=== PATIENT | male | born 1955 | race Caucasian/White ===

== ENCOUNTER 2016-07-12 13:54 | Inpatient (IN) | payer MEDICARE, OTHER ==
[~2016-07-12] VITALS: Ht 177.8 cm; Wt 88.6 kg
[2016-07-12] VITALS (11 sets, daily range): BP systolic 133–169; BP diastolic 59–82; PULSE 77–106; RESP 18–24; TEMP 97.3; O2SAT 93–97
[~2016-07-12 13:54] MED LIST: EXTR500C PO; TAB-TAB PO; TEMA15CA PO; TESTOSTERONE GEL TOP; TRAM50TA PO; VITA400D PO
[2016-07-12] MEDS ORDERED: SODIUM CHLORIDE 0.9% FLUSH 10 ML FLUSH IVF PRN (15:30)
[2016-07-12] MEDS ORDERED: AMLO5TAB2 PO (15:39)
--- NOTE | 2016-07-12 16:00 | PD ---
HPI Chief Complaint: Respiratory Symptoms Time Seen by Provider: 16:00 Travel History International Travel<30 days: No Contact w/Intl Traveler<30days: No Traveled to known affect area: No History of Present Illness HPI 60-year-old male with a history of hypertension and hyperlipidemia presents to the emergency department for evaluation of shortness of breath and productive cough for 2 weeks. The patient states that he had a productive cough with yellow sputum for the last 2 weeks. States that he has not been able to cough over the last several days due to severe rib pain after coughing for so long. He states that he has had chills and night sweats over the past week as well. He states that he went to [facility] walk in clinic today and they did chest x-ray which showed he had "fluid" in his lungs. He denies fever , chest pain, lightheadedness, dizziness, vomiting, diarrhea, abdominal pain, swelling of the extremities. Denies any history of heart disease or [place]. Denies a history of blood clots. No recent travel or sick contacts. Denies any history of lung disease however admits to a 40 year smoking history, quit 5 years ago. No other complaints. PFSH Past Medical History Cancer: No Cardiovascular Problems: No Diabetes: No Endocrine: No Genitourinary: Yes (ELEVATED PSA) Hepatitis: Yes (HEP C) Hiatal Hernia: No Hypertension: Yes Immune Disorder: No Medical other: Yes (DELAYED PRESSURE URTICARIA) Musculoskeletal: No Neurologic: No Psychiatric: No Reproductive: No Respiratory: Yes (RECENT HX OF SEVERE BRONCHITIS) Thyroid Disease: No Past Surgical History AICD: No Joint Replacement: No Pacemaker: No Other Surgery: Yes Social History Alcohol Use: No Tobacco Use: No Substance Use: No Allergies-Medications (Allergen,Severity, Reaction): Coded Allergies: No Known Allergies (Unverified , 07/12/16) Reported Meds & Prescriptions Reported Meds & Active Scripts Active Reported Viagra (Sildenafil Citrate) 100 Mg Tab 100 Mg PO DAILY PRN Ventolin Hfa 18 GM Inh (Albuterol Sulfate) 90 Mcg/Act Aer 1 Puff INH Q4H PRN Rosuvastatin (Rosuvastatin Calcium) 5 Mg Tab 5 Mg PO DAILY Ranitidine (Ranitidine HCl) 150 Mg Tab 150 Mg PO BID Seroquel (Quetiapine Fumarate) 300 Mg Tab 300 Mg PO HS Ibuprofen 400 Mg Tab 400 Mg PO Q6H PRN Hydrocodone-Acetaminophen 10-325 mg Tab 1 Tab PO Q4H PRN Depakote DR (Divalproex Sodium) 500 Mg Tabdr 1,000 Mg PO DAILY Clobetasol Emulsion Topical 0.05% Foam 1 Applic TOPICAL BID Amlodipine (Amlodipine Besylate) 5 Mg Tab 5 Mg PO DAILY Review of Systems Except as stated in HPI: all other systems reviewed are Neg Physical Exam Narrative GENERAL: Well-nourished and well-developed pleasant male patient in no acute distress. SKIN: Warm and dry. HEAD: Normocephalic and atraumatic. EYES: No injection, drainage, or hyphema noted. PERRLA. EOMI. ENT: No nasal drainage noted. Oropharynx is clear. NECK: Supple and the trachea is midline. CARDIOVASCULAR: Regular rate and rhythm. RESPIRATORY: Decreased breath sounds at bases. No accessory muscle use, wheezing, rhonchi, or crackles. Tenderness to palpation of right ribs, no obvious deformities or step off noted. GASTROINTESTINAL: Abdomen is soft, non-tender, and nondistended. MUSCULOSKELETAL: No obvious deformities, swelling, cyanosis, or ecchymosis is present throughout the upper and lower extremities. Patient has full range of motion without any signs of neurovascular compromise. NEUROLOGICAL: Awake, alert, and oriented. Normal speech and gait. Cranial nerves are grossly intact. Data Data Last Documented VS Vital Signs Date Time Temp Pulse Resp B/P Pulse Ox O2 Delivery O2 Flow Rate FiO2 07/12/16 17:56 101 18 169/82 94 Nasal Cannula 2 07/12/16 13:55 97.3 Orders Complete Blood Count With Diff (07/12/16:) Comprehensive Metabolic Panel (07/12/16:) B-Type Natriuretic Peptide (07/12/16:) Act Partial Throm Time (Ptt) (07/12/16:) Prothrombin Time / Inr (Pt) (07/12/16:) Magnesium (Mg) (07/12/16 15:) Ckmb (Isoenzyme) Profile (07/12/16:) Troponin I (07/12/16 15:) Iv Access Insert/Monitor (07/12/16:) Electrocardiogram (07/12/16:) Ecg Monitoring (4/14/17 15:22) Oximetry (07/12/16 15:22) Oxygen Administration (07/12/16 15:22) Chest, Single Ap (07/12/16 15:22) Sodium Chloride 0.9% Flush (Ns Flush) (07/12/16 15:30) Sodium Chlor 0.9% 1000 Ml Inj (Ns 1000 M (07/12/16 16:01) Vascular Access Team Consult PRN (07/12/16 17:21) Ceftriaxone Inj (Rocephin Inj) (07/12/16 17:45) Azithromycin Inj (Zithromax Inj) (07/12/16 17:45) Potassium Chloride Eff (K-Lyte Cl Eff) (07/12/16 17:45) Ct Thorax/ Chest Wo Iv Contras (07/12/16 17:47) Sodium Chlor 0.9% 1000 Ml Inj (Ns 1000 M (07/12/16 18:47) Admit To Inpatient (07/12/16 ) Code Status (07/12/16 18:46) Vital Signs (Adult) Q4H (07/12/16 18:46) Activity Oob With Assistance (07/12/16 18:46) Diet Npo (07/12/16 Dinner) Sodium Chloride 0.9% Flush (Ns Flush) (07/12/16 19:00) Sodium Chloride 0.9% Flush (Ns Flush) (07/12/16 21:00) Acetaminophen (Tylenol) (07/12/16 19:00) Ondansetron Inj (Zofran Inj) (07/12/16 19:00) Bisacodyl Supp (Dulcolax Supp) (07/12/16 19:00) Temazepam (Restoril) (07/12/16 19:00) Basic Metabolic Panel (Bmp) (07/13/16 06:00) Complete Blood Count With Diff (07/13/16 06:00) Resp Oxygen Kermit C Titrat 1-4 L (07/12/16 ) Pt Request For Service (07/12/16 18:46) Scd Bilateral/Knee High PJ.BID (07/12/16 18:46) Naloxone Inj (Narcan Inj) (07/12/16 19:00) Inpatient Certification (07/12/16 ) Lactic Acid Sepsis Protocol (07/12/16 18:47) Influenzae A/B Antigen (07/12/16 18:47) Blood Culture (07/12/16 18:47) Total Protein (07/12/16 18:48) Ldh Serum (07/12/16 18:48) Us Guided Thoracentesis (07/12/16 ) Consent (07/12/16 18:48) Amylase, Pleural Fluid (07/12/16 18:48) Glucose, Pleural Fluid (07/12/16 18:48) Ldh, Pleural Fluid (07/12/16 18:48) Pleural Fluid Ph (07/12/16 18:48) Pleural Fl Cell Count + Diff (07/12/16 18:48) Fluid Culture And Gram Stain (07/12/16 18:48) Fluid Afb Culture And Stain (07/12/16 18:48) Fluid Fungus Culture And Stain (07/12/16 18:48) Cytology Request For Service (07/12/16 18:48) Total Protein, Pleural Fluid (07/12/16 18:48) Piperacil-Tazo 3.375 Gm Premix (Zosyn 3. (07/12/16 19:00) Labs Laboratory Tests Test 07/12/16 16:30 White Blood Count 30.2 TH/MM3 Red Blood Count 4.45 MIL/MM3 Hemoglobin 12.7 GM/DL Hematocrit 37.4 % Mean Corpuscular Volume 84.1 FL Mean Corpuscular Hemoglobin 28.6 PG Mean Corpuscular Hemoglobin 34.0 % Concent Red Cell Distribution Width 15.7 % Platelet Count 701 TH/MM3 Mean Platelet Volume 7.8 FL Neutrophils (%) (Auto) 84.0 % Lymphocytes (%) (Auto) 8.3 % Monocytes (%) (Auto) 7.1 % Eosinophils (%) (Auto) 0.1 % Basophils (%) (Auto) 0.5 % Neutrophils # (Auto) 25.4 TH/MM3 Lymphocytes # (Auto) 2.5 TH/MM3 Monocytes # (Auto) 2.1 TH/MM3 Eosinophils # (Auto) 0.0 TH/MM3 Basophils # (Auto) 0.1 TH/MM3 CBC Comment AUTO DIFF Differential Total Cells 100 Counted Neutrophils % (Manual) 81 % Band Neutrophils % 7 % Lymphocytes % 6 % Monocytes % 5 % Basophils % 1 % Neutrophils # (Manual) 26.6 TH/MM3 Differential Comment FINAL DIFF MANUAL Toxic Granulation 1+ Toxic Vacuolation PRESENT Platelet Estimate HIGH Platelet Morphology Comment NORMAL Red Cell Morphology Comment NORMAL Prothrombin Time 14.5 SEC Prothromb Time International 1.3 RATIO Ratio Activated Partial 28.0 SEC Thromboplast Time Sodium Level 132 MEQ/L Potassium Level 3.2 MEQ/L Chloride Level 94 MEQ/L Carbon Dioxide Level 27.1 MEQ/L Anion Gap 11 MEQ/L Blood Urea Nitrogen 10 MG/DL Creatinine 0.75 MG/DL Estimat Glomerular Filtration 106 ML/MIN Rate Random Glucose 112 MG/DL Calcium Level 8.6 MG/DL Magnesium Level 2.4 MG/DL Total Bilirubin 1.6 MG/DL Aspartate Amino Transf 41 U/L (AST/SGOT) Alanine Aminotransferase 103 U/L (ALT/SGPT) Alkaline Phosphatase 169 U/L Total Creatine Kinase 33 U/L Troponin I LESS THAN 0.02 NG/ML B-Type Natriuretic Peptide 52 PG/ML Total Protein 7.5 GM/DL Albumin 1.9 GM/DL [facility] Medical Decision Making Medical Screen Exam Complete: Yes Emergency Medical Condition: Yes Differential Diagnosis Pneumonia versus pleural effusion versus PE versus ACS versus heart failure Narrative Course 60-year-old male presents to the emergency department for evaluation of shortness of breath and cough for 2 weeks. Patient is afebrile. He is initially tachycardic with a heart rate of 106 bpm. Oxygen saturation is 93% on 2 L. Decreased breath sounds at the bases. Patient does have mild work of breathing. IV access is obtained, labs drawn and sent. Patient is placed on cardiac telemetry and pulse oximetry monitoring. Chest x-ray is been ordered and is pending. CBC shows an elevated white blood cell count of 30.2 with 7% band neutrophils. Mild anemia with a hemoglobin of 12.7, hematocrit 37.4. CMP shows mild hypokalemia with a potassium of 3.2 and slightly elevated LFTs. Troponin is less than 0.02 BNP is 52. Coags are unremarkable. Chest x-ray shows partial subtotal opacification of the right hemithorax characteristic of a large effusion with underlying lung consolidation or mass. Patient is administered IV Rocephin and Zithromax. He'll be [facility] to [facility]'s service and will get a thoracentesis by interventional radiology. I discussed the case with my attending physician Dr. Abreu who is aware of the patients history, physical examination findings, and treatment plan. Sepsis Criteria SIRS Criteria (2 or more): Heart rate over 90, WBC > 45625, < 4000 or > 10% bands Sepsis Criteria (SIRS+source): Infect source susp/known Physician Communication Physician Communication I spoke with Dr. Rdz [facility] who agrees to admit the patient to his service. Diagnosis Primary Impression: Sepsis Qualified Code: A41.9 - Sepsis, due to unspecified organism Additional Impressions: Pleural effusion on right Pneumonia Qualified Code: J18.9 - Pneumonia of right lung due to infectious organism, unspecified part of lung Admitting Information Admitting Physician Requests: Admit Charis Adam Jul 12, 2016 16:00
[2016-07-12] MEDS ORDERED: SODIUM CHLOR 0.9% 1000 ML INJ 1,000 ML IV SCH ×2 (16:01→18:47)
[2016-07-12 17:02] LABS: AUTOMATED NEUTROPHIL # 25.4 TH/MM3 (1.8-7.7); BASOPHIL # 0.1 TH/MM3 (0-0.2); BASOPHIL % 0.5 % (0.0-2.0); EOSINOPHIL % 0.1 % (0.0-4.0); HEMATOCRIT 37.4 % (39.0-51.0); LYMPH % 8.3 % (9.0-44.0); LYMPHOCYTE # 2.5 TH/MM3 (1.0-4.8); MEAN CELL VOLUME 84.1 FL (80.0-100.0); MEAN CORPUSCULAR HEMOGLOBIN 28.6 PG (27.0-34.0); MONO % 7.1 % (0.0-8.0); PLATELET COUNT 701 TH/MM3 (150-450); RED BLOOD COUNT 4.45 MIL/MM3 (4.50-5.90); RED CELL DISTRIBUTION WIDTH 15.7 % (11.6-17.2); WHITE BLOOD COUNT 30.2 TH/MM3 (4.0-11.0)
[2016-07-12 17:03] LABS: HEMO FLAGS AUTO DIFF
[2016-07-12 17:22] LABS: INTERNATIONAL NORMALIZED RATIO 1.3 RATIO; PROTHROMBIN TIME - PATIENT 14.5 SEC (9.8-11.6)
[2016-07-12 17:25] LABS: ANION GAP 11 MEQ/L (5-15); AST (GOT) 41 U/L (15-37); BICARBONATE 27.1 MEQ/L (21.0-32.0); BLOOD UREA NITROGEN 10 MG/DL (7-18); CHLORIDE 94 MEQ/L (98-107); GLOMERULAR FILTRATION RATE 106 ML/MIN (>89); MAGNESIUM 2.4 MG/DL (1.5-2.5); POTASSIUM 3.2 MEQ/L (3.5-5.1); SODIUM (NA) 132 MEQ/L (136-145)
[2016-07-12 17:29] LABS: ALKALINE PHOSPHATASE 169 U/L (45-117); ALT (GPT) 103 U/L (12-78); TOTAL BILIRUBIN ADULT 1.6 MG/DL (0.2-1.0)
[2016-07-12 17:33] LABS: CREATINE KINASE 33 U/L (39-308)
--- NOTE | 2016-07-12 17:33 | RADRPT ---
EXAM DATE/TIME: 07/12/2016 16:22 [facility] COMPARISON: No previous studies available for comparison. INDICATIONS : Shortness of breath, discomfort in right chest MEDICAL HISTORY : None. SURGICAL HISTORY : None. ENCOUNTER: Initial ACUITY: 1 day PAIN SCORE: 0/10 LOCATION: Right chest FINDINGS: A single view of the chest demonstrates partial subtotal opacification of the right hemithorax. Heart is normal in size. Left lung is clear. CONCLUSION: Partial subtotal opacification of the right hemithorax characteristic of a large effusion with underl sue lung consolidation or mass. Pillo Benitez MD on July 12, 2016 at 17:30 Board Certified Radiologist. This report was verified electronically.
[2016-07-12] MEDS ORDERED: POTASSIUM CHLORIDE 25 MEQ EFFERVESCENT TAB PO ONE (17:45)
[2016-07-12] MEDS ORDERED: cefTRIAXone INJ 1,000 MG in SODIUM CHLORIDE 0.9% INJ 100 ML IV ONE (17:45)
[2016-07-12] MEDS ORDERED: AZITHROMYCIN INJ 500 MG in SODIUM CHLOR 0.9% 250 ML INJ 250 ML IV ONE (17:45)
[2016-07-12] MEDS ORDERED: [UNRECOGNIZED DRUG - CODE] TOPICAL (17:46)
[2016-07-12] MEDS ORDERED: DEPA500T PO (17:46)
[2016-07-12 17:49] LABS: BANDS 7 % (0-6); BASOPHILS 1 % (0-2); NEUTROPHIL # MANUAL DIFF 26.6 TH/MM3 (1.8-7.7); POLYS (SEG NEUTROPHILS) 81 % (16-70); WBC DIFF SAMPLE 100
[2016-07-12 17:50] LABS: PLATELET ESTIMATE SMEAR HIGH (NORMAL); PLATELET MORPHOLOGY NORMAL (NORMAL); SCAN/DIFF FINAL DIFF MANUAL; TOXIC GRANULATION 1+ (NORMAL); TOXIC VACUOLATION PRESENT (NONE SEEN)
[2016-07-12] MEDS ORDERED: VENTAER INH (17:53)
[2016-07-12] MEDS ORDERED: VIAG100T PO (17:53)
[2016-07-12] MEDS ORDERED: HYDR-3583 PO (17:53)
[2016-07-12] MEDS ORDERED: IBUP400T20 PO (17:53)
[2016-07-12] MEDS ORDERED: ROSU1TAB4 PO (17:53)
[2016-07-12] MEDS ORDERED: RANI150T PO (17:53)
[2016-07-12] MEDS ORDERED: SERO300T PO (17:53)
[2016-07-12] MEDS ORDERED: NON-FORMULARY DRUG (Rosuvastatin 5 MG) PO SCH (19:00)
[2016-07-12] MEDS ORDERED: ONDANSETRON HCL 4 MG/2 ML VIAL IVP PRN (19:00)
[2016-07-12] MEDS ORDERED: RESP: ALBUTEROL 2.5 MG/IPRATROPIUM 0.5 MG NEB (PRN) NEB (19:00)
[2016-07-12] MEDS ORDERED: TEMAZEPAM 15 MG CAP PO PRN (19:00)
[2016-07-12] MEDS ORDERED: BISACODYL 10 MG SUPP RECTAL PRN (19:00)
[2016-07-12] MEDS ORDERED: NALOXONE HCL 0.4 MG/ML AMP IV PRN (19:00)
[2016-07-12] MEDS ORDERED: SODIUM CHLORIDE 0.9% FLUSH 10 ML FLUSH IV FLUSH PRN (19:00)
[2016-07-12] MEDS ORDERED: ACETAMINOPHEN 325 MG TAB PO PRN (19:00)
[2016-07-12 19:10] LABS: LDH SERUM 209 U/L (87-241)
[2016-07-12] MEDS ORDERED: PILL SPLITTER OTHER PRN (19:15)
--- NOTE | 2016-07-12 19:52 | RADRPT ---
EXAM DATE/TIME: 07/12/2016 18:11 [facility] COMPARISON: No previous studies available for comparison. INDICATIONS : Shortness of breath and cough. RADIATION DOSE: 6.17 CTDIvol (mGy) MEDICAL HISTORY : Hypertension. Hepatitis C. Bronchitis. SURGICAL HISTORY : None. ENCOUNTER: Initial ACUITY: 2 weeks PAIN SCALE: 5/10 LOCATION: chest TECHNIQUE: Volumetric scanning of the chest was performed. Using automated exposure control and adjustment of t he mA and/or kV according to patient size, radiation dose was kept as low as reasonably achievable to obtain optimal diagnostic quality images. FINDINGS: There is an enormous loculated right pleural effusion filling the entire mid to lower chest cavity on the right sparing some portions of the anterior and medial right upper lobe region. There is adjacen t compressive atelectasis. The contralateral left lung is notable for minimal streaky parenchymal [place] in the posterior medial left base which may be atelectasis or scarring. There are clustered mildly prominent lymph nodes in the central mediastinum with nodes in the precari nal subcarinal and paratracheal region exceeding 1 cm in short axis dimension. There is no evidence of axillary adenopathy or chest wall destructive change. There are in the visual ized upper abdomen cavity adrenals appear benign. CONCLUSION: Enormous loculated right pleural effusion. Enlarged mediastinal lymph nodes. Paras Chang MD on July 12, 2016 at 19:46 Board Certified Radiologist. This report was verified electronically.
[2016-07-12] MEDS ORDERED: QUEtiapine FUMARATE 300 MG TAB PO SCH (21:00)
[2016-07-12] MEDS ORDERED: NON-FORMULARY DRUG (Ranitidine 150 MG) PO SCH (21:00)
[2016-07-12] MEDS ORDERED: LIDOCAINE 1%/EPINEPHrine 1:100,000 SOLN 20 ML VIAL ONE (21:01)
[2016-07-12] MEDS ORDERED: MIDAZOLAM HCL 5 MG/5 ML VIAL ONE (21:14)
[2016-07-12] MEDS ORDERED: fentaNYL CITRATE 250 MCG/5 ML AMP ONE (21:14)
[2016-07-12] MEDS: PIPERACIL-TAZO 3.375 GM PREMIX 50 ML IV SCH (22:26)
--- NOTE | 2016-07-12 22:53 | RADRPT ---
EXAM DATE/TIME: 07/12/2016 21:17 INDICATIONS : Right sided pleural effusion. SEDATION TIME: 15 minutes MEDICATION(S): 1.) 3 mg midazolam (Versed) IV 2.) 150 mcg fentanyl (Sublimaze) IV DEVICE(S): 1.) 12 gauge Ebenezer Non-Locking 2.) 18 gauge Johnson blunt needle 10cm FLUID: Total volume of 2000 cc of cloudy, yellow fluid was removed. Fluid was sent for laboratory ordered studies. MEDICAL HISTORY : Hypertension. Hepatitis C. Bronchitis SURGICAL HISTORY : None. ENCOUNTER: Initial ACUITY: 1 day PAIN SCORE: 7/10 LOCATION: Right chest PROCEDURE: 1. CT guided Right thoracentesis with chest tube placement. The site was prepped in sterile fashion. Full sterile technique was used, including cap, mask, steri le gloves and gown and a large sterile sheet. Hand hygiene and 2% chlorhexidine and/or betadine/alco hol prep was utilized per protocol for cutaneous antisepsis. The skin and subcutaneous tissues were infiltrated with local anesthetic solution. Using automated exposure control and adjustment of the m A and/or kV according to patient size, radiation dose was kept as low as reasonably achievable to obt ain optimal diagnostic quality images. Under CT guidance a 12 American nonlocking Boncarbo pigtail thoracostomy catheter was placed in the post erior right pleural space. 50 mL fluid were gently aspirated out of the chest and sent for requested labs. Chest tube was inserted and connected to Pleur-evac suction. Post procedural scan show reducti on in the amount of fluid with no evidence of hematoma or other complication. The patient tolerated the procedure well and there were no complications. EKG and oximetry remained s table throughout the procedure. The patient was sent to recovery in stable condition. CONCLUSION: Uncomplicated CT-guided thoracentesis. Paras Chang MD on July 12, 2016 at 22:49 Board Certified Radiologist. This report was verified electronically.
[2016-07-12] MEDS: QUEtiapine FUMARATE 100 MG TAB PO SCH (22:58)
[2016-07-12] MEDS: SODIUM CHLORIDE 0.9% FLUSH 10 ML FLUSH IV FLUSH SCH (22:58)
[2016-07-12] MEDS: FAMOTIDINE 20 MG TAB PO SCH (22:58)
[2016-07-12 23:13] LABS: GLUCOSE,PLEURAL FLUID LESS THAN 1 MG/DL
[2016-07-12] MEDS: ACETAMINOPHEN/HYDROcodone 325 MG/10 MG TAB PO PRN (23:18)
--- NOTE | 2016-07-12 23:38 | PD.RAD ---
Post CT Procedure Prog Note Pre Procedure Diagnosis: (1) Pleural effusion on right (2) Sepsis (3) Pneumonia Post Procedure Diagnosis: (1) Pleural effusion on right (2) Sepsis (3) Pneumonia Procedure Date: Jul 12, 2016 Supervising Radiologist: Paras Chang Proceduralist/Assist: Alfred Tran RT(R) Anesthesia: Local, Conscious Sedation Plan of Activity Patient to Unit: Nursing Unit Patient Condition: Fair See PACS Report for procedural detail/treatment Drainage Procedure Procedure 1 Imaging Guidance: CT Side: Right Procedure Type: Chest Tube Non-Tunneled Procedure: Placement Tajik: 12 Drainage: Pleurovac Fluid Description: Cloudy, Purulent Paras Chang MD Jul 12, 2016 23:37
[2016-07-13] VITALS (9 sets, daily range): BP systolic 109–149; BP diastolic 58–71; PULSE 72–88; RESP 18–20; TEMP 97.4–98.3; O2SAT 93–95
[2016-07-13] LABS: PLEURAL FLUID LYMPHS 0 %
[2016-07-13] MEDS: PIPERACIL-TAZO 3.375 GM PREMIX 50 ML IV SCH ×4 (04:28→20:47)
[2016-07-13] MEDS: DIVALPROEX DR 500 MG TABEC PO SCH (08:25)
[2016-07-13] MEDS: ATORVASTATIN 10 MG TAB PO SCH (08:26)
[2016-07-13] MEDS: amLODIPine BESYLATE 5 MG TAB PO SCH (08:26)
[2016-07-13] MEDS: SODIUM CHLORIDE 0.9% FLUSH 10 ML FLUSH IV FLUSH SCH ×2 (08:26→20:48)
[2016-07-13] MEDS: ACETAMINOPHEN/HYDROcodone 325 MG/10 MG TAB PO PRN ×4 (08:27→20:49)
[2016-07-13] MEDS: FAMOTIDINE 20 MG TAB PO SCH ×2 (08:27→20:48)
--- NOTE | 2016-07-13 08:46 | RADRPT ---
EXAM DATE/TIME: 07/13/2016 08:06 [facility] COMPARISON: CHEST SINGLE AP, July 12, 2016, 16:22. INDICATIONS : Shortness of breath. MEDICAL HISTORY : None. SURGICAL HISTORY : Thoracentesis. ENCOUNTER: Subsequent ACUITY: 2 days PAIN SCORE: Non-responsive. LOCATION: chest FINDINGS: Chest tube is present on the right side. Right pleural effusion has decreased in size with moderate l oculated pleural effusion remaining. There is prominence of the mediastinum representing adenopathy i dentified on the patient's prior chest CT and there is also some degree of airspace consolidation in the right mid and lower lung. No definite pneumothorax is seen for technique. CONCLUSION: Reduction in size of the right pleural effusion. Nitin Ling MD on July 13, 2016 at 8:43 Board Certified Radiologist. This report was verified electronically.
--- NOTE | 2016-07-13 09:46 | HHI.HP ---
HPI Service [facility] Hospitalists Primary Care Physician Sidney Steiner Admission Diagnosis Sepsis, Large Rt Pleural Effusion, Pneumonia Chief Complaint: cough sob Travel History International Travel<30 Days: No Contact w/Intl Traveler <30 Da: No Traveled to Known Affected Are: No Sepsis Criteria SIRS Criteria (2 or more): Heart rate over 90, RR > 20 or PaCO2 < 32 History of Present Illness Patient is a pleasant 60-year-old male with history of hypertension and diabetes who presented to the ER with complaint of her duct of cough and shortness of breath for 2 weeks. Patient complains of severe rib pain from prolonged coughing for the last 2 weeks. Patient complained of chills and night sweats. Outpatient chest x-ray at [facility] showed pleural effusion prompting referral to the [place] ER. Patient denies any travel or recent sick contacts. CT scan of the chest (07/12/16) showed enormous, loculated, right pleural effusion. Also, showed mediastinal lymphadenopathy. I discussed the case with radiology upon admission. Patient underwent thoracentesis with placement of chest tube at right chest. Pleural fluid sent to laboratory for analysis and pathology. Past Family Social History Past Medical History 1) hypertension 2) diabetes, last hemoglobin A1c 6.2 3) hyperlipidemia, unspecified 4) obesity 5) bipolar disorder, currently in remission 6) chronic lumbar pain 7) vitamin D deficiency Past Surgical History None Reported Medications Reported Meds & Active Scripts Active Reported Viagra (Sildenafil Citrate) 100 Mg Tab 100 Mg PO DAILY PRN Ventolin Hfa 18 GM Inh (Albuterol Sulfate) 90 Mcg/Act Aer 1 Puff INH Q4H PRN Rosuvastatin (Rosuvastatin Calcium) 5 Mg Tab 5 Mg PO DAILY Ranitidine (Ranitidine HCl) 150 Mg Tab 150 Mg PO BID Seroquel (Quetiapine Fumarate) 300 Mg Tab 300 Mg PO HS Ibuprofen 400 Mg Tab 400 Mg PO Q6H PRN Hydrocodone-Acetaminophen 10-325 mg Tab 1 Tab PO Q4H PRN Depakote DR (Divalproex Sodium) 500 Mg Tabdr 1,000 Mg PO DAILY Clobetasol Emulsion Topical 0.05% Foam 1 Applic TOPICAL BID Amlodipine (Amlodipine Besylate) 5 Mg Tab 5 Mg PO DAILY Allergies: Coded Allergies: No Known Allergies (Unverified , 07/12/16) Family History Noncontributory Social History - On disability - Lives with domestic partner - Former smoker, 40 years smoking history, quit 4 years ago - Rare alcohol use - No illicit street drugs Physical Exam Vital Signs Vital Signs Date Time Temp Pulse Resp B/P Pulse Ox O2 Delivery O2 Flow Rate FiO2 07/13/16 08:00 98.3 72 18 116/66 95 07/13/16 05:21 97.4 79 18 137/69 95 07/13/16 02:18 85 07/13/16 02:00 Nasal Cannula 4.00 07/13/16 00:58 97.8 88 20 137/71 93 07/13/16 00:32 85 18 149/66 94 Nasal Cannula 4 07/13/16 00:22 18 07/12/16 23:36 18 07/12/16 23:19 77 18 149/59 94 Nasal Cannula 4 07/12/16 23:00 93 18 146/65 95 07/12/16 22:49 89 18 133/61 94 07/12/16 22:20 92 18 142/60 97 Nasal Cannula 4 07/12/16 21:21 94 Nasal Cannula 4.00 07/12/16 21:05 95 Nasal Cannula 4.00 07/12/16 20:23 95 18 148/77 94 Nasal Cannula 4 07/12/16 19:29 96 18 145/78 94 Nasal Cannula 4 07/12/16 19:28 94 Nasal Cannula 4 07/12/16 17:56 101 18 169/82 94 Nasal Cannula 2 07/12/16 16:00 93 Nasal Cannula 2 07/12/16 16:00 93 Nasal Cannula 2 07/12/16 15:32 98 22 93 Nasal Cannula 2 07/12/16 13:55 97.3 106 24 150/77 95 Room Air Physical Exam GENERAL: This is a well-nourished, well-developed patient, in no apparent distress. SKIN: No rashes, ecchymoses or lesions. Cool and dry. HEAD: Atraumatic. Normocephalic. No temporal or scalp tenderness. EYES: Pupils equal round and reactive. Extraocular motions intact. No scleral icterus. No injection or drainage. ENT: Nose without bleeding, purulent drainage or septal hematoma. Throat without erythema, tonsillar hypertrophy or exudate. Uvula midline. Airway patent. NECK: Trachea midline. No JVD or lymphadenopathy. Supple, nontender, no meningeal signs. CARDIOVASCULAR: Regular rate and rhythm without murmurs, gallops, or rubs. RESPIRATORY: Clear to auscultation. Breath sounds equal bilaterally. No wheezes , rales, or rhonchi. GASTROINTESTINAL: Abdomen soft, non-tender, nondistended. No hepato-splenomegaly , or palpable masses. No guarding. MUSCULOSKELETAL: Extremities without clubbing, cyanosis, or edema. No joint tenderness, effusion, or edema noted. No calf tenderness. Negative Homans sign bilaterally. NEUROLOGICAL: Awake and alert. Cranial nerves II through XII intact. Motor and sensory grossly within normal limits. Five out of 5 muscle strength in all muscle groups. Normal speech. Laboratory Laboratory Tests Test 07/12/16 07/12/16 07/12/16 16:30 18:50 21:45 White Blood Count 30.2 Red Blood Count 4.45 Hemoglobin 12.7 Hematocrit 37.4 Mean Corpuscular Volume 84.1 Mean Corpuscular Hemoglobin 28.6 Mean Corpuscular Hemoglobin 34.0 Concent Red Cell Distribution Width 15.7 Platelet Count 701 Mean Platelet Volume 7.8 Neutrophils (%) (Auto) 84.0 Lymphocytes (%) (Auto) 8.3 Monocytes (%) (Auto) 7.1 Eosinophils (%) (Auto) 0.1 Basophils (%) (Auto) 0.5 Neutrophils # (Auto) 25.4 Lymphocytes # (Auto) 2.5 Monocytes # (Auto) 2.1 Eosinophils # (Auto) 0.0 Basophils # (Auto) 0.1 CBC Comment AUTO DIFF Differential Total Cells 100 Counted Neutrophils % (Manual) 81 Band Neutrophils % 7 Lymphocytes % 6 Monocytes % 5 Basophils % 1 Neutrophils # (Manual) 26.6 Differential Comment FINAL DIFF MANUAL Toxic Granulation 1+ Toxic Vacuolation PRESENT Platelet Estimate HIGH Platelet Morphology Comment NORMAL Red Cell Morphology Comment NORMAL Prothrombin Time 14.5 Prothromb Time International 1.3 Ratio Activated Partial 28.0 Thromboplast Time Sodium Level 132 Potassium Level 3.2 Chloride Level 94 Carbon Dioxide Level 27.1 Anion Gap 11 Blood Urea Nitrogen 10 Creatinine 0.75 Estimat Glomerular Filtration 106 Rate Random Glucose 112 Calcium Level 8.6 Magnesium Level 2.4 Total Bilirubin 1.6 Aspartate Amino Transf 41 (AST/SGOT) Alanine Aminotransferase 103 (ALT/SGPT) Alkaline Phosphatase 169 Lactate Dehydrogenase 209 Total Creatine Kinase 33 Troponin I LESS THAN 0.02 B-Type Natriuretic Peptide 52 Total Protein 7.5 Albumin 1.9 Lactic Acid Level 1.6 Pleural Fluid Total Protein 5.0 Pleural Fluid LDH 3185 Pleural Fluid Glucose LESS THAN 1 Pleural Fluid Amylase 13 Pleural Fluid pH 7.0 Pleural Fluid WBC 88406 Pleural Fluid RBC 0 Pleural Fluid Neutrophils 100 Pleural Fluid Lymphocytes 0 Date/Time Procedure Status Source Growth 07/12/16 21:45 Gram Stain Received Fluid Pleural Fluid Pending 07/12/16 21:45 Body Fluid Culture Received Fluid Pleural Fluid Pending 07/12/16 21:45 Fungal Smear Received Fluid Pleural Fluid Pending 07/12/16 21:45 Fungal Culture Received Fluid Pleural Fluid Pending 07/12/16 21:45 Acid Fast Stain Received Fluid Pleural Fluid Pending 07/12/16 21:45 Mycobacterial Culture Received Fluid Pleural Fluid Pending 07/12/16 18:55 Aerobic Blood Culture Received Blood Peripheral Pending 07/12/16 18:55 Anaerobic Blood Culture Received Blood Peripheral Pending 07/12/16 18:50 Influenza Types A,B Antigen (HASEEB) - Final Complete Nasal Washing NEGATIVE FOR FLU A AND B ANTIGEN.... Result Diagram: 07/12/16 1630 07/12/16 1630 Septic Shock Reassessment Heart: Regular rate and rhythm Lungs: Clear Skin: Warm Peripheral Pulses: Bounding Right Radial Bounding Left Radial Bounding Right Popliteal Bounding Left Popliteal Bounding Right Dorsalis Pedis Bounding Left Dorsalis Pedis Bounding Right Posterior Tibial Bounding Left Posterior Tibial Capillary Refill: Brisk Assessment and Plan Problem List: (1) Pleural effusion on right Status: Acute Plan: - Pt admitted with c/o productive cough and SOB x 2 weeks - Pt has a 40 yr smoking history - CT chest (07/12/16) showed enormous, loculated, right pleural effusion - findings are concerning for pulmonary cancer - pneumonia also possible. - Pt given one dose of rocephin and azithromycin in the ER (07/12/16) - Pt started on zosyn (07/12/16 - present) - Pt underwent right thoracentesis with placement of right chest tube - pleural fluid analysis shows the fluid to be exudate - pleural fluid pathology is pending - CXR (07/13/16) - right chest tube - decreased right pleural effusion with moderated loculated pleural effusion remaining - airspace consolidation at RML and RLL - pneumothorax - case d/w Radiology (07/13/16) if NO improvement of loculations by Friday, then consider tPA - anticipate consulting Oncology once pathology is available (2) DM2 (diabetes mellitus, type 2) Status: Acute Plan: - diet controlled - last HgA1C 6.2 (04/08/16) (3) HTN (hypertension) Status: Chronic Plan: - stable - norvasc (4) Bipolar disease, chronic Status: Chronic Plan: - stable - depakote, seroquel (5) Hyperlipemia Status: Chronic Plan: - continue statin Physician Certification 2 Midnight Certification Type: Admission for Inpatient Services Order for Inpatient Services The services are ordered in accordance with Medicare regulations or non- Medicare payer requirements, as applicable. In the case of services not specified as inpatient-only, they are appropriately provided as inpatient services in accordance with the 2-midnight benchmark. Estimated LOS (days): 3 3 days is the estimated time the patient will need to remain in the hospital, assuming treatment plan goals are met and no additional complications. Post-Hospital Plan: Not yet determined Problem Qualifiers (1) DM2 (diabetes mellitus, type 2): Qualified Code: E11.9 - Type 2 diabetes mellitus without complication, without long-term current use of insulin (2) HTN (hypertension): Qualified Code: I10 - Essential hypertension (3) Hyperlipemia: Qualified Code: E78.5 - Hyperlipidemia, unspecified hyperlipidemia type Mauricio Rdz DO Jul 13, 2016 09:46
[2016-07-13 09:57] LABS: BASOPHIL # 0.1 TH/MM3 (0-0.2); BASOPHIL % 0.6 % (0.0-2.0); EOSINOPHIL # 0.2 TH/MM3 (0-0.4); EOSINOPHIL % 0.8 % (0.0-4.0); HEMATOCRIT 32.8 % (39.0-51.0); LYMPH % 9.4 % (9.0-44.0); LYMPHOCYTE # 1.8 TH/MM3 (1.0-4.8); MEAN CELL VOLUME 83.3 FL (80.0-100.0); MEAN CORPUSCULAR HEMOGLOBIN 28.3 PG (27.0-34.0); MONO % 6.2 % (0.0-8.0); PLATELET COUNT 635 TH/MM3 (150-450); RED BLOOD COUNT 3.93 MIL/MM3 (4.50-5.90); RED CELL DISTRIBUTION WIDTH 16.2 % (11.6-17.2); WHITE BLOOD COUNT 19.2 TH/MM3 (4.0-11.0)
[2016-07-13 09:58] LABS: HEMO FLAGS AUTO DIFF
[2016-07-13 10:27] LABS: BICARBONATE 28.6 MEQ/L (21.0-32.0); POTASSIUM 3.7 MEQ/L (3.5-5.1)
[2016-07-13 10:55] LABS: BANDS 4 % (0-6); MYELOCYTES 2 % (0-0); NEUTROPHIL # MANUAL DIFF 15.9 TH/MM3 (1.8-7.7); PLATELET ESTIMATE SMEAR HIGH (NORMAL); POLYS (SEG NEUTROPHILS) 76 % (16-70); PROMYELOCYTES 1 % (0-0); WBC DIFF SAMPLE 100
[2016-07-13 10:56] LABS: PLATELET MORPHOLOGY NORMAL (NORMAL); SCAN/DIFF FINAL DIFF MANUAL
--- NOTE | 2016-07-13 15:49 | EKG ---
Date Performed: 07/12/2016 Time Performed: 16:22:45 PTAGE: 60 years EKG: SINUS TACHYCARDIA POSSIBLE LEFT ATRIAL ENLARGEMENT INCOMPLETE RIGHT BUNDLE BRANCH BLOCK MOD ERATE ST DEPRESSION ABNORMAL ECG PREVIOUS TRACING : 07/15/2012 08.56.48 Compared to previous tracing, the atrial abnormality and incomplete right bundle branch block are new. ST-T changes are slightly more prominent. DOCTOR: Mino Galicia Interpretating Date/Time 07/15/2016 07:17:23
[2016-07-13] MEDS: QUEtiapine FUMARATE 100 MG TAB PO SCH (20:48)
[2016-07-13] MEDS: HYDROmorphone HCL PF 1 MG/ML VIAL IV PUSH PRN (22:30)
[2016-07-14 00:26] VITALS: BP 133/69; PULSE 79; RESP 16; TEMP 98; O2SAT 96
[2016-07-14] MEDS: PIPERACIL-TAZO 3.375 GM PREMIX 50 ML IV SCH ×4 (01:13→21:04)
[2016-07-14 04:00] VITALS: BP 144/63; PULSE 95; RESP 18; TEMP 98.5; O2SAT 91
[2016-07-14] MEDS: HYDROmorphone HCL PF 1 MG/ML VIAL IV PUSH PRN ×4 (04:40→21:07)
[2016-07-14 07:10] LABS: AUTOMATED NEUTROPHIL # 16.8 TH/MM3 (1.8-7.7); BASOPHIL # 0.1 TH/MM3 (0-0.2); BASOPHIL % 0.3 % (0.0-2.0); EOSINOPHIL # 0.4 TH/MM3 (0-0.4); EOSINOPHIL % 1.8 % (0.0-4.0); HEMATOCRIT 33.4 % (39.0-51.0); LYMPH % 9.3 % (9.0-44.0); LYMPHOCYTE # 1.9 TH/MM3 (1.0-4.8); MEAN CELL VOLUME 84.1 FL (80.0-100.0); MEAN CORPUSCULAR HEMOGLOBIN 28.3 PG (27.0-34.0); MEAN CORPUSCULAR HGB CONC 33.6 % (32.0-36.0); MONO % 7.1 % (0.0-8.0); NEUT % 81.5 % (16.0-70.0); PLATELET COUNT 655 TH/MM3 (150-450); RED BLOOD COUNT 3.97 MIL/MM3 (4.50-5.90); RED CELL DISTRIBUTION WIDTH 15.8 % (11.6-17.2); WHITE BLOOD COUNT 20.7 TH/MM3 (4.0-11.0)
[2016-07-14 07:18] LABS: HEMO FLAGS AUTO DIFF
[2016-07-14 07:39] LABS: BICARBONATE 29.9 MEQ/L (21.0-32.0); MAGNESIUM 2.3 MG/DL (1.5-2.5); POTASSIUM 3.3 MEQ/L (3.5-5.1)
[2016-07-14 08:00] VITALS: BP 121/62; PULSE 89; RESP 18; TEMP 98.8; O2SAT 91
[2016-07-14 08:29] LABS: BANDS 5 % (0-6); EOSINOPHILS 1 % (0-4); MYELOCYTES 1 % (0-0); POLYS (SEG NEUTROPHILS) 81 % (16-70); WBC DIFF SAMPLE 100
[2016-07-14 08:30] LABS: PLATELET ESTIMATE SMEAR HIGH (NORMAL); PLATELET MORPHOLOGY NORMAL (NORMAL); SCAN/DIFF FINAL DIFF MANUAL
[2016-07-14] MEDS: ATORVASTATIN 10 MG TAB PO SCH (09:21)
[2016-07-14] MEDS: SODIUM CHLORIDE 0.9% FLUSH 10 ML FLUSH IV FLUSH SCH ×2 (09:21→21:06)
[2016-07-14] MEDS: amLODIPine BESYLATE 5 MG TAB PO SCH (09:21)
[2016-07-14] MEDS: DIVALPROEX DR 500 MG TABEC PO SCH (09:21)
[2016-07-14] MEDS: FAMOTIDINE 20 MG TAB PO SCH ×2 (09:21→21:05)
[2016-07-14 12:33] VITALS: BP 122/58; PULSE 88; RESP 19; TEMP 97.6; O2SAT 91
--- NOTE | 2016-07-14 15:58 | HHI.PR ---
Subjective Remarks No new complaints. Objective Vitals Vital Signs Date Time Temp Pulse Resp B/P Pulse Ox O2 Delivery O2 Flow Rate FiO2 07/14/16 12:33 97.6 88 19 122/58 91 07/14/16 08:00 98.8 89 18 121/62 91 07/14/16 04:00 98.5 95 18 144/63 91 07/14/16 00:26 98.0 79 16 133/69 96 07/13/16 23:13 Nasal Cannula 4.00 07/13/16 20:43 97.5 77 18 123/65 94 07/13/16 20:00 75 07/13/16 16:00 97.6 73 18 120/59 93 07/13/16 07/13/16 07/14/16 14:59 22:59 06:59 Intake Total 600 ml 820 ml Output Total 850 ml 550 ml 600 ml Balance -250 ml 270 ml -600 ml Intake Oral 600 ml 720 ml IV Total 100 ml Output Urine Total 600 ml 350 ml 450 ml Chest Tube Drainage Total 250 ml 200 ml 150 ml # Bowel Movements 0 0 Result Diagram: 07/14/16 0524 07/14/16 0524 Imaging Last Impressions Chest X-Ray 07/13/16 0000 Signed Impressions: Service Date/Time: Wednesday, July 13, 2016 08:06 - CONCLUSION: Reduction in size of the right pleural effusion. Nitin Ling MD Chest CT 07/12/16 1747 Signed Impressions: Service Date/Time: Tuesday, July 12, 2016 18:11 - CONCLUSION: Enormous loculated right pleural effusion. Enlarged mediastinal lymph nodes. Paars Chang MD Chest Tube Insertion 07/12/16 0000 Signed Impressions: Service Date/Time: Tuesday, July 12, 2016 21:17 - CONCLUSION: Uncomplicated CT-guided thoracentesis. Paras Chang MD Objective Remarks GENERAL: This is a well-nourished, well-developed patient, in no apparent distress. CARDIOVASCULAR: Regular rate and rhythm without murmurs, gallops, or rubs. RESPIRATORY: Clear to auscultation. Breath sounds equal bilaterally. No wheezes , rales, or rhonchi. GASTROINTESTINAL: Abdomen soft, non-tender, nondistended. Normal active bowel sounds MUSCULOSKELETAL: Extremities without clubbing, cyanosis, or edema. NEURO: Alert & Oriented x4 to person, place, time, situation. Moves all ext x4 A/P Problem List: (1) Pleural effusion on right Status: Acute Plan: - Pt admitted with c/o productive cough and SOB x 2 weeks - Pt has a 40 yr smoking history - CT chest (07/12/16) showed enormous, loculated, right pleural effusion - findings are concerning for pulmonary cancer - pneumonia also possible. - Pt given one dose of rocephin and azithromycin in the ER (07/12/16) - Pt started on zosyn (07/12/16 - present) - Pt underwent right thoracentesis with placement of right chest tube - pleural fluid analysis shows the fluid to be exudate - pleural fluid pathology is pending - CXR (07/13/16) - right chest tube - decreased right pleural effusion with moderated loculated pleural effusion remaining - airspace consolidation at RML and RLL - pneumothorax - 150ml output recorded from Chest tube since 7AM - case d/w Radiology (07/13/16) if NO improvement of loculations by Friday, then consider tPA - anticipate consulting Oncology once pathology is available - repeat CXR in AM\ - repeat cbc, bmp, mag in AM (2) DM2 (diabetes mellitus, type 2) Status: Acute Plan: - diet controlled - last HgA1C 6.2 (04/08/16) (3) HTN (hypertension) Status: Chronic Plan: - stable - norvasc (4) Bipolar disease, chronic Status: Chronic Plan: - stable - depakote, seroquel (5) Hyperlipemia Status: Chronic Plan: - continue statin Problem Qualifiers (1) DM2 (diabetes mellitus, type 2): Qualified Code: E11.9 - Type 2 diabetes mellitus without complication, without long-term current use of insulin (2) HTN (hypertension): Qualified Code: I10 - Essential hypertension (3) Hyperlipemia: Qualified Code: E78.5 - Hyperlipidemia, unspecified hyperlipidemia type Mauricio Rdz DO Jul 14, 2016 15:58
[2016-07-14] MEDS ORDERED: POTASSIUM CHLORIDE 20 MEQ CONTROLLED RELEASE TAB PO ONE (16:00)
[2016-07-14 16:09] VITALS: BP 111/56; PULSE 78; RESP 18; TEMP 97.7; O2SAT 93
[2016-07-14] MEDS: ACETAMINOPHEN/HYDROcodone 325 MG/10 MG TAB PO PRN (16:13)
[2016-07-14 20:00] VITALS: BP 121/61; PULSE 82; RESP 18; TEMP 97.7; O2SAT 95
[2016-07-14] MEDS: DOCUSATE SODIUM 100 MG CAP PO SCH (21:05)
[2016-07-14] MEDS: QUEtiapine FUMARATE 100 MG TAB PO SCH (21:05)
[2016-07-15] VITALS (8 sets, daily range): BP systolic 103–124; BP diastolic 56–78; PULSE 76–90; RESP 18–20; TEMP 97.5–98.3; O2SAT 91–95
[2016-07-15] MEDS: ACETAMINOPHEN/HYDROcodone 325 MG/10 MG TAB PO PRN ×4 (00:14→19:32)
[2016-07-15] MEDS: PIPERACIL-TAZO 3.375 GM PREMIX 50 ML IV SCH ×4 (03:25→20:59)
[2016-07-15] MEDS: HYDROmorphone HCL PF 1 MG/ML VIAL IV PUSH PRN ×4 (03:26→22:34)
[2016-07-15 07:23] LABS: BASOPHIL # 0.1 TH/MM3 (0-0.2); BASOPHIL % 0.5 % (0.0-2.0); EOSINOPHIL # 0.5 TH/MM3 (0-0.4); EOSINOPHIL % 3.1 % (0.0-4.0); HEMATOCRIT 32.5 % (39.0-51.0); HEMO FLAGS DIFF FINAL; LYMPH % 14.4 % (9.0-44.0); LYMPHOCYTE # 2.4 TH/MM3 (1.0-4.8); MEAN CELL VOLUME 84.9 FL (80.0-100.0); MEAN CORPUSCULAR HEMOGLOBIN 27.3 PG (27.0-34.0); MEAN CORPUSCULAR HGB CONC 32.2 % (32.0-36.0); MONO % 8.4 % (0.0-8.0); NEUT % 73.6 % (16.0-70.0); PLATELET COUNT 598 TH/MM3 (150-450); RED BLOOD COUNT 3.83 MIL/MM3 (4.50-5.90); RED CELL DISTRIBUTION WIDTH 15.4 % (11.6-17.2); WHITE BLOOD COUNT 16.4 TH/MM3 (4.0-11.0)
[2016-07-15 07:54] LABS: BICARBONATE 32.8 MEQ/L (21.0-32.0); MAGNESIUM 2.3 MG/DL (1.5-2.5); POTASSIUM 3.7 MEQ/L (3.5-5.1)
[2016-07-15] MEDS: ATORVASTATIN 10 MG TAB PO SCH (09:17)
[2016-07-15] MEDS: DOCUSATE SODIUM 100 MG CAP PO SCH ×2 (09:17→21:00)
[2016-07-15] MEDS: FAMOTIDINE 20 MG TAB PO SCH ×2 (09:17→21:00)
[2016-07-15] MEDS: DIVALPROEX DR 500 MG TABEC PO SCH (09:17)
[2016-07-15] MEDS: amLODIPine BESYLATE 5 MG TAB PO SCH (09:18)
[2016-07-15] MEDS: SODIUM CHLORIDE 0.9% FLUSH 10 ML FLUSH IV FLUSH SCH ×2 (09:21→21:03)
--- NOTE | 2016-07-15 09:25 | HHI.PR ---
Subjective Remarks Pt feels about the same. Objective Vitals heart reg lung air entry gabriela right chest tube. thick white secretion abd s/nt ext no edema Vital Signs Date Time Temp Pulse Resp B/P Pulse Ox O2 Delivery O2 Flow Rate FiO2 07/15/16 08:00 98.0 76 20 115/59 92 07/15/16 04:00 97.7 78 18 121/73 93 07/15/16 00:00 98.3 80 20 116/78 91 07/14/16 20:15 Nasal Cannula 4.00 07/14/16 20:00 97.7 82 18 121/61 95 07/14/16 19:43 Nasal Cannula 4.00 07/14/16 16:09 97.7 78 18 111/56 93 07/14/16 12:33 97.6 88 19 122/58 91 07/14/16 07/14/16 07/15/16 15:00 23:00 07:00 Intake Total 360 ml 240 ml 240 ml Output Total 750 ml 525 ml 1050 ml Balance -390 ml -285 ml -810 ml Intake Oral 360 ml 240 ml 240 ml Output Urine Total 750 ml 350 ml 1050 ml Chest Tube Drainage Total 175 ml # Bowel Movements 0 0 0 Result Diagram: 07/15/16 0702 07/15/16 0702 Imaging Last Impressions Chest X-Ray 07/13/16 0000 Signed Impressions: Service Date/Time: Wednesday, July 13, 2016 08:06 - CONCLUSION: Reduction in size of the right pleural effusion. Nitin Ling MD Chest CT 07/12/16 1747 Signed Impressions: Service Date/Time: Tuesday, July 12, 2016 18:11 - CONCLUSION: Enormous loculated right pleural effusion. Enlarged mediastinal lymph nodes. Paras Chang MD Chest Tube Insertion 07/12/16 0000 Signed Impressions: Service Date/Time: Tuesday, July 12, 2016 21:17 - CONCLUSION: Uncomplicated CT-guided thoracentesis. Paras Chang MD A/P Problem List: (1) Pleural effusion on right Status: Acute Plan: - Pt admitted with c/o productive cough and SOB x 2 weeks - Pt has a 40 yr smoking history - CT chest (07/12/16) showed enormous, loculated, right pleural effusion - Pt given one dose of rocephin and azithromycin in the ER (07/12/16) - Pt started on zosyn (07/12/16 - present) - Pt underwent right thoracentesis with placement of right chest tube - pleural fluid analysis shows the fluid to be exudate - pleural fluid pathology is pending - CXR (07/13/16) - right chest tube - decreased right pleural effusion with moderated loculated pleural effusion remaining - airspace consolidation at RML and RLL - pneumothorax Pt will go for repeat cxr today and tpa being considered if still loculations. He is on emperic abx. cytology pending. ngtd of cx's. will discuss with IR today and will likely need some additional consultants. (2) DM2 (diabetes mellitus, type 2) Status: Acute Plan: - diet controlled - last HgA1C 6.2 (04/08/16) (3) HTN (hypertension) Status: Chronic Plan: - stable - norvasc (4) Bipolar disease, chronic Status: Chronic Plan: - stable - depakote, seroquel (5) Hyperlipemia Status: Chronic Plan: - continue statin Problem Qualifiers (1) DM2 (diabetes mellitus, type 2): Qualified Code: E11.9 - Type 2 diabetes mellitus without complication, without long-term current use of insulin (2) HTN (hypertension): Qualified Code: I10 - Essential hypertension (3) Hyperlipemia: Qualified Code: E78.5 - Hyperlipidemia, unspecified hyperlipidemia type Mino Boateng MD Jul 15, 2016 09:25
--- NOTE | 2016-07-15 11:24 | RADRPT ---
EXAM DATE/TIME: 07/15/2016 09:56 [facility] COMPARISON: CHEST EXPIRATION ONLY, July 13, 2016, 8:06. INDICATIONS : Short of breath MEDICAL HISTORY : None. SURGICAL HISTORY : Right chest tube ENCOUNTER: Initial ACUITY: 3 days PAIN SCORE: 0/10 LOCATION: Bilateral chest FINDINGS: Right chest tube is in place. Loculated right pleural effusion has not changed. Parenchymal changes i n the right middle lower lung lauren have not changed. There is no pneumothorax for technique. The re st of the examination has not changed and is adenopathy within the mediastinum identified previously not changed. CONCLUSION: No appreciable change. Nitin Ling MD on July 15, 2016 at 11:21 Board Certified Radiologist. This report was verified electronically.
[2016-07-15] MEDS: QUEtiapine FUMARATE 100 MG TAB PO SCH (21:00)
[2016-07-16] VITALS (9 sets, daily range): BP systolic 122–130; BP diastolic 59–80; PULSE 80–97; RESP 16–20; TEMP 97.5–100.5; O2SAT 93–97
[2016-07-16] MEDS: ACETAMINOPHEN/HYDROcodone 325 MG/10 MG TAB PO PRN ×4 (02:24→20:52)
[2016-07-16] MEDS: PIPERACIL-TAZO 3.375 GM PREMIX 50 ML IV SCH ×4 (02:25→20:52)
[2016-07-16] MEDS: HYDROmorphone HCL PF 1 MG/ML VIAL IV PUSH PRN ×3 (04:40→18:07)
[2016-07-16] MEDS: DIVALPROEX DR 500 MG TABEC PO SCH (08:34)
[2016-07-16] MEDS: amLODIPine BESYLATE 5 MG TAB PO SCH (08:34)
[2016-07-16] MEDS: ATORVASTATIN 10 MG TAB PO SCH (08:34)
[2016-07-16] MEDS: FAMOTIDINE 20 MG TAB PO SCH ×2 (08:34→20:52)
[2016-07-16] MEDS: DOCUSATE SODIUM 100 MG CAP PO SCH ×2 (08:34→20:55)
[2016-07-16] MEDS: SODIUM CHLORIDE 0.9% FLUSH 10 ML FLUSH IV FLUSH SCH ×2 (09:56→20:56)
--- NOTE | 2016-07-16 10:04 | HHI.PR ---
Subjective Remarks doing about the same. brother presents Objective Vitals heart reg lung improved air entry right chest tube. drainage more yellow today and white drainage stopped. abd s/nt ext no edema Vital Signs Date Time Temp Pulse Resp B/P Pulse Ox O2 Delivery O2 Flow Rate FiO2 07/16/16 04:00 97.5 84 18 126/59 95 07/16/16 00:08 98.0 87 20 123/60 93 07/15/16 21:39 95 Nasal Cannula 4.00 07/15/16 20:30 Nasal Cannula 4.00 07/15/16 20:23 90 07/15/16 20:00 97.5 86 18 124/56 95 07/15/16 16:00 97.8 84 20 113/63 94 07/15/16 12:00 97.6 81 20 103/57 94 07/15/16 07/15/16 07/16/16 15:00 23:00 07:00 Intake Total 108 ml Output Total 200 ml 500 ml Balance 108 ml -200 ml -500 ml IV Total 108 ml Output Urine Total 200 ml 500 ml # Bowel Movements 1 Result Diagram: 07/15/16 0702 07/15/16 0702 Imaging Last Impressions Chest X-Ray 07/13/16 0000 Signed Impressions: Service Date/Time: Wednesday, July 13, 2016 08:06 - CONCLUSION: Reduction in size of the right pleural effusion. Nitin Ling MD Chest CT 07/12/16 1747 Signed Impressions: Service Date/Time: Tuesday, July 12, 2016 18:11 - CONCLUSION: Enormous loculated right pleural effusion. Enlarged mediastinal lymph nodes. Paras Chang MD Chest Tube Insertion 07/12/16 0000 Signed Impressions: Service Date/Time: Tuesday, July 12, 2016 21:17 - CONCLUSION: Uncomplicated CT-guided thoracentesis. Paras Chang MD A/P Problem List: (1) Pleural effusion on right Status: Acute Plan: - Pt admitted with c/o productive cough and SOB x 2 weeks - Pt has a 40 yr smoking history - CT chest (07/12/16) showed enormous, loculated, right pleural effusion - Has 2 family members with lung ca - Pt given one dose of rocephin and azithromycin in the ER (07/12/16) - Pt started on zosyn (07/12/16 - present) - Pt underwent right thoracentesis with placement of right chest tube - pleural fluid analysis shows the fluid to be exudate - pleural fluid pathology is pending - CXR (07/13/16) - right chest tube - decreased right pleural effusion with moderated loculated pleural effusion remaining - airspace consolidation at RML and RLL - pneumothorax discuss with IR. await cytology. repeat cxr. cont abx. (2) DM2 (diabetes mellitus, type 2) Status: Acute Plan: - diet controlled - last HgA1C 6.2 (04/08/16) (3) HTN (hypertension) Status: Chronic Plan: - stable - norvasc (4) Bipolar disease, chronic Status: Chronic Plan: - stable - depakote, seroquel (5) Hyperlipemia Status: Chronic Plan: - continue statin Problem Qualifiers (1) DM2 (diabetes mellitus, type 2): Qualified Code: E11.9 - Type 2 diabetes mellitus without complication, without long-term current use of insulin (2) HTN (hypertension): Qualified Code: I10 - Essential hypertension (3) Hyperlipemia: Qualified Code: E78.5 - Hyperlipidemia, unspecified hyperlipidemia type Mino Boateng MD Jul 16, 2016 10:04
--- NOTE | 2016-07-16 17:02 | RADRPT ---
EXAM DATE/TIME: 07/16/2016 16:35 [facility] COMPARISON: CHEST PA & LAT, July 15, 2016, 9:56. CT THORAX W/O CONTRAST, July 12, 2016, 18:11. INDICATIONS : Evaluate for right pleural effusion RADIATION DOSE: 6.87 CTDIvol (mGy) MEDICAL HISTORY : Cardiovascular disease. Hypertension. Hepatitis C. SURGICAL HISTORY : None. ENCOUNTER: Initial ACUITY: 1 day PAIN SCALE: 10/10 LOCATION: Right chest TECHNIQUE: Volumetric scanning of the chest was performed. Using automated exposure control and adjustment of t he mA and/or kV according to patient size, radiation dose was kept as low as reasonably achievable to obtain optimal diagnostic quality images. FINDINGS: LUNGS: Subsegmental area of consolidation in the right lower lung with air bronchograms involve portions of at least 2 segments. On the left side, there is a small area of consolidation in the posterior costo phrenic angle. PLEURAE: Chest drainage catheter present in the pleural space lower right chest. There is pleural effusion tr acking laterally in the right chest up to the apex. Pleural effusion in the posterior apex measures 3.8 cm in thickness. There is some scattered small flecks of gas within the pleural effusion as woul d be expected with indwelling catheter. No pleural effusion on the left side. MEDIASTINUM: Mediastinal adenopathy with the precarinal node measuring 2.6 cm and subcarinal node measuring 2.5 cm . AXILLAE: Within normal limits. No lymphadenopathy. MUSCULOSKELETAL: Within normal limits for patient age. CONCLUSION: 1. Moderate size right pleural effusion tracking up to the apex. There is a chest drainage catheter within the pleural space lower right chest. 2. Multisegmental areas of consolidation right lower lung and small area of consolidation in the left costophrenic angle. 3. Middle mediastinal adenopathy. Isidoro Leonard MD on July 16, 2016 at 16:56 Board Certified Radiologist. This report was verified electronically.
[2016-07-16] MEDS: QUEtiapine FUMARATE 100 MG TAB PO SCH (20:52)
[2016-07-17] VITALS (11 sets, daily range): BP systolic 115–126; BP diastolic 57–82; PULSE 78–101; RESP 18–22; TEMP 97.2–99.4; O2SAT 92–97
[2016-07-17] MEDS: PIPERACIL-TAZO 3.375 GM PREMIX 50 ML IV SCH ×4 (01:52→20:15)
[2016-07-17] MEDS: HYDROmorphone HCL PF 1 MG/ML VIAL IV PUSH PRN ×4 (01:56→20:17)
[2016-07-17] MEDS: ACETAMINOPHEN/HYDROcodone 325 MG/10 MG TAB PO PRN ×4 (04:58→23:19)
[2016-07-17 07:14] LABS: AUTOMATED NEUTROPHIL # 15.2 TH/MM3 (1.8-7.7); BASOPHIL # 0.1 TH/MM3 (0-0.2); BASOPHIL % 0.4 % (0.0-2.0); EOSINOPHIL # 0.5 TH/MM3 (0-0.4); EOSINOPHIL % 2.4 % (0.0-4.0); HEMATOCRIT 32.4 % (39.0-51.0); HEMO FLAGS DIFF FINAL; LYMPH % 10.8 % (9.0-44.0); LYMPHOCYTE # 2.1 TH/MM3 (1.0-4.8); MEAN CELL VOLUME 85.2 FL (80.0-100.0); MEAN CORPUSCULAR HEMOGLOBIN 27.7 PG (27.0-34.0); MEAN CORPUSCULAR HGB CONC 32.5 % (32.0-36.0); MONO % 7.6 % (0.0-8.0); NEUT % 78.8 % (16.0-70.0); PLATELET COUNT 493 TH/MM3 (150-450); RED CELL DISTRIBUTION WIDTH 15.9 % (11.6-17.2); WHITE BLOOD COUNT 19.2 TH/MM3 (4.0-11.0)
[2016-07-17 07:43] LABS: BICARBONATE 33.4 MEQ/L (21.0-32.0); POTASSIUM 3.6 MEQ/L (3.5-5.1)
[2016-07-17] MEDS: SODIUM CHLORIDE 0.9% FLUSH 10 ML FLUSH IV FLUSH SCH ×2 (08:02→20:21)
[2016-07-17] MEDS: DIVALPROEX DR 500 MG TABEC PO SCH (08:03)
[2016-07-17] MEDS: FAMOTIDINE 20 MG TAB PO SCH ×2 (08:03→20:20)
[2016-07-17] MEDS: DOCUSATE SODIUM 100 MG CAP PO SCH ×2 (08:03→20:20)
[2016-07-17] MEDS: ATORVASTATIN 10 MG TAB PO SCH (08:03)
[2016-07-17] MEDS: amLODIPine BESYLATE 5 MG TAB PO SCH (08:03)
--- NOTE | 2016-07-17 08:36 | HHI.PR ---
Subjective Remarks pt with pain over right chest with inspiration. Objective Vitals heart reg lung diminished gabriela right chest tube. abd s/nt ext no edema Vital Signs Date Time Temp Pulse Resp B/P Pulse Ox O2 Delivery O2 Flow Rate FiO2 07/17/16 05:36 98.1 91 18 123/57 96 07/17/16 01:09 99.4 97 18 126/82 97 07/16/16 21:42 Nasal Cannula 3.00 07/16/16 20:25 100.5 97 18 130/80 95 07/16/16 20:00 96 07/16/16 19:45 Nasal Cannula 4.00 07/16/16 17:52 98.7 80 16 130/63 97 07/16/16 12:09 98.1 81 17 125/66 95 07/16/16 10:10 95 Nasal Cannula 4.00 07/16/16 08:40 Nasal Cannula 4.00 07/16/16 07/16/16 07/17/16 15:00 23:00 07:00 Intake Total 466 ml 100 ml Output Total 800 ml 65 ml Balance -334 ml 35 ml Intake Oral 360 ml 100 ml IV Total 106 ml Output Urine Total 800 ml Chest Tube Drainage Total 65 ml # Bowel Movements 1 Result Diagram: 07/17/16 0607 07/17/16 0607 Imaging Last Impressions Chest X-Ray 07/13/16 0000 Signed Impressions: Service Date/Time: Wednesday, July 13, 2016 08:06 - CONCLUSION: Reduction in size of the right pleural effusion. Nitin Ling MD Chest CT 07/12/16 1747 Signed Impressions: Service Date/Time: Tuesday, July 12, 2016 18:11 - CONCLUSION: Enormous loculated right pleural effusion. Enlarged mediastinal lymph nodes. Paras Chang MD Chest Tube Insertion 07/12/16 0000 Signed Impressions: Service Date/Time: Tuesday, July 12, 2016 21:17 - CONCLUSION: Uncomplicated CT-guided thoracentesis. Paras Chang MD A/P Problem List: (1) Pleural effusion on right Status: Acute Plan: - Pt admitted with c/o productive cough and SOB x 2 weeks - Pt has a 40 yr smoking history - CT chest (07/12/16) showed enormous, loculated, right pleural effusion - Has 2 family members with lung ca - Pt given one dose of rocephin and azithromycin in the ER (07/12/16) - Pt started on zosyn (07/12/16 - present) - Pt underwent right thoracentesis with placement of right chest tube. The initial fluid was white and purelent in appearance. - pleural fluid analysis shows the fluid to be exudate - pleural fluid pathology is pending - CXR (07/13/16) - right chest tube - decreased right pleural effusion with moderated loculated pleural effusion remaining - airspace consolidation at RML and RLL - pneumothorax concern would be for parapneumonic effusion/empyema. malignancy in differential. no hx RA. discuss with IR again today. . await cytology.. cont abx. ADDENDUM: SPOKE TO DR FONG. HE THINKS WE SHOULD TRY TPA TODAY THROUGH THE CT. I WILL ASK PULMONARY TO FOLLOW ALSO. HE MAY NEED CTS CONSULT IF UNABLE TO GET ALL OF THIS LOCULATED EFFUSION OUT. ADDENDUM: I SPOKE TO DR FONG AGAIN...WE AGREED TO PROCEED WITH CTS CONSULTATION. TPA GIVEN. (2) DM2 (diabetes mellitus, type 2) Status: Acute Plan: - diet controlled - last HgA1C 6.2 (04/08/16) (3) HTN (hypertension) Status: Chronic Plan: - stable - norvasc (4) Bipolar disease, chronic Status: Chronic Plan: - stable - depakote, seroquel (5) Hyperlipemia Status: Chronic Plan: - continue statin Problem Qualifiers (1) DM2 (diabetes mellitus, type 2): Qualified Code: E11.9 - Type 2 diabetes mellitus without complication, without long-term current use of insulin (2) HTN (hypertension): Qualified Code: I10 - Essential hypertension (3) Hyperlipemia: Qualified Code: E78.5 - Hyperlipidemia, unspecified hyperlipidemia type Mino Boateng MD Jul 17, 2016 08:36
[2016-07-17] MEDS ORDERED: ALTEPLASE IV ONE (16:00)
[2016-07-17] MEDS ORDERED: SODIUM CHLORIDE 0.9% IV ONE (16:00)
[2016-07-17] MEDS: QUEtiapine FUMARATE 100 MG TAB PO SCH (20:20)
--- NOTE | 2016-07-17 20:27 | MB ---
cc: ALLYSSA OSORIO DATE OF CONSULTATION 07/17/[address] Mauricio Rdz REASON FOR CONSULTATION Pleural effusion. HISTORY OF PRESENT ILLNESS Mr. Cade is a pleasant 60-year-old male with bipolar disorder. The patient was taking Depakote and Seroquel which he stopped taking on his own about two weeks ago. He was not feeling well for about 2 weeks. He has cough, congestion in his chest, shortness of breath and right-sided chest pain. He has off and on fever and chills. No nausea or vomiting. Because his symptoms were persistent he decided to come to the hospital. He had a workup done. He had a CT scan of the chest done which shows enormous right pleural effusion and enlarged mediastinal lymph node. He had a CT-guided chest tube placed. Pleural fluid cytology is negative and the culture of the pleural fluid is negative. AFB stain was negative. Fungal stains are negative. He still has pleural effusion. Today he had TPA injected into the chest tube and thoracic surgery is consulted. He feels weak. He has mild shortness of breath. No nausea or vomiting. No fever or chills. PAST MEDICAL HISTORY Significant for: 1. History of bipolar disorder. 2. Diabetes mellitus. 3. Hypertension. 4. Chronic pain. 5. Obesity. MEDICATIONS He is currently takin. Colace. 2. Hydrocodone. 3. Dilaudid p.r.n. 4. Amlodipine 5 mg a day. 5. Depakote 1000 milligrams daily. 6. Lipitor 10 milligrams daily. 7. Seroquel 150 milligrams at night time. 8. Famotidine 20 milligrams daily. 9. Zosyn IV. 10. Temazepam as needed. ALLERGIES NO KNOWN DRUG ALLERGIES. SOCIAL HISTORY He was living with his male partner for the last 16 years. He got last year. He has a history of smoking which he quit. 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 FAMILY HISTORY He has three brothers, one sister. REVIEW OF SYSTEMS He might have lost some weight, he is not sure. No headache, dizziness. No nausea or vomiting. No stroke. No DVT or pulmonary embolism. PHYSICAL EXAMINATION GENERAL: Well-built, well-nourished, obese male mild short of breath. VITAL SIGNS: Blood pressure 121/59, heart rate 84, respiration 20, temperature 97.7. HEENT: Pupils are equal and reactive to light. Oral mucosa, nasal mucosa normal. NECK: Supple. JVP not raised. CHEST: Air entry equal bilaterally. He has rales and bronchial breath sound on the right side. He has right chest tube in place. CARDIOVASCULAR: S1-S2 normal. ABDOMEN: Soft and nondistended. Bowel sounds are present. EXTREMITIES: No edema. CENTRAL NERVOUS SYSTEM: He is alert and oriented times three. No deficit. LABORATORY DATA WBC count is 19.2, hemoglobin 10.5, hematocrit 32.4, MCV 85, platelet count 493. Sodium 137, potassium 3.6, chloride 97, CO2 34, BUN 5, creatinine 0.56. IMPRESSION 1. Large pleural effusion possible parapneumonic effusion, underlying malignancy is not ruled out. 2. Lung infiltrate and atelectasis. 3. Bipolar disorder. 4. Hypertension. 5. Diabetes mellitus. PLAN He has chest tube which is draining. He had a TPA treatment. Continue present antibiotic. Will check the final culture. Thoracic surgery is consulted for possible decortication. Further treatment will depend on the course in the hospital. Thank you Dr. Rdz for this consultation. MD CHERIE Toure/MANJU /7:35 PM /7:59 PM
[2016-07-18] VITALS (9 sets, daily range): BP systolic 112–138; BP diastolic 56–88; PULSE 75–103; RESP 18–22; TEMP 97.8–98.7; O2SAT 93–97
[2016-07-18] MEDS: HYDROmorphone HCL PF 1 MG/ML VIAL IV PUSH PRN ×4 (02:24→20:24)
[2016-07-18] MEDS: PIPERACIL-TAZO 3.375 GM PREMIX 50 ML IV SCH ×4 (02:25→20:49)
[2016-07-18] MEDS: ACETAMINOPHEN/HYDROcodone 325 MG/10 MG TAB PO PRN ×3 (05:30→17:39)
[2016-07-18] MEDS: ATORVASTATIN 10 MG TAB PO SCH (08:20)
[2016-07-18] MEDS: amLODIPine BESYLATE 5 MG TAB PO SCH (08:20)
[2016-07-18] MEDS: DIVALPROEX DR 500 MG TABEC PO SCH (08:20)
[2016-07-18] MEDS: DOCUSATE SODIUM 100 MG CAP PO SCH ×2 (08:20→20:21)
[2016-07-18] MEDS: FAMOTIDINE 20 MG TAB PO SCH ×2 (08:20→20:22)
[2016-07-18] MEDS: SODIUM CHLORIDE 0.9% FLUSH 10 ML FLUSH IV FLUSH SCH ×2 (08:21→20:21)
--- NOTE | 2016-07-18 10:25 | HHI.PR ---
Subjective Remarks still about the same. Objective Vitals heart reg lung diminished bases right chest tube..some thick purelent drainage at times..other times more yellow ext no edema Vital Signs Date Time Temp Pulse Resp B/P Pulse Ox O2 Delivery O2 Flow Rate FiO2 07/18/16 08:40 Nasal Cannula 4.00 07/18/16 08:40 75 07/18/16 08:00 98.0 77 20 112/56 95 07/18/16 04:30 98.0 84 18 122/56 93 07/17/16 23:52 98.8 96 18 126/58 93 07/17/16 22:02 98.0 101 18 115/58 94 07/17/16 20:00 89 07/17/16 19:30 Nasal Cannula 4.00 07/17/16 17:36 92 Nasal Cannula 4.00 07/17/16 16:00 97.7 84 20 121/59 92 07/17/16 12:00 97.8 83 20 124/57 92 07/17/16 07/17/16 07/18/16 15:00 23:00 07:00 Intake Total 480 ml 840 ml 360 ml Output Total 500 ml 0 ml 840 ml Balance -20 ml 840 ml -480 ml Intake Oral 480 ml 840 ml 360 ml Output Urine Total 500 ml 0 ml 800 ml Chest Tube Drainage Total 40 ml # Voids 1 # Bowel Movements 1 0 0 Result Diagram: 07/17/16 0607 07/17/16 0607 Imaging Last Impressions Chest X-Ray 07/13/16 0000 Signed Impressions: Service Date/Time: Wednesday, July 13, 2016 08:06 - CONCLUSION: Reduction in size of the right pleural effusion. Nitin Ling MD Chest CT 07/12/16 1747 Signed Impressions: Service Date/Time: Tuesday, July 12, 2016 18:11 - CONCLUSION: Enormous loculated right pleural effusion. Enlarged mediastinal lymph nodes. Paras Chang MD Chest Tube Insertion 07/12/16 0000 Signed Impressions: Service Date/Time: Tuesday, July 12, 2016 21:17 - CONCLUSION: Uncomplicated CT-guided thoracentesis. Paras Chang MD A/P Problem List: (1) Pleural effusion on right Status: Acute Plan: - Pt admitted with c/o productive cough and SOB x 2 weeks - Pt has a 40 yr smoking history - CT chest (07/12/16) showed enormous, loculated, right pleural effusion - Has 2 family members with lung ca - Pt given one dose of rocephin and azithromycin in the ER (07/12/16) - Pt started on zosyn (07/12/16 - present) - Pt underwent right thoracentesis with placement of right chest tube. The initial fluid was white and purelent in appearance. - pleural fluid analysis shows the fluid to be exudate - pleural fluid pathology is pending - CXR (07/13/16) - right chest tube - decreased right pleural effusion with moderated loculated pleural effusion remaining - airspace consolidation at RML and RLL - pneumothorax concern would be for parapneumonic effusion/empyema. malignancy in differential. no hx RA. Discussed with IR/CTS. consulted also Dr Bro pulmonary. I think this pt will need a VATS with undiagnosed exudative effusion and no clear answer from the analysis so far with cx's negative and cytology negative. Await CTS eval. TPA did seem to increase output. (2) DM2 (diabetes mellitus, type 2) Status: Acute Plan: - diet controlled - last HgA1C 6.2 (04/08/16) (3) HTN (hypertension) Status: Chronic Plan: - stable - norvasc (4) Bipolar disease, chronic Status: Chronic Plan: - stable - depakote, seroquel (5) Hyperlipemia Status: Chronic Plan: - continue statin Problem Qualifiers (1) DM2 (diabetes mellitus, type 2): Qualified Code: E11.9 - Type 2 diabetes mellitus without complication, without long-term current use of insulin (2) HTN (hypertension): Qualified Code: I10 - Essential hypertension (3) Hyperlipemia: Qualified Code: E78.5 - Hyperlipidemia, unspecified hyperlipidemia type Mino Boateng MD Jul 18, 2016 10:25
--- NOTE | 2016-07-18 20:13 | HHI.PR ---
Subjective Remarks 60 YOWM with Bipolar disorder,Pl effusion, s/p TPA Draining better after TPA Mild chest discomfort Objective Vital Signs Vital Signs Date Time Temp Pulse Resp B/P Pulse Ox O2 Delivery O2 Flow Rate FiO2 07/18/16 16:00 97.9 87 18 126/71 97 07/18/16 12:00 97.8 82 18 124/59 95 07/18/16 08:40 Nasal Cannula 4.00 07/18/16 08:40 75 07/18/16 08:00 98.0 77 20 112/56 95 07/18/16 04:30 98.0 84 18 122/56 93 07/17/16 23:52 98.8 96 18 126/58 93 07/17/16 22:02 98.0 101 18 115/58 94 I/O 07/17/16 07/17/16 07/17/16 07/18/16 07/18/16 07/18/16 07:00 15:00 23:00 07:00 15:00 23:00 Intake Total 100 ml 480 ml 840 ml 360 ml 960 ml Output Total 65 ml 500 ml 0 ml 840 ml 1200 ml Balance 35 ml -20 ml 840 ml -480 ml -240 ml Intake Oral 100 ml 480 ml 840 ml 360 ml 960 ml Output Urine Total 500 ml 0 ml 800 ml 1200 ml Chest Tube Drainage Total 65 ml 40 ml # Voids 1 # Bowel Movements 1 0 0 1 Result Diagram: 07/17/16 0607 07/17/16 0607 Objective Remarks GENERAL: WBWN WM mild discomfort SKIN: Warm and dry. HEAD: Normocephalic. EYES: No scleral icterus. No injection or drainage. NECK: Supple, trachea midline. No JVD or lymphadenopathy. CARDIOVASCULAR: Regular rate and rhythm without murmurs, gallops, or rubs. RESPIRATORY: Breath sounds equal bilaterally. No accessory muscle use. Right chest tube draining GASTROINTESTINAL: Abdomen soft, non-tender, nondistended. MUSCULOSKELETAL: No cyanosis, or edema. BACK: Nontender without obvious deformity. No CVA tenderness. A/P Assessment and Plan Right pl effusion, s/p chest tube and TPA Atelactesis Lung infilt DM Bipolar disorder PLAN: Cont Abx Chest tube to Suction CTS consulted Monitor BS. Agus Bro MD Jul 18, 2016 20:13
[2016-07-18] MEDS: QUEtiapine FUMARATE 100 MG TAB PO SCH (20:22)
[2016-07-19] VITALS (7 sets, daily range): BP systolic 116–129; BP diastolic 58–75; PULSE 79–94; RESP 18–20; TEMP 97.4–98.4; O2SAT 92–94
[2016-07-19] MEDS: ACETAMINOPHEN/HYDROcodone 325 MG/10 MG TAB PO PRN ×4 (01:12→20:17)
[2016-07-19] MEDS: PIPERACIL-TAZO 3.375 GM PREMIX 50 ML IV SCH ×4 (01:13→20:16)
[2016-07-19] MEDS: HYDROmorphone HCL PF 1 MG/ML VIAL IV PUSH PRN ×3 (05:34→17:39)
[2016-07-19 07:20] LABS: AUTOMATED NEUTROPHIL # 15.5 TH/MM3 (1.8-7.7); BASOPHIL # 0.1 TH/MM3 (0-0.2); BASOPHIL % 0.6 % (0.0-2.0); EOSINOPHIL # 0.3 TH/MM3 (0-0.4); EOSINOPHIL % 1.4 % (0.0-4.0); HEMATOCRIT 31.7 % (39.0-51.0); HEMO FLAGS DIFF FINAL; LYMPH % 8.3 % (9.0-44.0); LYMPHOCYTE # 1.6 TH/MM3 (1.0-4.8); MEAN CELL VOLUME 84.7 FL (80.0-100.0); MEAN CORPUSCULAR HEMOGLOBIN 27.7 PG (27.0-34.0); MEAN CORPUSCULAR HGB CONC 32.7 % (32.0-36.0); MONO % 6.6 % (0.0-8.0); NEUT % 83.1 % (16.0-70.0); PLATELET COUNT 344 TH/MM3 (150-450); RED BLOOD COUNT 3.74 MIL/MM3 (4.50-5.90); WHITE BLOOD COUNT 18.7 TH/MM3 (4.0-11.0)
--- NOTE | 2016-07-19 07:43 | MB ---
cc: KIM ELDER MD DATE OF CONSULTATION 07/18/16 DATE OF [address] Sidney Steiner. HISTORY OF PRESENT ILLNESS A pleasant 60-year-old male with hypertension, diabetes mellitus complaining of cough, shortness of breath for a couple of weeks, also some rib pain that has been going on for about two weeks. He also complained of having some chills and night sweats. He had a chest x-ray at [facility] that showed a pleural effusion prompting further referral to the [place] emergency department. CT scan on 07/12 showed a large loculated right effusion, also some mediastinal lymphadenopathy. The patient underwent thoracentesis with placement of right chest tube. No growth in the pleural fluid from 07/12, no AFB, no fungal elements to date. He also had blood cultures which were negative. Nasal swab was negative for influenza A and B. He was found to have a white cell count of 30,000, lactic acid level of 1.6. Pleural fluids showed high WBCs of 64,000, glucose was less than one, more indicative of empyema. Chest tube was placed on the , 2000 mL of cloudy yellow fluid was removed. The patient had a repeat CT scan on the showing moderate size right pleural effusion tracking up the apex, consolidation in the right lower lobe, some middle mediastinal adenopathy. He also had TPA treatment and is also on antibiotics. Repeat CT chest for the a.m. with IV contrast to see if there is any improvement in his empyema, however, if not this patient will need to undergo right video-assisted thoracoscopy, thoracotomy, possible drainage of the pleural effusion and decortication on Friday. PAST MEDICAL HISTORY 1. Hypertension, 2. Diabetes mellitus, 3. Hyperlipidemia, 4. Obesity, 5. Bipolar disorder, 6. Chronic lumbar pain 7. Vitamin D deficiency. PAST SURGICAL HISTORY No past surgical history other than the chest tube placement. ALLERGIES No known allergies MEDICATIONS Home meds 1. Viagra 2. Ventolin 3. Crestor 4. Zantac. 5. Seroquel. 6. [place]. 7. Depakote. 8. Amlodipine. FAMILY HISTORY Noncontributory. SOCIAL HISTORY On disability. Lives with domestic partner. Quit smoking four years ago. Smoked for 40 years. Rare alcohol. No illicit drugs. REVIEW OF SYSTEMS As above in HPI. Other 12 systems unremarkable. PHYSICAL EXAMINATION VITAL SIGNS: Blood pressure 124/50, heart rate is 82, temperature max 97.8, respiratory rate of 18. GENERAL: Patient sitting up on the side of the bed awake, alert in no acute distress. HEENT: Head is normocephalic, atraumatic. Pupils equal and reactive. Oral mucosa pink, moist. NECK: Supple. No JVD. Heart sounds S1-S2, regular rate and rhythm. He has some very coarse high pitched sound on the right lower lobe. Chest tube to wall suction with some purulent drainage. No air leak. ABDOMEN: Soft, flat, nontender. No masses or organomegaly. EXTREMITIES: No cyanosis, clubbing or edema. LABORATORY DATA Hemoglobin 10.5, hematocrit 32, white cell count 19, platelet count of 493. Sodium 136, potassium 3.6, BUN five, creatinine 0.56, INR 1.3 and pleural fluid as above. Micro as above. IMPRESSION This is a very pleasant 60-year-old male with right loculated pleural effusion status post chest tube placement and also TPA placement to improve the drainage. We will recheck CT chest with IV contrast in the a.m. to reevaluate improvement of this empyema loculated effusion. If no improvement, the patient will need to undergo right video-assisted thoracoscopy, possible thoracotomy, drainage of pleural effusion and decortication on Friday. Dictated by ANKUSH Hurtado Kim FREY /4:15 PM /7:35 AM
[2016-07-19] MEDS ORDERED: IOHEXOL 350 MG/ML 10 ML VIAL (for RAD DIAG) IV ONE (08:33)
--- NOTE | 2016-07-19 08:48 | RADRPT ---
EXAM DATE/TIME: 07/19/2016 08:28 [place] COMPARISON: CT THORAX W/O CONTRAST, July 16, 2016, 16:35. INDICATIONS : Re-evaluate right pleural effusion. IV CONTRAST: 66 cc Omnipaque 350 (iohexol) IV RADIATION DOSE: 6.84 CTDIvol (mGy) MEDICAL HISTORY : Cerebrovascular disease. Hypertension. Hepatitis C. SURGICAL HISTORY : None. ENCOUNTER: Subsequent ACUITY: 1 week PAIN SCALE: 2/10 LOCATION: chest TECHNIQUE: Volumetric scanning of the chest was performed. Using automated exposure control and adjustment of t he mA and/or kV according to patient size, radiation dose was kept as low as reasonably achievable to obtain optimal diagnostic quality images. FINDINGS: Mild left lung base atelectasis and/or infiltrate is seen. Chest tube is present on the right si de. Tiny right pleural effusion is present overall reduced in size since the prior examination. Part of it appears to be loculated. There is dense consolidationin appearance in right lower lobe. Multipl e pathological lymph nodes are present within the superior mediastinum right paratracheal area and th e subcarinal area the largest one measures 3.4 cm in size not significantly changed. No definite pneu mothorax is seen for technique. CONCLUSION: 1. Reduction in size of the right pleural effusion with residual pleural effusion remaining part of i t appears to be loculated. 2. Right lung base consolidation and slight left lung base atelectasis and/or infiltrate. 3. No significant change in pathological adenopathy within the mediastinum. Nitin Ling MD on July 19, 2016 at 8:42 Board Certified Radiologist. This report was verified electronically.
--- NOTE | 2016-07-19 09:18 | HHI.PR ---
Subjective Remarks still feels the same Objective Vitals heart reg lung diminished bs right base abd s/nt ext no edema Vital Signs Date Time Temp Pulse Resp B/P Pulse Ox O2 Delivery O2 Flow Rate FiO2 07/19/16 08:00 98.0 89 18 116/58 92 07/19/16 05:22 98.4 94 18 122/59 94 07/18/16 23:45 98.7 98 18 128/64 94 07/18/16 21:39 97 Nasal Cannula 4.00 07/18/16 21:30 98.4 86 18 125/63 93 07/18/16 20:00 Nasal Cannula 3.00 07/18/16 20:00 96 07/18/16 16:00 97.9 87 18 126/71 97 07/18/16 12:00 97.8 82 18 124/59 95 07/18/16 07/18/16 07/19/16 15:00 23:00 07:00 Intake Total 960 ml 480 ml 0 ml Output Total 1200 ml 500 ml 1070 ml Balance -240 ml -20 ml -1070 ml Intake Oral 960 ml 480 ml 0 ml Output Urine Total 1200 ml 500 ml 950 ml Chest Tube Drainage Total 120 ml # Bowel Movements 1 0 0 Result Diagram: 07/19/16 0644 07/17/16 0607 Imaging Last Impressions Chest X-Ray 07/13/16 0000 Signed Impressions: Service Date/Time: Wednesday, July 13, 2016 08:06 - CONCLUSION: Reduction in size of the right pleural effusion. Nitin Ling MD Chest CT 07/12/16 1747 Signed Impressions: Service Date/Time: Tuesday, July 12, 2016 18:11 - CONCLUSION: Enormous loculated right pleural effusion. Enlarged mediastinal lymph nodes. Paras Chang MD Chest Tube Insertion 07/12/16 0000 Signed Impressions: Service Date/Time: Tuesday, July 12, 2016 21:17 - CONCLUSION: Uncomplicated CT-guided thoracentesis. Paras Chang MD A/P Problem List: (1) Pleural effusion on right Status: Acute Plan: - Pt admitted with c/o productive cough and SOB x 2 weeks - Pt has a 40 yr smoking history - CT chest (07/12/16) showed enormous, loculated, right pleural effusion - Has 2 family members with lung ca - Pt given one dose of rocephin and azithromycin in the ER (07/12/16) - Pt started on zosyn (07/12/16 - present) - Pt underwent right thoracentesis with placement of right chest tube. The initial fluid was white and purelent in appearance. - pleural fluid analysis shows the fluid to be exudate - pleural fluid pathology is pending - CXR (07/13/16) - right chest tube - decreased right pleural effusion with moderated loculated pleural effusion remaining - airspace consolidation at RML and RLL - pneumothorax concern would be for parapneumonic effusion/empyema. malignancy in differential. no hx RA. Discussed with IR/CTS. consulted also Dr Bro pulmonary. I think this pt will need a VATS or thoracotomy with undiagnosed exudative effusion and no clear answer from the analysis so far with cx's negative and cytology negative. TPA did seem to increase output. Await CTS decisions. (2) DM2 (diabetes mellitus, type 2) Status: Acute Plan: - diet controlled - last HgA1C 6.2 (04/08/16) (3) HTN (hypertension) Status: Chronic Plan: - stable - norvasc (4) Bipolar disease, chronic Status: Chronic Plan: - stable - depakote, seroquel (5) Hyperlipemia Status: Chronic Plan: - continue statin Problem Qualifiers (1) DM2 (diabetes mellitus, type 2): Qualified Code: E11.9 - Type 2 diabetes mellitus without complication, without long-term current use of insulin (2) HTN (hypertension): Qualified Code: I10 - Essential hypertension (3) Hyperlipemia: Qualified Code: E78.5 - Hyperlipidemia, unspecified hyperlipidemia type Mino Boateng MD Jul 19, 2016 09:18
[2016-07-19] MEDS: DIVALPROEX DR 500 MG TABEC PO SCH (09:44)
[2016-07-19] MEDS: FAMOTIDINE 20 MG TAB PO SCH ×2 (09:44→20:17)
[2016-07-19] MEDS: amLODIPine BESYLATE 5 MG TAB PO SCH (09:44)
[2016-07-19] MEDS: ATORVASTATIN 10 MG TAB PO SCH (09:44)
[2016-07-19] MEDS: DOCUSATE SODIUM 100 MG CAP PO SCH ×2 (09:44→20:16)
[2016-07-19] MEDS: SODIUM CHLORIDE 0.9% FLUSH 10 ML FLUSH IV FLUSH SCH ×3 (09:46→20:17)
[2016-07-19] MEDS ORDERED: CEFAZOLIN INJ 500 MG in SODIUM CHLORIDE 0.9% IRR BTL 500 ML IRRIGATION SCH (15:00)
[2016-07-19] MEDS ORDERED: CHLORHEXIDINE GLUCONATE 4% SOLN 120 ML BTL TOPICAL SCH (15:00)
[2016-07-19] MEDS ORDERED: ceFAZolin 2 GM PREMIX 50 ML IV SCH (15:00)
--- NOTE | 2016-07-19 15:09 | PD.CAR.PN ---
CVT Progress Note Subjective/Hospital Course: A pleasant 60-year-old male complaining ofcough, shortness of breath for a couple of weeks, also some rib pain that has been going on for about two weeks. He also complained of having some chills and night sweats. He had a chest x-ray at [facility] that showed a pleural effusion prompting further referral to the [place] emergency department. CT scan on 07/12 showed a large loculated right effusion, also some mediastinal lymphadenopathy. The patient underwent thoracentesis with placement of right chest tube. No growth in the pleural fluid from 07/12, no AFB, no fungal elements to date. He also had blood cultures which were negative. Nasal swab was negative for influenza A and B. He was found to have a white cell count of 30,000, lactic acid level of 1.6. Pleural fluids showed high WBCs of 64,000, glucose was less than one, more indicative of empyema. Chest tube was placed on the , 2000 mL of cloudy yellow fluid was removed. The patient had a repeat CT scan on the showing moderate size right pleural effusion tracking up the apex, consolidation in the right lower lobe, some middle mediastinal adenopathy. He also had TPA treatment and is also on antibiotics. Repeat CT chest reduction in size of right pleural effusion with residula effusion remaining , part which appears loculated pt is now scheduled for right video-assisted thoracoscopy, thoracotomy, possible drainage of the pleural effusion and decortication on Friday. PAST MEDICAL HISTORY 1. Hypertension, 2. Diabetes mellitus, 3. Hyperlipidemia, 4. Obesity, 5. Bipolar disorder, 6. Chronic lumbar pain 7. Vitamin D deficiency. Objective: GENERAL: SKIN: Warm and dry. HEAD: Normocephalic. EYES: No scleral icterus. No injection or drainage. NECK: Supple, trachea midline. No JVD or lymphadenopathy. CARDIOVASCULAR: Regular rate and rhythm without murmurs, gallops, or rubs. RESPIRATORY: Breath sounds equal bilaterally. No accessory muscle use. chest tube purulent drainage, no air leak , very coarse distant breath sounds on right GASTROINTESTINAL: Abdomen soft, non-tender, nondistended. MUSCULOSKELETAL: No cyanosis, or edema. BACK: Nontender without obvious deformity. No CVA tenderness. Vital Signs Date Time Temp Pulse Resp B/P Pulse Ox O2 Delivery O2 Flow Rate FiO2 07/19/16 12:00 97.4 79 18 129/61 93 07/19/16 09:30 Nasal Cannula 3.00 07/19/16 09:23 94 Nasal Cannula 4.00 07/19/16 08:10 82 07/19/16 08:00 98.0 89 18 116/58 92 07/19/16 05:22 98.4 94 18 122/59 94 07/18/16 23:45 98.7 98 18 128/64 94 07/18/16 21:39 97 Nasal Cannula 4.00 07/18/16 21:30 98.4 86 18 125/63 93 07/18/16 20:00 Nasal Cannula 3.00 07/18/16 20:00 96 07/18/16 16:00 97.9 87 18 126/71 97 Labs: Laboratory Tests Test 07/19/16 06:44 White Blood Count 18.7 TH/MM3 (4.0-11.0) Red Blood Count 3.74 MIL/MM3 (4.50-5.90) Hemoglobin 10.4 GM/DL (13.0-17.0) Hematocrit 31.7 % (39.0-51.0) Mean Corpuscular Volume 84.7 FL (80.0-100.0) Mean Corpuscular Hemoglobin 27.7 PG (27.0-34.0) Mean Corpuscular Hemoglobin 32.7 % Concent (32.0-36.0) Red Cell Distribution Width 16.0 % (11.6-17.2) Platelet Count 344 TH/MM3 (150-450) Mean Platelet Volume 9.2 FL (7.0-11.0) Neutrophils (%) (Auto) 83.1 % (16.0-70.0) Lymphocytes (%) (Auto) 8.3 % (9.0-44.0) Monocytes (%) (Auto) 6.6 % (0.0-8.0) Eosinophils (%) (Auto) 1.4 % (0.0-4.0) Basophils (%) (Auto) 0.6 % (0.0-2.0) Neutrophils # (Auto) 15.5 TH/MM3 (1.8-7.7) Lymphocytes # (Auto) 1.6 TH/MM3 (1.0-4.8) Monocytes # (Auto) 1.2 TH/MM3 (0-0.9) Eosinophils # (Auto) 0.3 TH/MM3 (0-0.4) Basophils # (Auto) 0.1 TH/MM3 (0-0.2) CBC Comment DIFF FINAL Differential Comment Result Diagram: 07/19/16 0644 07/17/16 0607 (1) Pleural effusion on right Plan: right video-assisted thoracoscopy, thoracotomy, possible drainage of the pleural effusion and decortication on Friday. (2) Pneumonia (3) Bipolar disease, chronic (4) DM2 (diabetes mellitus, type 2) (5) Hyperlipemia (6) HTN (hypertension) Problem Qualifiers (1) Pneumonia: Qualified Code: J18.9 - Pneumonia of right lung due to infectious organism, unspecified part of lung (2) DM2 (diabetes mellitus, type 2): Qualified Code: E11.9 - Type 2 diabetes mellitus without complication, without long-term current use of insulin (3) Hyperlipemia: Qualified Code: E78.5 - Hyperlipidemia, unspecified hyperlipidemia type (4) HTN (hypertension): Qualified Code: I10 - Essential hypertension Hyacinth Ha Jul 19, 2016 15:09
[2016-07-19 16:42] LABS: BLOOD, URINE NEG (NEG); COMMENT (UR) CULT NOT INDICATED; CULTURE IF INDICATED CULT NOT INDICATED; GLUCOSE,URINE NEG (NEG); KETONE, URINE NEG (NEG); NITRITE,URINE NEG (NEG); URINE COLOR LIGHT-YELLOW (YELLW/STRAW)
--- NOTE | 2016-07-19 18:59 | HHI.PR ---
Subjective Remarks 60 YOWM with Bipolar disorder,Pl effusion, s/p TPA Draining better after TPA Mild chest discomfort CTS evaluated pt Objective Vital Signs Vital Signs Date Time Temp Pulse Resp B/P Pulse Ox O2 Delivery O2 Flow Rate FiO2 07/19/16 16:00 98.0 82 18 118/60 94 07/19/16 12:00 97.4 79 18 129/61 93 07/19/16 09:30 Nasal Cannula 3.00 07/19/16 09:23 94 Nasal Cannula 4.00 07/19/16 08:10 82 07/19/16 08:00 98.0 89 18 116/58 92 07/19/16 05:22 98.4 94 18 122/59 94 07/18/16 23:45 98.7 98 18 128/64 94 07/18/16 21:39 97 Nasal Cannula 4.00 07/18/16 21:30 98.4 86 18 125/63 93 07/18/16 20:00 Nasal Cannula 3.00 07/18/16 20:00 96 I/O 07/18/16 07/18/16 07/18/16 07/19/16 07/19/16 07/19/16 07:00 15:00 23:00 07:00 15:00 23:00 Intake Total 360 ml 960 ml 480 ml 0 ml 1012 ml Output Total 840 ml 1200 ml 500 ml 1070 ml 1535 ml Balance -480 ml -240 ml -20 ml -1070 ml -523 ml Intake Oral 360 ml 960 ml 480 ml 0 ml 960 ml IV Total 52 ml Output Urine Total 800 ml 1200 ml 500 ml 950 ml 1475 ml Chest Tube Drainage Total 40 ml 120 ml 60 ml # Bowel Movements 0 1 0 0 Result Diagram: 07/19/16 0644 07/17/16 0607 Objective Remarks GENERAL: WBWN WM mild discomfort SKIN: Warm and dry. HEAD: Normocephalic. EYES: No scleral icterus. No injection or drainage. NECK: Supple, trachea midline. No JVD or lymphadenopathy. CARDIOVASCULAR: Regular rate and rhythm without murmurs, gallops, or rubs. RESPIRATORY: Breath sounds equal bilaterally. No accessory muscle use. Right chest tube draining GASTROINTESTINAL: Abdomen soft, non-tender, nondistended. MUSCULOSKELETAL: No cyanosis, or edema. BACK: Nontender without obvious deformity. No CVA tenderness. A/P Assessment and Plan Right pl effusion, s/p chest tube and TPA Atelactesis Lung infilt DM Bipolar disorder PLAN: Cont Abx Chest tube to Suction CTS evaluated pt, angy for decortication for Friday Monitor BS. Agus Bro MD Jul 19, 2016 18:59
[2016-07-19] MEDS: QUEtiapine FUMARATE 100 MG TAB PO SCH (20:17)
[2016-07-20] VITALS (9 sets, daily range): BP systolic 112–125; BP diastolic 58–63; PULSE 79–96; RESP 18–20; TEMP 97.9–99; O2SAT 92–97
[2016-07-20] MEDS: HYDROmorphone HCL PF 1 MG/ML VIAL IV PUSH PRN ×4 (01:28→21:07)
[2016-07-20] MEDS: PIPERACIL-TAZO 3.375 GM PREMIX 50 ML IV SCH ×4 (01:29→20:50)
[2016-07-20] MEDS: ACETAMINOPHEN/HYDROcodone 325 MG/10 MG TAB PO PRN ×4 (05:45→23:44)
[2016-07-20] MEDS: SODIUM CHLORIDE 0.9% FLUSH 10 ML FLUSH IV FLUSH SCH ×4 (09:00→20:51)
[2016-07-20] MEDS: DOCUSATE SODIUM 100 MG CAP PO SCH ×2 (09:14→20:51)
[2016-07-20] MEDS: FAMOTIDINE 20 MG TAB PO SCH ×2 (09:14→20:51)
[2016-07-20] MEDS: DIVALPROEX DR 500 MG TABEC PO SCH (09:14)
[2016-07-20] MEDS: amLODIPine BESYLATE 5 MG TAB PO SCH (09:14)
[2016-07-20] MEDS: ATORVASTATIN 10 MG TAB PO SCH (09:15)
--- NOTE | 2016-07-20 09:42 | HHI.PR ---
Subjective Remarks feels about the same ...weak. Objective Vitals heart reg lung diiminished right lung abd s/nt ext no edema right chest tube. Vital Signs Date Time Temp Pulse Resp B/P Pulse Ox O2 Delivery O2 Flow Rate FiO2 07/20/16 08:00 97.9 84 18 121/61 93 07/20/16 04:00 99.0 88 20 112/58 92 07/20/16 00:00 98.6 84 20 125/61 93 07/19/16 20:00 87 07/19/16 20:00 98.0 91 20 125/75 93 07/19/16 20:00 Nasal Cannula 3.00 07/19/16 16:00 98.0 82 18 118/60 94 07/19/16 12:00 97.4 79 18 129/61 93 07/19/16 07/19/16 07/20/16 15:00 23:00 07:00 Intake Total 1012 ml 1080 ml 1200 ml Output Total 1535 ml 395 ml 495 ml Balance -523 ml 685 ml 705 ml Intake Oral 960 ml 1080 ml 1200 ml IV Total 52 ml Output Urine Total 1475 ml 325 ml 475 ml Chest Tube Drainage Total 60 ml 70 ml 20 ml # Bowel Movements 1 Result Diagram: 07/19/16 0644 07/17/16 0607 Imaging Last Impressions Chest X-Ray 07/13/16 0000 Signed Impressions: Service Date/Time: Wednesday, July 13, 2016 08:06 - CONCLUSION: Reduction in size of the right pleural effusion. Nitin Ling MD Chest CT 07/12/16 1747 Signed Impressions: Service Date/Time: Tuesday, July 12, 2016 18:11 - CONCLUSION: Enormous loculated right pleural effusion. Enlarged mediastinal lymph nodes. Paras Chang MD Chest Tube Insertion 07/12/16 0000 Signed Impressions: Service Date/Time: Tuesday, July 12, 2016 21:17 - CONCLUSION: Uncomplicated CT-guided thoracentesis. Paras Chang MD A/P Problem List: (1) Pleural effusion on right Status: Acute Plan: - Pt admitted with c/o productive cough and SOB x 2 weeks - Pt has a 40 yr smoking history - CT chest (07/12/16) showed enormous, loculated, right pleural effusion - Has 2 family members with lung ca - Pt given one dose of rocephin and azithromycin in the ER (07/12/16) - Pt started on zosyn (07/12/16 - present) - Pt underwent right thoracentesis with placement of right chest tube. The initial fluid was white and purelent in appearance. - pleural fluid analysis shows the fluid to be exudate - pleural fluid pathology is pending - CXR (07/13/16) - right chest tube - decreased right pleural effusion with moderated loculated pleural effusion remaining - airspace consolidation at RML and RLL - pneumothorax concern would be for parapneumonic effusion/empyema. malignancy in differential. no hx RA. Discussed with IR/CTS. consulted also Dr Bro pulmonary. I think this pt will need a VATS or thoracotomy with undiagnosed exudative effusion and no clear answer from the analysis so far with cx's negative and cytology negative. TPA did seem to increase output. recorded 150cc more of output. Surgery planned for Friday... (2) DM2 (diabetes mellitus, type 2) Status: Acute Plan: - diet controlled - last HgA1C 6.2 (04/08/16) (3) HTN (hypertension) Status: Chronic Plan: - stable - norvasc (4) Bipolar disease, chronic Status: Chronic Plan: - stable - depakote, seroquel (5) Hyperlipemia Status: Chronic Plan: - continue statin Problem Qualifiers (1) DM2 (diabetes mellitus, type 2): Qualified Code: E11.9 - Type 2 diabetes mellitus without complication, without long-term current use of insulin (2) HTN (hypertension): Qualified Code: I10 - Essential hypertension (3) Hyperlipemia: Qualified Code: E78.5 - Hyperlipidemia, unspecified hyperlipidemia type Mino Boateng MD Jul 20, 2016 09:42
[2016-07-20] MEDS: QUEtiapine FUMARATE 100 MG TAB PO SCH (20:51)
[2016-07-21] VITALS (10 sets, daily range): BP systolic 113–131; BP diastolic 58–62; PULSE 79–97; RESP 16–19; TEMP 97.5–98.6; O2SAT 94–95
[2016-07-21] MEDS: PIPERACIL-TAZO 3.375 GM PREMIX 50 ML IV SCH ×4 (01:55→21:29)
[2016-07-21] MEDS: HYDROmorphone HCL PF 1 MG/ML VIAL IV PUSH PRN ×4 (03:07→21:30)
[2016-07-21] MEDS: ACETAMINOPHEN/HYDROcodone 325 MG/10 MG TAB PO PRN ×2 (06:31→12:11)
--- NOTE | 2016-07-21 07:15 | PD.CAR.PN ---
CVT Progress Note Subjective/Hospital Course: A pleasant 60-year-old male complaining ofcough, shortness of breath for a couple of weeks, also some rib pain that has been going on for about two weeks. He also complained of having some chills and night sweats. He had a chest x-ray at [facility] that showed a pleural effusion prompting further referral to the [place] emergency department. CT scan on 07/12 showed a large loculated right effusion, also some mediastinal lymphadenopathy. The patient underwent thoracentesis with placement of right chest tube. No growth in the pleural fluid from 07/12, no AFB, no fungal elements to date. He also had blood cultures which were negative. Nasal swab was negative for influenza A and B. He was found to have a white cell count of 30,000, lactic acid level of 1.6. Pleural fluids showed high WBCs of 64,000, glucose was less than one, more indicative of empyema. Chest tube was placed on the , 2000 mL of cloudy yellow fluid was removed. The patient had a repeat CT scan on the showing moderate size right pleural effusion tracking up the apex, consolidation in the right lower lobe, some middle mediastinal adenopathy. He also had TPA treatment and is also on antibiotics. Repeat CT chest reduction in size of right pleural effusion with residula effusion remaining , part which appears loculated pt is now scheduled for right video-assisted thoracoscopy, thoracotomy, possible drainage of the pleural effusion and decortication on Friday. PAST MEDICAL HISTORY 1. Hypertension, 2. Diabetes mellitus, 3. Hyperlipidemia, 4. Obesity, 5. Bipolar disorder, 6. Chronic lumbar pain 7. Vitamin D deficiency. 07/21 OR tomorrow afternoon Objective: Vital Signs Date Time Temp Pulse Resp B/P Pulse Ox O2 Delivery O2 Flow Rate FiO2 07/21/16 04:00 97.5 79 18 113/58 94 07/21/16 00:00 97.5 81 16 119/59 95 07/20/16 22:15 94 Nasal Cannula 3.00 07/20/16 21:00 Nasal Cannula 3.00 07/20/16 20:00 84 07/20/16 20:00 98.2 96 18 120/63 97 07/20/16 16:00 98.4 79 18 123/63 94 07/20/16 14:04 93 Nasal Cannula 3.00 07/20/16 12:00 97.9 82 18 125/59 95 07/20/16 09:00 91 07/20/16 08:00 97.9 84 18 121/61 93 07/20/16 08:00 Nasal Cannula 3.00 Result Diagram: 07/19/16 0644 07/17/16 0607 (1) Pleural effusion on right Plan: right video-assisted thoracoscopy, thoracotomy, possible drainage of the pleural effusion and decortication on Friday. (2) Pneumonia (3) Bipolar disease, chronic (4) DM2 (diabetes mellitus, type 2) (5) Hyperlipemia (6) HTN (hypertension) Problem Qualifiers (1) Pneumonia: Qualified Code: J18.9 - Pneumonia of right lung due to infectious organism, unspecified part of lung (2) DM2 (diabetes mellitus, type 2): Qualified Code: E11.9 - Type 2 diabetes mellitus without complication, without long-term current use of insulin (3) Hyperlipemia: Qualified Code: E78.5 - Hyperlipidemia, unspecified hyperlipidemia type (4) HTN (hypertension): Qualified Code: I10 - Essential hypertension Elizabet Moore MD Jul 21, 2016 07:15
[2016-07-21 07:24] LABS: PROTHROMBIN TIME - PATIENT 11.6 SEC (9.8-11.6)
[2016-07-21] MEDS: amLODIPine BESYLATE 5 MG TAB PO SCH (08:55)
[2016-07-21] MEDS: DIVALPROEX DR 500 MG TABEC PO SCH (08:55)
[2016-07-21] MEDS: FAMOTIDINE 20 MG TAB PO SCH ×2 (08:55→21:30)
[2016-07-21] MEDS: DOCUSATE SODIUM 100 MG CAP PO SCH ×2 (08:55→21:30)
[2016-07-21] MEDS: ATORVASTATIN 10 MG TAB PO SCH (08:55)
[2016-07-21] MEDS: SODIUM CHLORIDE 0.9% FLUSH 10 ML FLUSH IV FLUSH SCH ×4 (08:56→21:30)
--- NOTE | 2016-07-21 13:08 | HHI.PR ---
Subjective Remarks stable overnight. no new complaints Objective Vitals heart reg lung right lung ct diminished bs abd s/nt ext no edema Vital Signs Date Time Temp Pulse Resp B/P Pulse Ox O2 Delivery O2 Flow Rate FiO2 07/21/16 11:08 98.6 87 18 123/59 94 07/21/16 09:43 95 Nasal Cannula 3.00 07/21/16 08:00 Nasal Cannula 3.00 07/21/16 07:42 98.0 84 18 122/59 95 07/21/16 04:00 97.5 79 18 113/58 94 07/21/16 00:00 97.5 81 16 119/59 95 07/20/16 22:15 94 Nasal Cannula 3.00 07/20/16 21:00 Nasal Cannula 3.00 07/20/16 20:00 84 07/20/16 20:00 98.2 96 18 120/63 97 07/20/16 16:00 98.4 79 18 123/63 94 07/20/16 14:04 93 Nasal Cannula 3.00 07/20/16 07/20/16 07/21/16 15:00 23:00 07:00 Intake Total 900 ml 460 ml 580 ml Output Total 1280 ml 840 ml 1250 ml Balance -380 ml -380 ml -670 ml Intake Oral 900 ml 360 ml 480 ml IV Total 100 ml 100 ml Output Urine Total 1100 ml 800 ml 1200 ml Chest Tube Drainage Total 180 ml 40 ml 50 ml # Bowel Movements 1 0 0 Result Diagram: 07/19/16 0644 07/17/16 0607 Imaging Last Impressions Chest X-Ray 07/13/16 0000 Signed Impressions: Service Date/Time: Wednesday, July 13, 2016 08:06 - CONCLUSION: Reduction in size of the right pleural effusion. Nitin Ling MD Chest CT 07/12/16 1747 Signed Impressions: Service Date/Time: Tuesday, July 12, 2016 18:11 - CONCLUSION: Enormous loculated right pleural effusion. Enlarged mediastinal lymph nodes. Paras Chang MD Chest Tube Insertion 07/12/16 0000 Signed Impressions: Service Date/Time: Tuesday, July 12, 2016 21:17 - CONCLUSION: Uncomplicated CT-guided thoracentesis. Paras Chang MD A/P Problem List: (1) Pleural effusion on right Status: Acute Plan: - Pt admitted with c/o productive cough and SOB x 2 weeks - Pt has a 40 yr smoking history - CT chest (07/12/16) showed enormous, loculated, right pleural effusion - Has 2 family members with lung ca - Pt given one dose of rocephin and azithromycin in the ER (07/12/16) - Pt started on zosyn (07/12/16 - present) - Pt underwent right thoracentesis with placement of right chest tube. The initial fluid was white and purelent in appearance. - pleural fluid analysis shows the fluid to be exudate - pleural fluid pathology is pending - CXR (07/13/16) - right chest tube - decreased right pleural effusion with moderated loculated pleural effusion remaining - airspace consolidation at RML and RLL - pneumothorax concern would be for parapneumonic effusion/empyema. malignancy in differential. no hx RA. Discussed with IR/CTS. consulted also Dr Bro pulmonary. I think this pt will need a VATS or thoracotomy with undiagnosed exudative effusion and no clear answer from the analysis so far with cx's negative and cytology negative. TPA did seem to increase output. Surgery planned for tomorrow. (2) DM2 (diabetes mellitus, type 2) Status: Acute Plan: - diet controlled - last HgA1C 6.2 (04/08/16) (3) HTN (hypertension) Status: Chronic Plan: - stable - norvasc (4) Bipolar disease, chronic Status: Chronic Plan: - stable - depakote, seroquel (5) Hyperlipemia Status: Chronic Plan: - continue statin Problem Qualifiers (1) DM2 (diabetes mellitus, type 2): Qualified Code: E11.9 - Type 2 diabetes mellitus without complication, without long-term current use of insulin (2) HTN (hypertension): Qualified Code: I10 - Essential hypertension (3) Hyperlipemia: Qualified Code: E78.5 - Hyperlipidemia, unspecified hyperlipidemia type Mino Boateng MD Jul 21, 2016 13:08
[2016-07-21] MEDS: QUEtiapine FUMARATE 100 MG TAB PO SCH (21:30)
[2016-07-22] VITALS: BP 114/56; PULSE 89; RESP 18; TEMP 97.1; O2SAT 94
[2016-07-22] MEDS: ACETAMINOPHEN/HYDROcodone 325 MG/10 MG TAB PO PRN ×2 (00:33→06:44)
[2016-07-22] MEDS: PIPERACIL-TAZO 3.375 GM PREMIX 50 ML IV SCH ×4 (02:23→20:26)
[2016-07-22] MEDS: HYDROmorphone HCL PF 1 MG/ML VIAL IV PUSH PRN ×3 (04:05→19:09)
[2016-07-22 04:40] VITALS: BP 120/62; PULSE 80; RESP 18; TEMP 98.8; O2SAT 93
[2016-07-22] MEDS ORDERED: LACTATED RINGER'S 1000 ML IV PRN (05:45)
[2016-07-22] MEDS ORDERED: POVIDONE IODINE 5% (ANTISEPSIS KIT) 4 APPLICATIONS EACH NARE PRN (05:45)
[2016-07-22] MEDS ORDERED: SODIUM CHLORID 0.9% 500 ML IV PRN (05:45)
[2016-07-22] MEDS ORDERED: CHLORHEXIDINE GLUCONATE 2 % 1 PACK (2 CLOTHS) TOPICAL PRN (05:45)
[2016-07-22] MEDS ORDERED: INSULIN HUMAN REGULAR 1,000 UNITS/10 ML VIAL SQ PRN (05:45)
[2016-07-22 08:00] VITALS: BP 113/60; PULSE 78; PULSE 79; RESP 18; TEMP 97.6; O2SAT 93; O2SAT 95
[2016-07-22] MEDS: amLODIPine BESYLATE 5 MG TAB PO SCH (09:00)
[2016-07-22] MEDS: FAMOTIDINE 20 MG TAB PO SCH ×2 (09:00→20:36)
[2016-07-22] MEDS: DOCUSATE SODIUM 100 MG CAP PO SCH (09:00)
[2016-07-22] MEDS: ATORVASTATIN 10 MG TAB PO SCH (09:00)
[2016-07-22] MEDS: SODIUM CHLORIDE 0.9% FLUSH 10 ML FLUSH IV FLUSH SCH ×3 (09:00→20:37)
[2016-07-22] MEDS ORDERED: BUPIVACAINE LIPOSO PF 1.3% INJ 20 ML, DEXAMETHASONE INJ 4 MG, MORPHINE INJ 10 MG in SOD... P-ARTICULR SCH (09:30)
[2016-07-22] MEDS: DIVALPROEX DR 500 MG TABEC PO SCH (10:07)
[2016-07-22 12:00] VITALS: BP 104/56; PULSE 75; RESP 18; TEMP 97.4; O2SAT 98
--- NOTE | 2016-07-22 14:31 | EKG ---
Date Performed: 07/22/2016 Time Performed: 08:02:53 PTAGE: 60 years EKG: Sinus rhythm NORMAL ECG PREVIOUS TRACING : 07/12/2016 16.22 Compared to prior tracing no significant change DOCTOR: Brandon Negron Interpretating Date/Time 07/22/2016 14:26:55
[2016-07-22] MEDS ORDERED: NORMOSOL R INJ 1,000 ML IV ONE (14:45)
[2016-07-22] MEDS ORDERED: NEOSTIGMINE 3 MG/3 ML SYR IV ONE (14:45)
[2016-07-22] MEDS ORDERED: PROPOFOL 200 MG/20 ML AMP IV ONE (14:45)
[2016-07-22] MEDS ORDERED: ONDANSETRON HCL 4 MG/2 ML VIAL IV PUSH ONE (14:45)
[2016-07-22] MEDS ORDERED: oxyCODONE/ACETAMINOPHEN 5 MG/325 MG TAB PO PRN ×2 (15:15)
[2016-07-22] MEDS ORDERED: Post-op Orders (for Pharmacy) MISC OTHER ONE (15:15)
[2016-07-22] MEDS ORDERED: ACETAMINOPHEN 325 MG TAB PO PRN (15:15)
[2016-07-22] MEDS ORDERED: MAGNESIUM HYDROXIDE SUSP 30 ML CUP PO PRN (15:15)
[2016-07-22] MEDS ORDERED: ONDANSETRON HCL 4 MG/2 ML VIAL IV PUSH PRN (15:15)
[2016-07-22] MEDS ORDERED: *MEPERIDINE 25 MG INJ VIAL PERIprocedural Use ONLY ONE (15:30)
[2016-07-22] MEDS ORDERED: fentaNYL CITRATE 250 MCG/5 ML AMP ONE (15:36)
[2016-07-22] MEDS ORDERED: *morphine SULFATE 8 MG/ML PERIprocedure ONLY ONE ×2 (15:40→15:52)
--- NOTE | 2016-07-22 16:49 | PD.OP ---
cc: Mino Boateng MD; Elizabet Moore MD Operative Report Date of Surgery: Jul 22, 2016 Preoperative Diagnosis: Postoperative Diagnosis: Procedure: 1. Right Posterolateral Muscle Sparing Thoracotomy 2. Decortication 3. Intercostal Nerve Block . Surgeon: Elizabet Moore Apparatus Cleaner(s): Nataliya Nur . Operation and Findings: PREOPERATIVE DIAGNOSIS 1. Right Empyema 2. COPD 3. Pneumonia POSTOPERATIVE DIAGNOSIS same PROCEDURES 1. Right Posterolateral Muscle Sparing Thoracotomy 2. Decortication 3. Intercostal Nerve Block SURGEON Elizabet Moore MD SEAMLESS TUBE MILL OPERATOR KIT Rodriguez ANESTHESIA General endotracheal. CUTTER GRINDER OPERATOR WALLACE Boss MD OPERATIVE TIME Please see record. COMPLICATIONS None. INDICATION FOR PROCEDURE The patient is a 60 yo gentleman with right empyema presenting for surgical resection of above pathology. DESCRIPTION OF PROCEDURE The patient was brought to the operating suite and placed in supine position. Following satisfactory induction of general double-lumen endotracheal anesthesia , the patient was placed in the left lateral decubitus position. The right chest and surrounding area was then prepped and draped in the usual sterile fashion. A standard muscle-sparing posterolateral thoracotomy was performed and the serratus anterior muscle spared. The pleural space was entered. Exploration of the chest revealed a stage IV Empyema with a thick peel encasing the lung as well as the parietal pleura. The peel was very densely adherent to the visceral pleura and the underlying lung was very consolidated. All loculations and fluid pockets were also evacuated. Circumferential decortication was performed and specimen sent for microbiological analysis. The pleural space was copiously irrigated with antibiotic solution. At this point the closure was undertaken. A 32-Qatari chest tube was placed. Intercostal nerve block was performed at the level of the incision and 3 rib spaces above and below using Exparel with Decadron solution. The pericostal space was approximated with interrupted #1 Vicryl sutures in a pericostal fashion. The serratus fascia and Latissimus dorsi were closed with running 0-Vicryl and the remaining wounds closed with 3-0 , and 4-0 Monocryl. The patient tolerated the procedure well and postoperatively went to the PACU in stable condition. Elizabet Moore MD Jul 22, 2016 16:49
--- NOTE | 2016-07-22 17:07 | RADRPT ---
EXAM DATE/TIME: 07/22/2016 16:05 [facility] COMPARISON: CHEST PA & LAT, July 15, 2016, 9:56. CHEST SINGLE AP, July 12, 2016, 16:22. INDICATIONS : Post thoracotomy, pain right chest MEDICAL HISTORY : right pleural effusion SURGICAL HISTORY : None. ENCOUNTER: Subsequent ACUITY: 1 week PAIN SCORE: 10/10 LOCATION: Right chest FINDINGS: A single AP semierect view of the chest was obtained and demonstrates interval removal of the previou sly noted small bore right-sided chest tube with no pneumothorax. A lateral right effusion remains. T here is hazy opacity in the right perihilar region and right lung base. There's been interval placeme nt of a right subclavian central venous line. There is atelectasis of the left lung base. The heart s ize is within normal limits. The bony thorax remains intact with overlying electrocardiogram leads. CONCLUSION: 1. Interval removal of right-sided chest tube with no pneumothorax. 2. A loculated right lateral effusion remains. 3. Hazy opacity remains in the right lung. Prabhjot Burgos MD on July 22, 2016 at 17:03 Board Certified Radiologist. This report was verified electronically.
[2016-07-22] MEDS ORDERED: *HYDROmorphone PF 1 MG VIAL PERIprocedural Use ONLY ONE (17:25)
[2016-07-22] MEDS: KETOROLAC TROMETHAMINE 30 MG/ML (IVP) VIAL IV PUSH SCH (18:00)
[2016-07-22] MEDS: ACETAMINOPHEN 1000 MG/100 ML VIAL IV SCH (18:00)
[2016-07-22 18:51] VITALS: BP 112/58; PULSE 103; RESP 18; TEMP 99; O2SAT 93
--- NOTE | 2016-07-22 20:09 | HHI.PR ---
Subjective Remarks 60 YOWM with Bipolar disorder,Pl effusion, s/p TPA had Decortication mild Chest pain Objective Vital Signs Vital Signs Date Time Temp Pulse Resp B/P Pulse Ox O2 Delivery O2 Flow Rate FiO2 07/22/16 18:51 99.0 103 18 112/58 93 07/22/16 12:00 97.4 75 18 104/56 98 07/22/16 08:00 97.6 78 18 113/60 95 07/22/16 08:00 93 Nasal Cannula 3.00 07/22/16 04:40 98.8 80 18 120/62 93 07/22/16 00:00 97.1 89 18 114/56 94 07/21/16 21:30 Nasal Cannula 3.00 07/21/16 20:58 95 Nasal Cannula 3.00 07/21/16 20:40 98.1 97 19 131/62 95 I/O 07/21/16 07/21/16 07/21/16 07/22/16 07/22/16 07/22/16 07:00 15:00 23:00 07:00 15:00 23:00 Intake Total 580 ml 720 ml 50 ml 650 ml 0 ml Output Total 1250 ml 725 ml 90 ml 2640 ml Balance -670 ml -5 ml -40 ml -1990 ml 0 ml Intake Oral 480 ml 720 ml 600 ml 0 ml IV Total 100 ml 50 ml 50 ml Output Urine Total 1200 ml 725 ml 2600 ml Chest Tube Drainage Total 50 ml 90 ml 40 ml # Voids 3 # Bowel Movements 0 0 0 Result Diagram: 07/19/16 0644 Objective Remarks GENERAL: WBWN WM mild discomfort SKIN: Warm and dry. HEAD: Normocephalic. EYES: No scleral icterus. No injection or drainage. NECK: Supple, trachea midline. No JVD or lymphadenopathy. CARDIOVASCULAR: Regular rate and rhythm without murmurs, gallops, or rubs. RESPIRATORY: Breath sounds equal bilaterally. No accessory muscle use. Right chest tube draining GASTROINTESTINAL: Abdomen soft, non-tender, nondistended. MUSCULOSKELETAL: No cyanosis, or edema. BACK: Nontender without obvious deformity. No CVA tenderness. A/P Assessment and Plan Right pl effusion, s/p chest tube and TPA Atelactesis Lung infilt DM Bipolar disorder PLAN: Cont Abx Chest tube to Suction Monitor BS. JOSE pt and his brother at [facility] Aneja,Agus Knenedy MD Jul 22, 2016 20:08
[2016-07-22] MEDS: PANTOPRAZOLE SOD 40 MG DELAYED RELEASE TAB PO SCH (20:35)
[2016-07-22] MEDS: DOCUSATE CALCIUM 240 MG CAP PO SCH (20:35)
[2016-07-22] MEDS: QUEtiapine FUMARATE 100 MG TAB PO SCH (20:36)
[2016-07-22 22:53] VITALS: O2SAT 95
[2016-07-23] VITALS (8 sets, daily range): BP systolic 96–120; BP diastolic 55–73; PULSE 73–104; RESP 16–20; TEMP 97.3–98.9; O2SAT 95–100
[2016-07-23] MEDS: KETOROLAC TROMETHAMINE 30 MG/ML (IVP) VIAL IV PUSH SCH ×3 (00:40→12:00)
[2016-07-23] MEDS: HYDROmorphone HCL PF 2 MG/ML VIAL IV PUSH PRN ×3 (00:41→20:12)
[2016-07-23] MEDS: ACETAMINOPHEN 1000 MG/100 ML VIAL IV SCH ×3 (00:43→12:00)
[2016-07-23] MEDS: SODIUM CHLORIDE 0.9% FLUSH 10 ML FLUSH IV FLUSH PRN (00:44)
[2016-07-23] MEDS: PIPERACIL-TAZO 3.375 GM PREMIX 50 ML IV SCH ×4 (02:28→20:11)
[2016-07-23] MEDS: ACETAMINOPHEN/HYDROcodone 325 MG/10 MG TAB PO PRN ×3 (04:34→17:21)
--- NOTE | 2016-07-23 06:40 | RADRPT ---
EXAM DATE/TIME: 07/23/2016 05:50 [facility] COMPARISON: CT THORAX W CONTRAST, July 19, 2016, 8:28. CHEST SINGLE AP, July 22, 2016, 16:05. INDICATIONS : Short of breath, chest pain, evaluate post thoracotomy MEDICAL HISTORY : None. SURGICAL HISTORY : thoracotomy ENCOUNTER: Subsequent ACUITY: 2 days PAIN SCORE: 10/10 LOCATION: Right chest FINDINGS: A single view of the chest demonstrates the right chest remains in place. There is no pneumothorax. T here appears to be some increasing consolidation in the right mid and right lower lung compared to th e prior study. The left lung remains grossly clear. The heart size is stable. The bony structures are stable.. CONCLUSION: Increasing consolidation in the right mid to right lower lung compared to the prior study. David Henderson MD on July 23, 2016 at 6:37 Board Certified Radiologist. This report was verified electronically.
[2016-07-23 07:30] LABS: BASOPHIL # 0.1 TH/MM3 (0-0.2); BASOPHIL % 0.5 % (0.0-2.0); HEMATOCRIT 24.9 % (39.0-51.0); LYMPH % 9.8 % (9.0-44.0); LYMPHOCYTE # 1.5 TH/MM3 (1.0-4.8); MEAN CELL VOLUME 85.4 FL (80.0-100.0); MEAN CORPUSCULAR HEMOGLOBIN 27.1 PG (27.0-34.0); MEAN CORPUSCULAR HGB CONC 31.8 % (32.0-36.0); MONO % 7.3 % (0.0-8.0); NEUT % 82.4 % (16.0-70.0); PLATELET COUNT 198 TH/MM3 (150-450); RED BLOOD COUNT 2.91 MIL/MM3 (4.50-5.90); RED CELL DISTRIBUTION WIDTH 16.3 % (11.6-17.2); WHITE BLOOD COUNT 15.7 TH/MM3 (4.0-11.0)
[2016-07-23] MEDS: ATORVASTATIN 10 MG TAB PO SCH (07:39)
[2016-07-23] MEDS: DIVALPROEX DR 500 MG TABEC PO SCH (07:40)
[2016-07-23] MEDS: amLODIPine BESYLATE 5 MG TAB PO SCH (07:40)
[2016-07-23] MEDS: FAMOTIDINE 20 MG TAB PO SCH ×2 (07:40→20:09)
[2016-07-23] MEDS: SODIUM CHLORIDE 0.9% FLUSH 10 ML FLUSH IV FLUSH SCH ×2 (07:41→20:11)
[2016-07-23 07:52] LABS: HEMO FLAGS AUTO DIFF
[2016-07-23 07:56] LABS: BICARBONATE 30.9 MEQ/L (21.0-32.0)
[2016-07-23 08:35] LABS: BANDS 27 % (0-6); NEUTROPHIL # MANUAL DIFF 14.3 TH/MM3 (1.8-7.7); POLYS (SEG NEUTROPHILS) 64 % (16-70); WBC DIFF SAMPLE 100
[2016-07-23 08:36] LABS: PLATELET ESTIMATE SMEAR NORMAL (NORMAL)
[2016-07-23 08:42] LABS: PLATELET MORPHOLOGY CLUMPED (NORMAL)
[2016-07-23 08:43] LABS: SCAN/DIFF FINAL DIFF MANUAL
--- NOTE | 2016-07-23 12:43 | HHI.PR ---
Subjective Remarks Pt off floor for surgery during rounds 07/22 Pt c/o right sided chest pain, not relieved with current regimen of norco/ diluadid Pt is tolerating PO intake. Objective Vitals Vital Signs Date Time Temp Pulse Resp B/P Pulse Ox O2 Delivery O2 Flow Rate FiO2 07/23/16 12:00 98.2 76 20 101/55 95 07/23/16 09:00 48 07/23/16 08:30 18 07/23/16 08:00 97.4 74 20 115/62 96 07/23/16 04:48 97.4 73 16 103/73 96 07/23/16 00:10 97.3 104 18 96/61 100 07/22/16 22:53 95 Face Tent 6.00 40 07/22/16 18:51 99.0 103 18 112/58 93 07/22/16 18:30 112 16 100/52 98 Simple Mask 35 07/22/16 17:30 98 16 131/68 97 Simple Mask 35 07/22/16 16:30 101 16 127/67 94 Aerosol Mask 50 07/22/16 16:15 107 16 138/77 92 Aerosol Mask 35 07/22/16 16:00 95 16 98/61 92 Simple Mask 10 07/22/16 15:45 95 16 96/58 96 Simple Mask 10 07/22/16 15:30 121 16 193/89 94 Simple Mask 10 07/22/16 15:21 98.1 121 16 193/89 94 Simple Mask 10 07/22/16 07/22/16 07/23/16 15:00 23:00 07:00 Intake Total 0 ml 2530 ml Output Total 1720 ml 250 ml Balance 0 ml 810 ml -250 ml Intake Oral 0 ml 480 ml IV Total 250 ml Other 1800 ml Output Urine Total 1620 ml Chest Tube Drainage Total 250 ml Estimated Blood Loss 100 ml # Bowel Movements 0 Result Diagram: 07/23/16 0700 07/23/16 0700 Imaging Last Impressions Chest X-Ray 07/23/16 0500 Signed Impressions: Service Date/Time: Saturday, July 23, 2016 05:50 - CONCLUSION: Increasing consolidation in the right mid to right lower lung compared to the prior study. David Henderson MD Chest CT 07/19/16 0800 Signed Impressions: Service Date/Time: Tuesday, July 19, 2016 08:28 - CONCLUSION: 1. Reduction in size of the right pleural effusion with residual pleural effusion remaining part of it appears to be loculated. 2. Right lung base consolidation and slight left lung base atelectasis and/or infiltrate. 3. No significant change in pathological adenopathy within the mediastinum. Nitin Ling MD Chest Tube Insertion 07/12/16 0000 Signed Impressions: Service Date/Time: Tuesday, July 12, 2016 21:17 - CONCLUSION: Uncomplicated CT-guided thoracentesis. Paras Chang MD Objective Remarks GENERAL: This is a well-nourished, well-developed patient, in no apparent distress. CARDIOVASCULAR: Regular rate and rhythm without murmurs, gallops, or rubs. RESPIRATORY: decreased air movement in right lung field GASTROINTESTINAL: Abdomen soft, non-tender, nondistended. Normal active bowel sounds MUSCULOSKELETAL: Extremities without clubbing, cyanosis, or edema. NEURO: Alert & Oriented x4 to person, place, time, situation. Moves all ext x4 A/P Problem List: (1) Pleural effusion on right Status: Acute Plan: - comgmt with Pulm Med and thoracic surgery - Pt admitted with c/o productive cough and SOB x 2 weeks - Pt has a 40 yr smoking history - CT chest (07/12/16) showed enormous, loculated, right pleural effusion - Has 2 family members with lung ca - Pt given one dose of rocephin and azithromycin in the ER (07/12/16) - Pt started on zosyn (07/12/16 - present) - Pt underwent right thoracentesis with placement of right chest tube. The initial fluid was white and purelent in appearance. - pleural fluid analysis shows the fluid to be exudate - pleural fluid pathology --> no evidence of cancer - CXR (07/13/16) - right chest tube - decreased right pleural effusion with moderated loculated pleural effusion remaining - airspace consolidation at RML and RLL - pneumothorax - Pt underwent right lung decortication (07/22/16) with Dr. Elizabet Yang - appears to be empyema without evidence of malignancy - cytology pending - Chest tube, 250ml output - start morphine ER 15mg BID - prn norco/dilaudid (2) DM2 (diabetes mellitus, type 2) Status: Acute Plan: - diet controlled - last HgA1C 6.2 (04/08/16) (3) HTN (hypertension) Status: Chronic Plan: - stable - norvasc (4) Bipolar disease, chronic Status: Chronic Plan: - stable - depakote, seroquel (5) Hyperlipemia Status: Chronic Plan: - continue statin Problem Qualifiers (1) DM2 (diabetes mellitus, type 2): Qualified Code: E11.9 - Type 2 diabetes mellitus without complication, without long-term current use of insulin (2) HTN (hypertension): Qualified Code: I10 - Essential hypertension (3) Hyperlipemia: Qualified Code: E78.5 - Hyperlipidemia, unspecified hyperlipidemia type Mauricio Rdz DO Jul 23, 2016 12:43
[2016-07-23] MEDS ORDERED: MAGNESIUM HYDROXIDE SUSP 30 ML CUP PO PRN (13:15)
[2016-07-23] MEDS: MORPHINE SULFATE 15 MG CONTROLLED RELEASE TAB PO SCH ×2 (13:15→22:45)
--- NOTE | 2016-07-23 16:13 | PD.CAR.PN ---
CVT Progress Note Subjective/Hospital Course: A pleasant 60-year-old male complaining ofcough, shortness of breath for a couple of weeks, also some rib pain that has been going on for about two weeks. He also complained of having some chills and night sweats. He had a chest x-ray at [facility] that showed a pleural effusion prompting further referral to the [place] emergency department. CT scan on 07/12 showed a large loculated right effusion, also some mediastinal lymphadenopathy. The patient underwent thoracentesis with placement of right chest tube. No growth in the pleural fluid from 07/12, no AFB, no fungal elements to date. He also had blood cultures which were negative. Nasal swab was negative for influenza A and B. He was found to have a white cell count of 30,000, lactic acid level of 1.6. Pleural fluids showed high WBCs of 64,000, glucose was less than one, more indicative of empyema. Chest tube was placed on the , 2000 mL of cloudy yellow fluid was removed. The patient had a repeat CT scan on the showing moderate size right pleural effusion tracking up the apex, consolidation in the right lower lobe, some middle mediastinal adenopathy. He also had TPA treatment and is also on antibiotics. Repeat CT chest reduction in size of right pleural effusion with residula effusion remaining , part which appears loculated pt is now scheduled for right video-assisted thoracoscopy, thoracotomy, possible drainage of the pleural effusion and decortication on Friday. PAST MEDICAL HISTORY 1. Hypertension, 2. Diabetes mellitus, 3. Hyperlipidemia, 4. Obesity, 5. Bipolar disorder, 6. Chronic lumbar pain 7. Vitamin D deficiency. 07/21 OR tomorrow afternoon 07/22 surgery: 1. Right Posterolateral Muscle Sparing Thoracotomy, . Decortication Objective: GENERAL: SKIN: Warm and dry.color slightly pale HEAD: Normocephalic. EYES: No scleral icterus. No injection or drainage. NECK: Supple, trachea midline. No JVD or lymphadenopathy. CARDIOVASCULAR: Regular rate and rhythm without murmurs, gallops, or rubs. RESPIRATORY: Breath sounds equal bilaterally. No accessory muscle use. GASTROINTESTINAL: Abdomen soft, non-tender, nondistended. MUSCULOSKELETAL: No cyanosis, or edema. BACK: Nontender without obvious deformity. No CVA tenderness. Vital Signs Date Time Temp Pulse Resp B/P Pulse Ox O2 Delivery O2 Flow Rate FiO2 07/23/16 16:01 98 Nasal Cannula 3.00 07/23/16 16:00 98.9 74 20 120/57 98 07/23/16 12:00 98.2 76 20 101/55 95 07/23/16 09:00 48 07/23/16 08:30 18 07/23/16 08:30 98 Aerosol Mask 6.00 35 07/23/16 08:00 97.4 74 20 115/62 96 07/23/16 04:48 97.4 73 16 103/73 96 07/23/16 00:10 97.3 104 18 96/61 100 07/22/16 22:53 95 Face Tent 6.00 40 07/22/16 18:51 99.0 103 18 112/58 93 07/22/16 18:30 112 16 100/52 98 Simple Mask 35 07/22/16 17:30 98 16 131/68 97 Simple Mask 35 07/22/16 16:30 101 16 127/67 94 Aerosol Mask 50 07/22/16 16:15 107 16 138/77 92 Aerosol Mask 35 Labs: Laboratory Tests Test 07/23/16 07:00 White Blood Count 15.7 TH/MM3 (4.0-11.0) Red Blood Count 2.91 MIL/MM3 (4.50-5.90) Hemoglobin 7.9 GM/DL (13.0-17.0) Hematocrit 24.9 % (39.0-51.0) Mean Corpuscular Volume 85.4 FL (80.0-100.0) Mean Corpuscular Hemoglobin 27.1 PG (27.0-34.0) Mean Corpuscular Hemoglobin 31.8 % Concent (32.0-36.0) Red Cell Distribution Width 16.3 % (11.6-17.2) Platelet Count 198 TH/MM3 (150-450) Mean Platelet Volume 9.3 FL (7.0-11.0) Neutrophils (%) (Auto) 82.4 % (16.0-70.0) Lymphocytes (%) (Auto) 9.8 % (9.0-44.0) Monocytes (%) (Auto) 7.3 % (0.0-8.0) Eosinophils (%) (Auto) 0.0 % (0.0-4.0) Basophils (%) (Auto) 0.5 % (0.0-2.0) Neutrophils # (Auto) 13.0 TH/MM3 (1.8-7.7) Lymphocytes # (Auto) 1.5 TH/MM3 (1.0-4.8) Monocytes # (Auto) 1.1 TH/MM3 (0-0.9) Eosinophils # (Auto) 0.0 TH/MM3 (0-0.4) Basophils # (Auto) 0.1 TH/MM3 (0-0.2) CBC Comment AUTO DIFF Differential Total Cells 100 Counted Neutrophils % (Manual) 64 % (16-70) Band Neutrophils % 27 % (0-6) Lymphocytes % 4 % (9-44) Monocytes % 5 % (0-8) Neutrophils # (Manual) 14.3 TH/MM3 (1.8-7.7) Differential Comment FINAL DIFF MANUAL Platelet Estimate NORMAL (NORMAL) Platelet Morphology Comment CLUMPED (NORMAL) Sodium Level 133 MEQ/L (136-145) Potassium Level 5.0 MEQ/L (3.5-5.1) Chloride Level 95 MEQ/L (98-107) Carbon Dioxide Level 30.9 MEQ/L (21.0-32.0) Anion Gap 7 MEQ/L (5-15) Blood Urea Nitrogen 17 MG/DL (7-18) Creatinine 1.06 MG/DL (0.60-1.30) Estimat Glomerular Filtration 71 ML/MIN (>89) Rate Random Glucose 138 MG/DL (74-106) Calcium Level 7.9 MG/DL (8.5-10.1) Result Diagram: 07/23/16 0700 07/23/16 0700 Telemetry: NSR incomplete RBBB (1) Pleural effusion on right Plan: s/p right video-assisted thoracoscopy, thoracotomy, possible drainage of the pleural effusion and decortication leave chest tube in to suction recheck HGB in am gram stain neg of pleural fluid cytology pending OOB, ambulate pulm toileting (2) Pneumonia Plan: on ABX (3) Bipolar disease, chronic (4) DM2 (diabetes mellitus, type 2) (5) Hyperlipemia (6) HTN (hypertension) Problem Qualifiers (1) Pneumonia: Qualified Code: J18.9 - Pneumonia of right lung due to infectious organism, unspecified part of lung (2) DM2 (diabetes mellitus, type 2): Qualified Code: E11.9 - Type 2 diabetes mellitus without complication, without long-term current use of insulin (3) Hyperlipemia: Qualified Code: E78.5 - Hyperlipidemia, unspecified hyperlipidemia type (4) HTN (hypertension): Qualified Code: I10 - Essential hypertension Hyacinth Ha Jul 23, 2016 16:13
--- NOTE | 2016-07-23 18:58 | HHI.PR ---
Subjective Remarks 60 YOWM with Bipolar disorder,Pl effusion, s/p TPA had Decortication mild Chest pain chest tube draining Feels better today Objective Vital Signs Vital Signs Date Time Temp Pulse Resp B/P Pulse Ox O2 Delivery O2 Flow Rate FiO2 07/23/16 16:01 98 Nasal Cannula 3.00 07/23/16 16:00 98.9 74 20 120/57 98 07/23/16 16:00 16 07/23/16 12:00 98.2 76 20 101/55 95 07/23/16 09:00 48 07/23/16 08:30 18 07/23/16 08:30 98 Aerosol Mask 6.00 35 07/23/16 08:00 97.4 74 20 115/62 96 07/23/16 08:00 73 07/23/16 04:48 97.4 73 16 103/73 96 07/23/16 00:10 97.3 104 18 96/61 100 07/22/16 22:53 95 Face Tent 6.00 40 I/O 07/22/16 07/22/16 07/22/16 07/23/16 07/23/16 07/23/16 07:00 15:00 23:00 07:00 15:00 23:00 Intake Total 650 ml 0 ml 2530 ml 690 ml Output Total 2640 ml 1720 ml 250 ml 450 ml Balance -1990 ml 0 ml 810 ml -250 ml 240 ml Intake Oral 600 ml 0 ml 480 ml 690 ml IV Total 50 ml 250 ml Other 1800 ml Output Urine Total 2600 ml 1620 ml 450 ml Chest Tube Drainage Total 40 ml 250 ml Estimated Blood Loss 100 ml # Bowel Movements 0 0 0 Result Diagram: 07/23/16 0707/23/16 0700 Objective Remarks GENERAL: WBWN WM mild discomfort SKIN: Warm and dry. HEAD: Normocephalic. EYES: No scleral icterus. No injection or drainage. NECK: Supple, trachea midline. No JVD or lymphadenopathy. CARDIOVASCULAR: Regular rate and rhythm without murmurs, gallops, or rubs. RESPIRATORY: Breath sounds equal bilaterally. No accessory muscle use. Right chest tube draining GASTROINTESTINAL: Abdomen soft, non-tender, nondistended. MUSCULOSKELETAL: No cyanosis, or edema. BACK: Nontender without obvious deformity. No CVA tenderness. A/P Assessment and Plan Right pl effusion, s/p chest tube and TPA Atelactesis Lung infilt DM Bipolar disorder PLAN: Cont Abx Chest tube to Suction Monitor BS. DW pt and his brother at BS supplement 02 Agus Bro MD Jul 23, 2016 18:58
[2016-07-23] MEDS: DOCUSATE CALCIUM 240 MG CAP PO SCH (20:09)
[2016-07-23] MEDS: PANTOPRAZOLE SOD 40 MG DELAYED RELEASE TAB PO SCH (20:09)
[2016-07-23] MEDS: QUEtiapine FUMARATE 100 MG TAB PO SCH (20:09)
[2016-07-24] VITALS (12 sets, daily range): BP systolic 102–120; BP diastolic 53–65; PULSE 74–84; RESP 16–20; TEMP 96–98.5; O2SAT 94–96
[2016-07-24] MEDS: ACETAMINOPHEN/HYDROcodone 325 MG/10 MG TAB PO PRN ×4 (02:40→20:31)
[2016-07-24] MEDS: PIPERACIL-TAZO 3.375 GM PREMIX 50 ML IV SCH ×4 (02:45→20:31)
[2016-07-24] MEDS: SODIUM CHLORIDE 0.9% FLUSH 10 ML FLUSH IV FLUSH PRN (03:58)
[2016-07-24] MEDS: HYDROmorphone HCL PF 2 MG/ML VIAL IV PUSH PRN ×4 (03:58→23:39)
[2016-07-24 07:11] LABS: MEAN CELL VOLUME 85.2 FL (80.0-100.0); MEAN CORPUSCULAR HEMOGLOBIN 28.1 PG (27.0-34.0); PLATELET COUNT 182 TH/MM3 (150-450); RED BLOOD COUNT 2.17 MIL/MM3 (4.50-5.90); RED CELL DISTRIBUTION WIDTH 16.2 % (11.6-17.2); WHITE BLOOD COUNT 6.3 TH/MM3 (4.0-11.0)
--- NOTE | 2016-07-24 07:15 | RADRPT ---
EXAM DATE/TIME: 07/24/2016 06:04 [place] COMPARISON: CT THORAX W CONTRAST, July 19, 2016, 8:28. CHEST SINGLE AP, July 23, 2016, 5:50. INDICATIONS : Post thoracotomy. MEDICAL HISTORY : Cerebrovascular disease. Hypertension Hepatitis C. SURGICAL HISTORY : Thoracotomy, right. ENCOUNTER: Subsequent ACUITY: 1 day PAIN SCORE: 6/10 LOCATION: Right chest FINDINGS: AP expiratory view of the chest demonstrates a normal-sized cardiac silhouette. Right subclavian cent ral line tip is in the SVC and no pneumothorax is visualized. A large bore right chest tube remains p resent and there is a persistent but slightly decreased right pleural-parenchymal opacity. Opacity th e left lung base likely represents atelectasis. CONCLUSION: 1. Right chest tube remains present and the pleural effusion has slightly decreased since yesterday's exam. There is associated airspace consolidation and atelectasis at the right lung base. 2. Stable mild atelectasis at the left lung base. Paras Hobbs MD on July 24, 2016 at 7:11 Board Certified Radiologist. This report was verified electronically.
[2016-07-24 07:22] LABS: REVIEW FLAG FINAL
[2016-07-24 07:26] LABS: HEMATOCRIT 18.5 % (39.0-51.0)
[2016-07-24 07:29] LABS: BICARBONATE 34.9 MEQ/L (21.0-32.0); POTASSIUM 3.9 MEQ/L (3.5-5.1)
[2016-07-24] MEDS ORDERED: FUROSEMIDE 20 MG/2 ML VIAL IV PUSH PRN (08:45)
[2016-07-24] MEDS ORDERED: FUROSEMIDE 20 MG/2 ML VIAL IV PUSH ONE (08:45)
[2016-07-24] MEDS: FAMOTIDINE 20 MG TAB PO SCH ×2 (08:58→20:31)
[2016-07-24] MEDS: DIVALPROEX DR 500 MG TABEC PO SCH (08:58)
[2016-07-24] MEDS: ATORVASTATIN 10 MG TAB PO SCH (08:58)
[2016-07-24] MEDS: amLODIPine BESYLATE 5 MG TAB PO SCH (08:58)
[2016-07-24] MEDS: MORPHINE SULFATE 15 MG CONTROLLED RELEASE TAB PO SCH ×2 (08:59→20:31)
[2016-07-24] MEDS: SODIUM CHLORIDE 0.9% FLUSH 10 ML FLUSH IV FLUSH SCH ×2 (09:00→20:32)
--- NOTE | 2016-07-24 12:03 | HHI.PR ---
Subjective Remarks bloody drainage from chest tube. Pt's Hg dropped to 6.1 Objective Vitals Vital Signs Date Time Temp Pulse Resp B/P Pulse Ox O2 Delivery O2 Flow Rate FiO2 07/24/16 11:50 96.3 74 20 107/54 94 07/24/16 11:34 96.4 79 20 107/54 95 07/24/16 08:00 97.5 81 18 119/57 96 07/24/16 07:15 Nasal Cannula 2.00 Aerosol Mask 07/24/16 05:31 97.8 78 16 102/55 96 07/24/16 01:36 98.3 77 16 102/53 94 07/23/16 21:43 97.8 81 16 116/56 97 07/23/16 20:00 84 07/23/16 16:01 98 Nasal Cannula 3.00 07/23/16 16:00 98.9 74 20 120/57 98 07/23/16 16:00 16 07/23/16 12:00 98.2 76 20 101/55 95 07/23/16 07/23/16 07/24/16 15:00 23:00 07:00 Intake Total 690 ml 200 ml Output Total 450 ml 1275 ml 1800 ml Balance 240 ml -1075 ml -1800 ml Intake Oral 690 ml 200 ml Output Urine Total 450 ml 775 ml 1700 ml Chest Tube Drainage Total 500 ml 100 ml # Bowel Movements 0 0 0 Result Diagram: 07/24/16 0600 07/24/16 0600 Imaging Last Impressions Chest X-Ray 07/23/16 0500 Signed Impressions: Service Date/Time: Saturday, July 23, 2016 05:50 - CONCLUSION: Increasing consolidation in the right mid to right lower lung compared to the prior study. David Henderson MD Chest CT 07/19/16 0800 Signed Impressions: Service Date/Time: Tuesday, July 19, 2016 08:28 - CONCLUSION: 1. Reduction in size of the right pleural effusion with residual pleural effusion remaining part of it appears to be loculated. 2. Right lung base consolidation and slight left lung base atelectasis and/or infiltrate. 3. No significant change in pathological adenopathy within the mediastinum. Nitin Ling MD Chest Tube Insertion 07/12/16 0000 Signed Impressions: Service Date/Time: Tuesday, July 12, 2016 21:17 - CONCLUSION: Uncomplicated CT-guided thoracentesis. Paras Chang MD Objective Remarks GENERAL: This is a well-nourished, well-developed patient, in no apparent distress. CARDIOVASCULAR: Regular rate and rhythm without murmurs, gallops, or rubs. RESPIRATORY: decreased air movement in right lung field, bloody drainage from chest tube GASTROINTESTINAL: Abdomen soft, non-tender, nondistended. Normal active bowel sounds MUSCULOSKELETAL: Extremities without clubbing, cyanosis, or edema. NEURO: Alert & Oriented x4 to person, place, time, situation. Moves all ext x4 A/P Problem List: (1) Pleural effusion on right Status: Acute Plan: - comgmt with Pulm Med and thoracic surgery - Pt admitted with c/o productive cough and SOB x 2 weeks - Pt has a 40 yr smoking history - CT chest (07/12/16) showed enormous, loculated, right pleural effusion - Has 2 family members with lung ca - Pt given one dose of rocephin and azithromycin in the ER (07/12/16) - Pt started on zosyn (07/12/16 - present) - Pt underwent right thoracentesis with placement of right chest tube. The initial fluid was white and purelent in appearance. - pleural fluid analysis shows the fluid to be exudate - pleural fluid pathology --> no evidence of cancer - CXR (07/13/16) - right chest tube - decreased right pleural effusion with moderated loculated pleural effusion remaining - airspace consolidation at RML and RLL - pneumothorax - Pt underwent right lung decortication (07/22/16) with Dr. Elizabet Yang - appears to be empyema without evidence of malignancy - cytology pending - Chest tube, 250ml output - morphine ER 15mg BID - prn norco/dilaudid - transfuse 2 units PRBCs - will d/w surgical service (2) DM2 (diabetes mellitus, type 2) Status: Acute Plan: - diet controlled - last HgA1C 6.2 (04/08/16) (3) HTN (hypertension) Status: Chronic Plan: - stable - norvasc (4) Bipolar disease, chronic Status: Chronic Plan: - stable - depakote, seroquel (5) Hyperlipemia Status: Chronic Plan: - continue statin Problem Qualifiers (1) DM2 (diabetes mellitus, type 2): Qualified Code: E11.9 - Type 2 diabetes mellitus without complication, without long-term current use of insulin (2) HTN (hypertension): Qualified Code: I10 - Essential hypertension (3) Hyperlipemia: Qualified Code: E78.5 - Hyperlipidemia, unspecified hyperlipidemia type Mauricio Rdz DO Jul 24, 2016 12:03
--- NOTE | 2016-07-24 14:39 | PD.CAR.PN ---
CVT Progress Note Subjective/Hospital Course: A pleasant 60-year-old male complaining ofcough, shortness of breath for a couple of weeks, also some rib pain that has been going on for about two weeks. He also complained of having some chills and night sweats. He had a chest x-ray at [facility] that showed a pleural effusion prompting further referral to the [place] emergency department. CT scan on 07/12 showed a large loculated right effusion, also some mediastinal lymphadenopathy. The patient underwent thoracentesis with placement of right chest tube. No growth in the pleural fluid from 07/12, no AFB, no fungal elements to date. He also had blood cultures which were negative. Nasal swab was negative for influenza A and B. He was found to have a white cell count of 30,000, lactic acid level of 1.6. Pleural fluids showed high WBCs of 64,000, glucose was less than one, more indicative of empyema. Chest tube was placed on the , 2000 mL of cloudy yellow fluid was removed. The patient had a repeat CT scan on the showing moderate size right pleural effusion tracking up the apex, consolidation in the right lower lobe, some middle mediastinal adenopathy. He also had TPA treatment and is also on antibiotics. Repeat CT chest reduction in size of right pleural effusion with residula effusion remaining , part which appears loculated pt is now scheduled for right video-assisted thoracoscopy, thoracotomy, possible drainage of the pleural effusion and decortication on Friday. PAST MEDICAL HISTORY 1. Hypertension, 2. Diabetes mellitus, 3. Hyperlipidemia, 4. Obesity, 5. Bipolar disorder, 6. Chronic lumbar pain 7. Vitamin D deficiency. 07/21 OR tomorrow afternoon 07/22 surgery: 1. Right Posterolateral Muscle Sparing Thoracotomy, . Decortication 07/23 chest tube no air leak 250cc/ blood drainage incision intact wean 02 , pulm toileting 07/24 HGB 6.1 / drained 600cc / 12 hrs period drainage becoming more sero sang will monitor H&H , PLT stable/ pt did receive TPA prior to surgery OOB Objective: GENERAL: SKIN: Warm and dry.incision intact right lateral chest wall HEAD: Normocephalic. EYES: No scleral icterus. No injection or drainage. NECK: Supple, trachea midline. No JVD or lymphadenopathy. CARDIOVASCULAR: Regular rate and rhythm without murmurs, gallops, or rubs. RESPIRATORY: Breath sounds equal bilaterally. No accessory muscle use. chest tube to wall suction, no air leak / drained 600cc/ 12 hrs , will monitor GASTROINTESTINAL: Abdomen soft, non-tender, nondistended. MUSCULOSKELETAL: No cyanosis, or edema. BACK: Nontender without obvious deformity. No CVA tenderness. Vital Signs Date Time Temp Pulse Resp B/P Pulse Ox O2 Delivery O2 Flow Rate FiO2 07/24/16 12:00 96.4 76 18 104/54 96 07/24/16 11:50 96.3 74 20 107/54 94 07/24/16 11:34 96.4 79 20 107/54 95 07/24/16 09:11 96 Nasal Cannula 3.00 07/24/16 08:00 97.5 81 18 119/57 96 07/24/16 07:15 Nasal Cannula 2.00 Aerosol Mask 07/24/16 05:31 97.8 78 16 102/55 96 07/24/16 01:36 98.3 77 16 102/53 94 07/23/16 21:43 97.8 81 16 116/56 97 07/23/16 20:00 84 07/23/16 16:01 98 Nasal Cannula 3.00 07/23/16 16:00 98.9 74 20 120/57 98 07/23/16 16:00 16 Labs: Laboratory Tests Test 07/24/16 07/24/16 06:00 09:20 White Blood Count 6.3 TH/MM3 (4.0-11.0) Red Blood Count 2.17 MIL/MM3 (4.50-5.90) Hemoglobin 6.1 GM/DL (13.0-17.0) Hematocrit 18.5 % (39.0-51.0) Mean Corpuscular Volume 85.2 FL (80.0-100.0) Mean Corpuscular Hemoglobin 28.1 PG (27.0-34.0) Mean Corpuscular Hemoglobin 33.0 % Concent (32.0-36.0) Red Cell Distribution Width 16.2 % (11.6-17.2) Platelet Count 182 TH/MM3 (150-450) Mean Platelet Volume 10.0 FL (7.0-11.0) Sodium Level 137 MEQ/L (136-145) Potassium Level 3.9 MEQ/L (3.5-5.1) Chloride Level 97 MEQ/L (98-107) Carbon Dioxide Level 34.9 MEQ/L (21.0-32.0) Anion Gap 5 MEQ/L (5-15) Blood Urea Nitrogen 10 MG/DL (7-18) Creatinine 0.63 MG/DL (0.60-1.30) Estimat Glomerular Filtration 130 ML/MIN Rate (>89) Random Glucose 99 MG/DL (74-106) Calcium Level 7.8 MG/DL (8.5-10.1) Blood Type O POSITIVE Antibody Screen NEGATIVE Crossmatch Leukocyte-Reduced Red Blood Cells Blood Bank Comment Result Diagram: 07/24/16 0600 07/24/16 0600 (1) Pleural effusion on right Plan: s/p right video-assisted thoracoscopy, thoracotomy, drainage of the pleural effusion and decortication leave chest tube in to suction recheck HGB in this pm and am gram stain neg of pleural fluid cytology pending OOB, ambulate pulm toileting (2) Pneumonia Plan: on ABX (3) Bipolar disease, chronic (4) DM2 (diabetes mellitus, type 2) (5) Hyperlipemia (6) HTN (hypertension) (7) Blood loss anemia Plan: transfuse 2 units PRBC, follow H&H INR preop 1.1 PLT 182 Problem Qualifiers (1) Pneumonia: Qualified Code: J18.9 - Pneumonia of right lung due to infectious organism, unspecified part of lung (2) DM2 (diabetes mellitus, type 2): Qualified Code: E11.9 - Type 2 diabetes mellitus without complication, without long-term current use of insulin (3) Hyperlipemia: Qualified Code: E78.5 - Hyperlipidemia, unspecified hyperlipidemia type (4) HTN (hypertension): Qualified Code: I10 - Essential hypertension Hyacinth Ha Jul 24, 2016 14:39
--- NOTE | 2016-07-24 19:45 | HHI.PR ---
Subjective Remarks 60 YOWM with Bipolar disorder,Pl effusion, s/p TPA had Decortication mild Chest pain chest tube draining Feels better today Receiving PRBC Objective Vital Signs Vital Signs Date Time Temp Pulse Resp B/P Pulse Ox O2 Delivery O2 Flow Rate FiO2 07/24/16 16:35 96.0 79 20 115/58 07/24/16 16:00 96.5 84 18 103/59 95 07/24/16 12:00 96.4 76 18 104/54 96 07/24/16 11:50 96.3 74 20 107/54 94 07/24/16 11:34 96.4 79 20 107/54 95 07/24/16 09:11 96 Nasal Cannula 3.00 07/24/16 08:30 75 07/24/16 08:00 97.5 81 18 119/57 96 07/24/16 07:15 Nasal Cannula 2.00 Aerosol Mask 07/24/16 05:31 97.8 78 16 102/55 96 07/24/16 01:36 98.3 77 16 102/53 94 07/23/16 21:43 97.8 81 16 116/56 97 07/23/16 20:00 84 I/O 07/23/16 07/23/16 07/23/16 07/24/16 07/24/16 07/24/16 07:00 15:00 23:00 07:00 15:00 23:00 Intake Total 690 ml 200 ml 2194 ml Output Total 250 ml 450 ml 1275 ml 1800 ml 1755 ml Balance -250 ml 240 ml -1075 ml -1800 ml 439 ml Intake Oral 690 ml 200 ml 1800 ml IV Total 394 ml Output Urine Total 450 ml 775 ml 1700 ml 1725 ml Chest Tube Drainage Total 250 ml 500 ml 100 ml 30 ml # Bowel Movements 0 0 0 Result Diagram: 07/24/1659907/24/16 06 Objective Remarks GENERAL: WBWN WM mild discomfort SKIN: Warm and dry. HEAD: Normocephalic. EYES: No scleral icterus. No injection or drainage. NECK: Supple, trachea midline. No JVD or lymphadenopathy. CARDIOVASCULAR: Regular rate and rhythm without murmurs, gallops, or rubs. RESPIRATORY: Breath sounds equal bilaterally. No accessory muscle use. Right chest tube draining GASTROINTESTINAL: Abdomen soft, non-tender, nondistended. MUSCULOSKELETAL: No cyanosis, or edema. BACK: Nontender without obvious deformity. No CVA tenderness. A/P Assessment and Plan Right pl effusion, s/p chest tube and TPA Atelactesis Lung infilt DM Bipolar disorder PLAN: Cont Abx Chest tube to Suction Monitor BS. DW pt and his brother at BS supplement 02 monitor H/H Agus Bro MD Jul 24, 2016 19:45
[2016-07-24] MEDS: QUEtiapine FUMARATE 100 MG TAB PO SCH (20:31)
[2016-07-24] MEDS: PANTOPRAZOLE SOD 40 MG DELAYED RELEASE TAB PO SCH (20:31)
[2016-07-24] MEDS: DOCUSATE CALCIUM 240 MG CAP PO SCH (20:31)
[2016-07-24 21:07] LABS: AUTOMATED NEUTROPHIL # 5.3 TH/MM3 (1.8-7.7); BASOPHIL # 0.1 TH/MM3 (0-0.2); BASOPHIL % 1.1 % (0.0-2.0); EOSINOPHIL # 0.2 TH/MM3 (0-0.4); EOSINOPHIL % 2.8 % (0.0-4.0); LYMPH % 23.1 % (9.0-44.0); LYMPHOCYTE # 1.9 TH/MM3 (1.0-4.8); MEAN CELL VOLUME 83.8 FL (80.0-100.0); MEAN CORPUSCULAR HEMOGLOBIN 27.8 PG (27.0-34.0); MEAN CORPUSCULAR HGB CONC 33.1 % (32.0-36.0); WHITE BLOOD COUNT 8.3 TH/MM3 (4.0-11.0)
[2016-07-24 21:13] LABS: HEMO FLAGS AUTO DIFF
[2016-07-24 21:46] LABS: PLATELET ESTIMATE SMEAR NORMAL (NORMAL); PLATELET MORPHOLOGY NORMAL (NORMAL); SCAN/DIFF AUTO DIFF CONFIRMED
[2016-07-24 21:48] LABS: PLATELET COUNT 127 TH/MM3 (150-450)
[2016-07-25] VITALS (8 sets, daily range): BP systolic 108–124; BP diastolic 55–63; PULSE 69–84; RESP 18–20; TEMP 97.6–98.3; O2SAT 95–97
[2016-07-25] MEDS: PIPERACIL-TAZO 3.375 GM PREMIX 50 ML IV SCH ×4 (02:19→20:48)
[2016-07-25] MEDS: ACETAMINOPHEN/HYDROcodone 325 MG/10 MG TAB PO PRN ×4 (02:20→20:48)
--- NOTE | 2016-07-25 05:38 | RADRPT ---
EXAM DATE/TIME: 07/25/2016 05:14 [place] COMPARISON: CHEST SINGLE AP, July 24, 2016, 6:04. INDICATIONS : Shortness of breath MEDICAL HISTORY : Cerebrovascular disease. Hypertension. Hepatitis C. SURGICAL HISTORY : Thoracotomy, right. ENCOUNTER: Subsequent ACUITY: 2 days PAIN SCORE: 0/10 LOCATION: Bilateral chest FINDINGS: Right chest tube remains in place. No pneumothorax. No change in the parenchymal consolidation in the right lower lung. The left lung is clear and well-aerated. The heart size is stable. CONCLUSION: No significant interval change. David Henderson MD on July 25, 2016 at 5:36 Board Certified Radiologist. This report was verified electronically.
[2016-07-25] MEDS: HYDROmorphone HCL PF 2 MG/ML VIAL IV PUSH PRN ×3 (05:46→17:47)
[2016-07-25 06:04] LABS: HEMATOCRIT 26.2 % (39.0-51.0); MEAN CORPUSCULAR HEMOGLOBIN 27.7 PG (27.0-34.0); PLATELET COUNT 198 TH/MM3 (150-450); RED BLOOD COUNT 3.12 MIL/MM3 (4.50-5.90); RED CELL DISTRIBUTION WIDTH 16.3 % (11.6-17.2); REVIEW FLAG FINAL; WHITE BLOOD COUNT 7.3 TH/MM3 (4.0-11.0)
[2016-07-25] MEDS: ATORVASTATIN 10 MG TAB PO SCH (08:42)
[2016-07-25] MEDS: FAMOTIDINE 20 MG TAB PO SCH ×2 (08:42→20:48)
[2016-07-25] MEDS: DIVALPROEX DR 500 MG TABEC PO SCH (08:42)
[2016-07-25] MEDS: amLODIPine BESYLATE 5 MG TAB PO SCH (08:42)
[2016-07-25] MEDS: MORPHINE SULFATE 15 MG CONTROLLED RELEASE TAB PO SCH ×3 (08:45→22:03)
[2016-07-25] MEDS: SODIUM CHLORIDE 0.9% FLUSH 10 ML FLUSH IV FLUSH SCH ×2 (08:46→20:49)
--- NOTE | 2016-07-25 10:57 | HHI.PR ---
Subjective Remarks No new complaints. Objective Vitals Vital Signs Date Time Temp Pulse Resp B/P Pulse Ox O2 Delivery O2 Flow Rate FiO2 07/25/16 08:00 69 07/25/16 08:00 98.0 72 20 116/57 95 07/25/16 07:15 Nasal Cannula 2.50 07/25/16 04:49 97.7 70 18 108/57 95 07/25/16 03:02 84 07/24/16 23:30 98.5 76 18 116/63 95 07/24/16 20:30 98.1 78 18 120/65 96 07/24/16 20:20 Nasal Cannula 3.00 07/24/16 16:35 96.0 79 20 115/58 07/24/16 16:00 96.5 84 18 103/59 95 07/24/16 12:00 96.4 76 18 104/54 96 07/24/16 11:50 96.3 74 20 107/54 94 07/24/16 11:34 96.4 79 20 107/54 95 07/24/16 07/24/16 07/25/16 14:59 22:59 06:59 Intake Total 2194 ml 1320 ml 720 ml Output Total 1755 ml 1550 ml 1720 ml Balance 439 ml -230 ml -1000 ml Intake Oral 1800 ml 1320 ml 720 ml IV Total 394 ml Output Urine Total 1725 ml 1550 ml 1720 ml Chest Tube Drainage Total 30 ml # Bowel Movements 0 0 Result Diagram: 07/25/16 0550 07/24/16 0600 Imaging Last Impressions Chest X-Ray 07/23/16 0500 Signed Impressions: Service Date/Time: Saturday, July 23, 2016 05:50 - CONCLUSION: Increasing consolidation in the right mid to right lower lung compared to the prior study. David Henderson MD Chest CT 07/19/16 0800 Signed Impressions: Service Date/Time: Tuesday, July 19, 2016 08:28 - CONCLUSION: 1. Reduction in size of the right pleural effusion with residual pleural effusion remaining part of it appears to be loculated. 2. Right lung base consolidation and slight left lung base atelectasis and/or infiltrate. 3. No significant change in pathological adenopathy within the mediastinum. Nitin Ling MD Chest Tube Insertion 07/12/16 0000 Signed Impressions: Service Date/Time: Tuesday, July 12, 2016 21:17 - CONCLUSION: Uncomplicated CT-guided thoracentesis. Paras Chang MD Objective Remarks GENERAL: This is a well-nourished, well-developed patient, in no apparent distress. CARDIOVASCULAR: Regular rate and rhythm without murmurs, gallops, or rubs. RESPIRATORY: decreased air movement in right lung field, bloody drainage from chest tube GASTROINTESTINAL: Abdomen soft, non-tender, nondistended. Normal active bowel sounds MUSCULOSKELETAL: Extremities without clubbing, cyanosis, or edema. NEURO: Alert & Oriented x4 to person, place, time, situation. Moves all ext x4 A/P Problem List: (1) Pleural effusion on right Status: Acute Plan: - comgmt with Pulm Med and thoracic surgery - Pt admitted with c/o productive cough and SOB x 2 weeks - Pt has a 40 yr smoking history - CT chest (07/12/16) showed enormous, loculated, right pleural effusion - Has 2 family members with lung ca - Pt given one dose of rocephin and azithromycin in the ER (07/12/16) - Pt started on zosyn (07/12/16 - present) - Pt underwent right thoracentesis with placement of right chest tube. The initial fluid was white and purelent in appearance. - pleural fluid analysis shows the fluid to be exudate - pleural fluid pathology --> no evidence of cancer - CXR (07/13/16) - right chest tube - decreased right pleural effusion with moderated loculated pleural effusion remaining - airspace consolidation at RML and RLL - pneumothorax - Pt underwent right lung decortication (07/22/16) with Dr. Elizabet Yang - appears to be empyema without evidence of malignancy - pathology (07/22/16) --> NO malignant cells, pleural with acute and chronically ulcerated surface, attached acute inflammatory exudate - Chest tube, 600ml output (07/24/16), 30ml (07/24/16) recorded in [facility] so far - morphine ER 15mg BID - prn norco/dilaudid - transfused 2 units PRBCs (07/25/16) - hg 6.1 (07/24/16), 8.6 (07/25/16) - will d/w surgical service (07/24/16) - repeat CBC in AM (2) DM2 (diabetes mellitus, type 2) Status: Acute Plan: - diet controlled - last HgA1C 6.2 (04/08/16) (3) HTN (hypertension) Status: Chronic Plan: - stable - norvasc (4) Bipolar disease, chronic Status: Chronic Plan: - stable - depakote, seroquel (5) Hyperlipemia Status: Chronic Plan: - continue statin Problem Qualifiers (1) DM2 (diabetes mellitus, type 2): Qualified Code: E11.9 - Type 2 diabetes mellitus without complication, without long-term current use of insulin (2) HTN (hypertension): Qualified Code: I10 - Essential hypertension (3) Hyperlipemia: Qualified Code: E78.5 - Hyperlipidemia, unspecified hyperlipidemia type Mauricio Rdz DO Jul 25, 2016 10:57
--- NOTE | 2016-07-25 12:49 | PD.CAR.PN ---
CVT Progress Note Subjective/Hospital Course: A pleasant 60-year-old male complaining ofcough, shortness of breath for a couple of weeks, also some rib pain that has been going on for about two weeks. He also complained of having some chills and night sweats. He had a chest x-ray at [facility] that showed a pleural effusion prompting further referral to the [place] emergency department. CT scan on 07/12 showed a large loculated right effusion, also some mediastinal lymphadenopathy. The patient underwent thoracentesis with placement of right chest tube. No growth in the pleural fluid from 07/12, no AFB, no fungal elements to date. He also had blood cultures which were negative. Nasal swab was negative for influenza A and B. He was found to have a white cell count of 30,000, lactic acid level of 1.6. Pleural fluids showed high WBCs of 64,000, glucose was less than one, more indicative of empyema. Chest tube was placed on the , 2000 mL of cloudy yellow fluid was removed. The patient had a repeat CT scan on the showing moderate size right pleural effusion tracking up the apex, consolidation in the right lower lobe, some middle mediastinal adenopathy. He also had TPA treatment and is also on antibiotics. Repeat CT chest reduction in size of right pleural effusion with residula effusion remaining , part which appears loculated pt is now scheduled for right video-assisted thoracoscopy, thoracotomy, possible drainage of the pleural effusion and decortication on Friday. PAST MEDICAL HISTORY 1. Hypertension, 2. Diabetes mellitus, 3. Hyperlipidemia, 4. Obesity, 5. Bipolar disorder, 6. Chronic lumbar pain 7. Vitamin D deficiency. 07/21 OR tomorrow afternoon 07/22 surgery: 1. Right Posterolateral Muscle Sparing Thoracotomy, . Decortication 07/23 chest tube no air leak 250cc/ blood drainage incision intact wean 02 , pulm toileting 07/24 HGB 6.1 / drained 600cc / 12 hrs period drainage becoming more sero sang will monitor H&H , PLT stable/ pt did receive TPA prior to surgery OOB 07/25 HGB improved after 2 units PRBC CXR noted, still has consolidation right lower mid lobe needs pulm toileting chest tube drained 30cc/ 12 hrs / now 90 since this am , still bloody pt need to be OOB up in chiar, reconsult PT leave chest tube in Objective: GENERAL: SKIN: Warm and dry.incision intact and well approximated right posterior lateral chest wall HEAD: Normocephalic. EYES: No scleral icterus. No injection or drainage. NECK: Supple, trachea midline. No JVD or lymphadenopathy. CARDIOVASCULAR: Regular rate and rhythm without murmurs, gallops, or rubs. RESPIRATORY: chest tube to wall suction / coarse breath sounds on right . No accessory muscle use. GASTROINTESTINAL: Abdomen soft, non-tender, nondistended. MUSCULOSKELETAL: No cyanosis, or edema. BACK: Nontender without obvious deformity. No CVA tenderness. Vital Signs Date Time Temp Pulse Resp B/P Pulse Ox O2 Delivery O2 Flow Rate FiO2 07/25/16 08:00 69 07/25/16 08:00 98.0 72 20 116/57 95 07/25/16 07:15 Nasal Cannula 2.50 07/25/16 04:49 97.7 70 18 108/57 95 07/25/16 03:02 84 07/24/16 23:30 98.5 76 18 116/63 95 07/24/16 20:30 98.1 78 18 120/65 96 07/24/16 20:20 Nasal Cannula 3.00 07/24/16 16:35 96.0 79 20 115/58 07/24/16 16:00 96.5 84 18 103/59 95 Labs: Laboratory Tests Test 07/25/16 05:50 White Blood Count 7.3 TH/MM3 (4.0-11.0) Red Blood Count 3.12 MIL/MM3 (4.50-5.90) Hemoglobin 8.6 GM/DL (13.0-17.0) Hematocrit 26.2 % (39.0-51.0) Mean Corpuscular Volume 84.0 FL (80.0-100.0) Mean Corpuscular Hemoglobin 27.7 PG (27.0-34.0) Mean Corpuscular Hemoglobin 33.0 % Concent (32.0-36.0) Red Cell Distribution Width 16.3 % (11.6-17.2) Platelet Count 198 TH/MM3 (150-450) Mean Platelet Volume 9.3 FL (7.0-11.0) Result Diagram: 07/25/16 0550 07/24/16 0600 (1) Pleural effusion on right Plan: s/p right video-assisted thoracoscopy, thoracotomy, drainage of the pleural effusion and decortication leave chest tube in to suction gram stain neg of pleural fluid cytology pending OOB, ambulate pulm toileting reconsult PT (2) Pneumonia Plan: on ABX (3) Bipolar disease, chronic (4) DM2 (diabetes mellitus, type 2) (5) Hyperlipemia (6) HTN (hypertension) (7) Blood loss anemia Plan: transfuse 2 units PRBC, follow H&H HGB 8.6 Problem Qualifiers (1) Pneumonia: Qualified Code: J18.9 - Pneumonia of right lung due to infectious organism, unspecified part of lung (2) DM2 (diabetes mellitus, type 2): Qualified Code: E11.9 - Type 2 diabetes mellitus without complication, without long-term current use of insulin (3) Hyperlipemia: Qualified Code: E78.5 - Hyperlipidemia, unspecified hyperlipidemia type (4) HTN (hypertension): Qualified Code: I10 - Essential hypertension Hyacinth Ha Jul 25, 2016 12:49
--- NOTE | 2016-07-25 19:55 | HHI.PR ---
Subjective Remarks 60 YOWM with Bipolar disorder,Pl effusion, s/p TPA had Decortication mild Chest pain chest tube draining Feels better . Objective Vital Signs Vital Signs Date Time Temp Pulse Resp B/P Pulse Ox O2 Delivery O2 Flow Rate FiO2 07/25/16 16:00 97.6 82 20 118/55 97 07/25/16 12:00 97.7 77 20 113/58 96 07/25/16 09:52 95 2.00 07/25/16 08:00 69 07/25/16 08:00 98.0 72 20 116/57 95 07/25/16 07:15 Nasal Cannula 2.50 07/25/16 04:49 97.7 70 18 108/57 95 07/25/16 03:02 84 07/24/16 23:30 98.5 76 18 116/63 95 07/24/16 20:30 98.1 78 18 120/65 96 07/24/16 20:20 Nasal Cannula 3.00 I/O 07/24/16 07/24/16 07/24/16 07/25/16 07/25/16 07/25/16 07:00 15:00 23:00 07:00 15:00 23:00 Intake Total 2194 ml 1320 ml 720 ml Output Total 1800 ml 1755 ml 1550 ml 1720 ml 334 ml Balance -1800 ml 439 ml -230 ml -1000 ml -334 ml Intake Oral 1800 ml 1320 ml 720 ml IV Total 394 ml Output Urine Total 1700 ml 1725 ml 1550 ml 1720 ml 300 ml Chest Tube Drainage Total 100 ml 30 ml 34 ml # Bowel Movements 0 0 0 Result Diagram: 07/25/16 0550 07/24/16 0600 Objective Remarks GENERAL: WBWN WM mild discomfort SKIN: Warm and dry. HEAD: Normocephalic. EYES: No scleral icterus. No injection or drainage. NECK: Supple, trachea midline. No JVD or lymphadenopathy. CARDIOVASCULAR: Regular rate and rhythm without murmurs, gallops, or rubs. RESPIRATORY: Breath sounds equal bilaterally. No accessory muscle use. Right chest tube draining GASTROINTESTINAL: Abdomen soft, non-tender, nondistended. MUSCULOSKELETAL: No cyanosis, or edema. BACK: Nontender without obvious deformity. No CVA tenderness. A/P Assessment and Plan Right pl effusion, s/p chest tube and TPA Atelactesis Lung infilt DM Bipolar disorder PLAN: Cont Abx Chest tube to Suction Monitor BS. supplement 02 Agus Bro MD Jul 25, 2016 19:55
[2016-07-25] MEDS: PANTOPRAZOLE SOD 40 MG DELAYED RELEASE TAB PO SCH (20:48)
[2016-07-25] MEDS: DOCUSATE CALCIUM 240 MG CAP PO SCH (20:48)
[2016-07-25] MEDS: QUEtiapine FUMARATE 100 MG TAB PO SCH (20:56)
[2016-07-26] VITALS (9 sets, daily range): BP systolic 108–120; BP diastolic 56–66; PULSE 73–79; RESP 16–20; TEMP 97.1–98.1; O2SAT 95–98
[2016-07-26] MEDS: PIPERACIL-TAZO 3.375 GM PREMIX 50 ML IV SCH ×4 (02:50→19:56)
[2016-07-26] MEDS: HYDROmorphone HCL PF 2 MG/ML VIAL IV PUSH PRN ×4 (02:52→21:52)
[2016-07-26] MEDS: ACETAMINOPHEN/HYDROcodone 325 MG/10 MG TAB PO PRN ×4 (04:52→23:36)
[2016-07-26 05:11] LABS: AUTOMATED NEUTROPHIL # 4.5 TH/MM3 (1.8-7.7); BASOPHIL # 0.1 TH/MM3 (0-0.2); BASOPHIL % 0.8 % (0.0-2.0); EOSINOPHIL # 0.4 TH/MM3 (0-0.4); EOSINOPHIL % 4.7 % (0.0-4.0); HEMO FLAGS DIFF FINAL; LYMPH % 25.3 % (9.0-44.0); LYMPHOCYTE # 1.9 TH/MM3 (1.0-4.8); MEAN CELL VOLUME 85.1 FL (80.0-100.0); MEAN CORPUSCULAR HEMOGLOBIN 28.1 PG (27.0-34.0); MEAN CORPUSCULAR HGB CONC 33.1 % (32.0-36.0); MONO % 9.3 % (0.0-8.0); NEUT % 59.9 % (16.0-70.0); PLATELET COUNT 100 TH/MM3 (150-450); RED BLOOD COUNT 3.05 MIL/MM3 (4.50-5.90); WHITE BLOOD COUNT 7.5 TH/MM3 (4.0-11.0)
[2016-07-26] MEDS: MORPHINE SULFATE 15 MG CONTROLLED RELEASE TAB PO SCH ×3 (05:58→21:51)
[2016-07-26] MEDS: SODIUM CHLORIDE 0.9% FLUSH 10 ML FLUSH IV FLUSH SCH ×2 (09:00→19:56)
[2016-07-26] MEDS: amLODIPine BESYLATE 5 MG TAB PO SCH (09:22)
[2016-07-26] MEDS: FAMOTIDINE 20 MG TAB PO SCH ×2 (09:22→19:56)
[2016-07-26] MEDS: DIVALPROEX DR 500 MG TABEC PO SCH (09:22)
[2016-07-26] MEDS: ATORVASTATIN 10 MG TAB PO SCH (09:22)
--- NOTE | 2016-07-26 14:15 | HHI.PR ---
Subjective Remarks No new complaints. Objective Vitals Vital Signs Date Time Temp Pulse Resp B/P Pulse Ox O2 Delivery O2 Flow Rate FiO2 07/26/16 12:00 97.6 77 20 114/59 95 07/26/16 08:00 97.8 74 20 119/66 95 07/26/16 04:00 97.8 73 18 108/56 95 07/26/16 00:00 97.1 76 16 116/57 96 07/25/16 22:44 97 Nasal Cannula 3.00 07/25/16 20:00 Nasal Cannula 3.00 07/25/16 20:00 98.3 79 18 124/63 97 07/25/16 20:00 78 07/25/16 16:00 97.6 82 20 118/55 97 07/25/16 07/25/16 07/26/16 15:00 23:00 07:00 Intake Total 480 ml 240 ml Output Total 334 ml 575 ml 1800 ml Balance -334 ml -95 ml -1560 ml Intake Oral 480 ml 240 ml Output Urine Total 300 ml 575 ml 1750 ml Chest Tube Drainage Total 34 ml 50 ml # Bowel Movements 0 0 Result Diagram: 07/26/16 0450 07/24/16 0600 Imaging Last Impressions Chest X-Ray 07/23/16 0500 Signed Impressions: Service Date/Time: Saturday, July 23, 2016 05:50 - CONCLUSION: Increasing consolidation in the right mid to right lower lung compared to the prior study. David Henderson MD Chest CT 07/19/16 0800 Signed Impressions: Service Date/Time: Tuesday, July 19, 2016 08:28 - CONCLUSION: 1. Reduction in size of the right pleural effusion with residual pleural effusion remaining part of it appears to be loculated. 2. Right lung base consolidation and slight left lung base atelectasis and/or infiltrate. 3. No significant change in pathological adenopathy within the mediastinum. Nitin Ling MD Chest Tube Insertion 07/12/16 0000 Signed Impressions: Service Date/Time: Tuesday, July 12, 2016 21:17 - CONCLUSION: Uncomplicated CT-guided thoracentesis. Paras Chang MD Objective Remarks GENERAL: This is a well-nourished, well-developed patient, in no apparent distress. CARDIOVASCULAR: Regular rate and rhythm without murmurs, gallops, or rubs. RESPIRATORY: decreased air movement in right lung field, bloody drainage from chest tube GASTROINTESTINAL: Abdomen soft, non-tender, nondistended. Normal active bowel sounds MUSCULOSKELETAL: Extremities without clubbing, cyanosis, or edema. NEURO: Alert & Oriented x4 to person, place, time, situation. Moves all ext x4 A/P Problem List: (1) Pleural effusion on right Status: Acute Plan: - comgmt with Pulm Med and thoracic surgery - Pt admitted with c/o productive cough and SOB x 2 weeks - Pt has a 40 yr smoking history - CT chest (07/12/16) showed enormous, loculated, right pleural effusion - Has 2 family members with lung ca - Pt given one dose of rocephin and azithromycin in the ER (07/12/16) - Pt started on zosyn (07/12/16 - present) - Pt underwent right thoracentesis with placement of right chest tube. The initial fluid was white and purelent in appearance. - pleural fluid analysis shows the fluid to be exudate - pleural fluid pathology --> no evidence of cancer - CXR (07/13/16) - right chest tube - decreased right pleural effusion with moderated loculated pleural effusion remaining - airspace consolidation at RML and RLL - pneumothorax - Pt underwent right lung decortication (07/22/16) with Dr. Elizabet Yang - appears to be empyema without evidence of malignancy - pathology (07/22/16) --> NO malignant cells, pleural with acute and chronically ulcerated surface, attached acute inflammatory exudate - Chest tube, 600ml output (07/24/16), 30ml (07/24/16), 34 (07/25/16), 50ml so far (07/26/16) - morphine ER 15mg BID - prn norco/dilaudid - transfused 2 units PRBCs (07/25/16) - hg 6.1 (07/24/16), 8.6 (07/25/16), 8.6 (07/26/16) - repeat CBC in AM (2) DM2 (diabetes mellitus, type 2) Status: Acute Plan: - diet controlled - last HgA1C 6.2 (04/08/16) (3) HTN (hypertension) Status: Chronic Plan: - stable - norvasc (4) Bipolar disease, chronic Status: Chronic Plan: - stable - depakote, seroquel (5) Hyperlipemia Status: Chronic Plan: - continue statin Problem Qualifiers (1) DM2 (diabetes mellitus, type 2): Qualified Code: E11.9 - Type 2 diabetes mellitus without complication, without long-term current use of insulin (2) HTN (hypertension): Qualified Code: I10 - Essential hypertension (3) Hyperlipemia: Qualified Code: E78.5 - Hyperlipidemia, unspecified hyperlipidemia type Mauricio Rdz DO Jul 26, 2016 14:15
--- NOTE | 2016-07-26 17:35 | PD.CAR.PN ---
CVT Progress Note Subjective/Hospital Course: A pleasant 60-year-old male complaining ofcough, shortness of breath for a couple of weeks, also some rib pain that has been going on for about two weeks. He also complained of having some chills and night sweats. He had a chest x-ray at [facility] that showed a pleural effusion prompting further referral to the [place] emergency department. CT scan on 07/12 showed a large loculated right effusion, also some mediastinal lymphadenopathy. The patient underwent thoracentesis with placement of right chest tube. No growth in the pleural fluid from 07/12, no AFB, no fungal elements to date. He also had blood cultures which were negative. Nasal swab was negative for influenza A and B. He was found to have a white cell count of 30,000, lactic acid level of 1.6. Pleural fluids showed high WBCs of 64,000, glucose was less than one, more indicative of empyema. Chest tube was placed on the , 2000 mL of cloudy yellow fluid was removed. The patient had a repeat CT scan on the showing moderate size right pleural effusion tracking up the apex, consolidation in the right lower lobe, some middle mediastinal adenopathy. He also had TPA treatment and is also on antibiotics. Repeat CT chest reduction in size of right pleural effusion with residula effusion remaining , part which appears loculated pt is now scheduled for right video-assisted thoracoscopy, thoracotomy, possible drainage of the pleural effusion and decortication on Friday. PAST MEDICAL HISTORY 1. Hypertension, 2. Diabetes mellitus, 3. Hyperlipidemia, 4. Obesity, 5. Bipolar disorder, 6. Chronic lumbar pain 7. Vitamin D deficiency. 07/21 OR tomorrow afternoon 07/22 surgery: 1. Right Posterolateral Muscle Sparing Thoracotomy, . Decortication 07/23 chest tube no air leak 250cc/ blood drainage incision intact wean 02 , pulm toileting 07/24 HGB 6.1 / drained 600cc / 12 hrs period drainage becoming more sero sang will monitor H&H , PLT stable/ pt did receive TPA prior to surgery OOB 07/25 HGB improved after 2 units PRBC CXR noted, still has consolidation right lower mid lobe needs pulm toileting chest tube drained 30cc/ 12 hrs / now 90 since this am , still bloody pt need to be OOB up in chiar, reconsult PT leave chest tube in 07/26 chest tube drained 80cc/ 12 hrs 100cc since this am , still bloody will hold on removing f/u labs in am Objective: GENERAL: SKIN: Warm and dry. HEAD: Normocephalic. EYES: No scleral icterus. No injection or drainage. NECK: Supple, trachea midline. No JVD or lymphadenopathy. CARDIOVASCULAR: Regular rate and rhythm without murmurs, gallops, or rubs. RESPIRATORY: very coarse breath sounds on right chest tube to water seal/ blood drainage . No accessory muscle use. GASTROINTESTINAL: Abdomen soft, non-tender, nondistended. MUSCULOSKELETAL: No cyanosis, or edema. BACK: Nontender without obvious deformity. No CVA tenderness. Vital Signs Date Time Temp Pulse Resp B/P Pulse Ox O2 Delivery O2 Flow Rate FiO2 07/26/16 16:00 20 07/26/16 16:00 98.1 79 20 120/62 98 07/26/16 12:00 97.6 77 20 114/59 95 07/26/16 10:45 97 Nasal Cannula 3.00 07/26/16 08:00 97.8 74 20 119/66 95 07/26/16 04:00 97.8 73 18 108/56 95 07/26/16 00:00 97.1 76 16 116/57 96 07/25/16 22:44 97 Nasal Cannula 3.00 07/25/16 20:00 Nasal Cannula 3.00 07/25/16 20:00 98.3 79 18 124/63 97 07/25/16 20:00 78 Result Diagram: 07/26/16 0450 07/24/16 0600 (1) Pleural effusion on right Plan: s/p right video-assisted thoracoscopy, thoracotomy, drainage of the pleural effusion and decortication leave chest tube , now to water seaL gram stain neg of pleural fluid cytology pending OOB, ambulate pulm toileting PT (2) Pneumonia Plan: on ABX (3) Bipolar disease, chronic (4) DM2 (diabetes mellitus, type 2) (5) Hyperlipemia (6) HTN (hypertension) (7) Blood loss anemia Plan: transfuse 2 units PRBC, follow H&H HGB 8.6 Problem Qualifiers (1) Pneumonia: Qualified Code: J18.9 - Pneumonia of right lung due to infectious organism, unspecified part of lung (2) DM2 (diabetes mellitus, type 2): Qualified Code: E11.9 - Type 2 diabetes mellitus without complication, without long-term current use of insulin (3) Hyperlipemia: Qualified Code: E78.5 - Hyperlipidemia, unspecified hyperlipidemia type (4) HTN (hypertension): Qualified Code: I10 - Essential hypertension Hyacinth Ha Jul 26, 2016 17:34
--- NOTE | 2016-07-26 18:57 | HHI.PR ---
Subjective Remarks 60 YOWM with Bipolar disorder,Pl effusion, s/p TPA had Decortication chest tube draining Feels better . No pain Good appetite. Objective Vital Signs Vital Signs Date Time Temp Pulse Resp B/P Pulse Ox O2 Delivery O2 Flow Rate FiO2 07/26/16 17:33 98 Nasal Cannula 3.00 07/26/16 16:00 20 07/26/16 16:00 98.1 79 20 120/62 98 07/26/16 12:00 97.6 77 20 114/59 95 07/26/16 10:45 97 Nasal Cannula 3.00 07/26/16 08:20 78 07/26/16 08:00 Nasal Cannula 3.00 07/26/16 08:00 97.8 74 20 119/66 95 07/26/16 04:00 97.8 73 18 108/56 95 07/26/16 00:00 97.1 76 16 116/57 96 07/25/16 22:44 97 Nasal Cannula 3.00 07/25/16 20:00 Nasal Cannula 3.00 07/25/16 20:00 98.3 79 18 124/63 97 07/25/16 20:00 78 I/O 07/25/16 07/25/16 07/25/16 07/26/16 07/26/16 07/26/16 07:00 15:00 23:00 07:00 15:00 23:00 Intake Total 720 ml 480 ml 240 ml 960 ml Output Total 1720 ml 334 ml 575 ml 1800 ml 975 ml Balance -1000 ml -334 ml -95 ml -1560 ml -15 ml Intake Oral 720 ml 480 ml 240 ml 960 ml Output Urine Total 1720 ml 300 ml 575 ml 1750 ml 975 ml Chest Tube Drainage Total 34 ml 50 ml # Bowel Movements 0 0 0 Result Diagram: 07/26/16 0450 07/24/16 0600 Objective Remarks GENERAL: WBWN WM mild discomfort SKIN: Warm and dry. HEAD: Normocephalic. EYES: No scleral icterus. No injection or drainage. NECK: Supple, trachea midline. No JVD or lymphadenopathy. CARDIOVASCULAR: Regular rate and rhythm without murmurs, gallops, or rubs. RESPIRATORY: Breath sounds equal bilaterally. No accessory muscle use. Right chest tube draining GASTROINTESTINAL: Abdomen soft, non-tender, nondistended. MUSCULOSKELETAL: No cyanosis, or edema. BACK: Nontender without obvious deformity. No CVA tenderness. A/P Assessment and Plan Right pl effusion, s/p chest tube and TPA Atelactesis Lung infilt DM Bipolar disorder PLAN: Cont Abx Chest tube to Suction Monitor BS. supplement 02 Agus Bro MD Jul 26, 2016 18:57
[2016-07-26] MEDS: QUEtiapine FUMARATE 100 MG TAB PO SCH (19:57)
[2016-07-26] MEDS: PANTOPRAZOLE SOD 40 MG DELAYED RELEASE TAB PO SCH (19:57)
[2016-07-26] MEDS: DOCUSATE CALCIUM 240 MG CAP PO SCH (19:57)
[2016-07-27] VITALS (9 sets, daily range): BP systolic 92–150; BP diastolic 51–72; PULSE 69–89; RESP 16–20; TEMP 97.5–98.6; O2SAT 95–99
[2016-07-27] MEDS: PIPERACIL-TAZO 3.375 GM PREMIX 50 ML IV SCH ×4 (01:24→21:15)
[2016-07-27] MEDS: MORPHINE SULFATE 15 MG CONTROLLED RELEASE TAB PO SCH ×3 (05:30→21:16)
[2016-07-27] MEDS: HYDROmorphone HCL PF 2 MG/ML VIAL IV PUSH PRN ×2 (05:30→17:22)
[2016-07-27 05:56] LABS: HEMATOCRIT 27.7 % (39.0-51.0); MEAN CELL VOLUME 86.6 FL (80.0-100.0); MEAN CORPUSCULAR HEMOGLOBIN 27.9 PG (27.0-34.0); MEAN CORPUSCULAR HGB CONC 32.2 % (32.0-36.0); PLATELET COUNT 138 TH/MM3 (150-450); RED CELL DISTRIBUTION WIDTH 15.7 % (11.6-17.2); REVIEW FLAG FINAL; WHITE BLOOD COUNT 7.2 TH/MM3 (4.0-11.0)
[2016-07-27 06:06] LABS: APTT (PATIENT) 28.4 SEC (24.3-30.1); PROTHROMBIN TIME - PATIENT 10.9 SEC (9.8-11.6)
[2016-07-27] MEDS: FAMOTIDINE 20 MG TAB PO SCH ×2 (08:37→21:16)
[2016-07-27] MEDS: DIVALPROEX DR 500 MG TABEC PO SCH (08:37)
[2016-07-27] MEDS: ACETAMINOPHEN/HYDROcodone 325 MG/10 MG TAB PO PRN ×3 (08:37→22:20)
[2016-07-27] MEDS: ATORVASTATIN 10 MG TAB PO SCH (08:37)
[2016-07-27] MEDS: amLODIPine BESYLATE 5 MG TAB PO SCH (08:37)
[2016-07-27] MEDS: SODIUM CHLORIDE 0.9% FLUSH 10 ML FLUSH IV FLUSH SCH ×2 (08:38→21:16)
[2016-07-27] MEDS ORDERED: HYDROmorphone HCL PF 1 MG/ML VIAL IV PUSH ONE (11:00)
--- NOTE | 2016-07-27 12:14 | HHI.PR ---
Subjective Remarks No new complaints. Objective Vitals Vital Signs Date Time Temp Pulse Resp B/P Pulse Ox O2 Delivery O2 Flow Rate FiO2 07/27/16 12:00 98.0 75 16 92/51 97 07/27/16 11:50 95 Nasal Cannula 3.00 07/27/16 08:40 Nasal Cannula 3.00 07/27/16 08:40 89 07/27/16 08:00 97.8 83 16 138/72 95 07/27/16 04:00 97.6 69 20 107/56 97 07/27/16 00:00 97.5 72 20 106/68 97 07/26/16 20:00 97.7 76 20 119/62 97 07/26/16 20:00 Nasal Cannula 3.00 35 07/26/16 20:00 74 07/26/16 17:33 98 Nasal Cannula 3.00 07/26/16 16:00 20 07/26/16 16:00 98.1 79 20 120/62 98 07/26/16 07/26/16 07/27/16 15:00 23:00 07:00 Intake Total 960 ml 720 ml 720 ml Output Total 975 ml 1520 ml 1080 ml Balance -15 ml -800 ml -360 ml Intake Oral 960 ml 720 ml 720 ml Output Urine Total 975 ml 1450 ml 1050 ml Chest Tube Drainage Total 70 ml 30 ml # Bowel Movements 0 0 Result Diagram: 07/27/16 0530 07/24/16 0600 Imaging Last Impressions Chest X-Ray 07/23/16 0500 Signed Impressions: Service Date/Time: Saturday, July 23, 2016 05:50 - CONCLUSION: Increasing consolidation in the right mid to right lower lung compared to the prior study. David Henderson MD Chest CT 07/19/16 0800 Signed Impressions: Service Date/Time: Tuesday, July 19, 2016 08:28 - CONCLUSION: 1. Reduction in size of the right pleural effusion with residual pleural effusion remaining part of it appears to be loculated. 2. Right lung base consolidation and slight left lung base atelectasis and/or infiltrate. 3. No significant change in pathological adenopathy within the mediastinum. Nitin Ling MD Chest Tube Insertion 07/12/16 0000 Signed Impressions: Service Date/Time: Tuesday, July 12, 2016 21:17 - CONCLUSION: Uncomplicated CT-guided thoracentesis. Paras Chang MD Objective Remarks GENERAL: This is a well-nourished, well-developed patient, in no apparent distress. CARDIOVASCULAR: Regular rate and rhythm without murmurs, gallops, or rubs. RESPIRATORY: decreased at right base. GASTROINTESTINAL: Abdomen soft, non-tender, nondistended. Normal active bowel sounds MUSCULOSKELETAL: Extremities without clubbing, cyanosis, or edema. NEURO: Alert & Oriented x4 to person, place, time, situation. Moves all ext x4 A/P Problem List: (1) Pleural effusion on right Status: Acute Plan: - comgmt with Pulm Med and thoracic surgery - Pt admitted with c/o productive cough and SOB x 2 weeks - Pt has a 40 yr smoking history - CT chest (07/12/16) showed enormous, loculated, right pleural effusion - Has 2 family members with lung ca - Pt given one dose of rocephin and azithromycin in the ER (07/12/16) - Pt started on zosyn (07/12/16 - present) - Pt underwent right thoracentesis with placement of right chest tube. The initial fluid was white and purelent in appearance. - pleural fluid analysis shows the fluid to be exudate - pleural fluid pathology --> no evidence of cancer - CXR (07/13/16) - right chest tube - decreased right pleural effusion with moderated loculated pleural effusion remaining - airspace consolidation at RML and RLL - pneumothorax - Pt underwent right lung decortication (07/22/16) with Dr. Elizabet Yang - appears to be empyema without evidence of malignancy - pathology (07/22/16) --> NO malignant cells, pleural with acute and chronically ulcerated surface, attached acute inflammatory exudate - Chest tube, 600ml output (07/24/16), 30ml (07/24/16), 34 (07/25/16), 50ml so far (07/26/16) - morphine ER 15mg BID - prn norco/dilaudid - transfused 2 units PRBCs (07/25/16) - hg 6.1 (07/24/16), 8.6 (07/25/16), 8.6 (07/26/16), 8.9 (07/27/16) - repeat CBC in AM - case d/w Dr. Elizabet Moore, Surgeon, (07/27/16) - Chest tube removed - will discharge pt to home 07/28/16 - Pt will need f/u PET CT to help r/o Pulmonary CA in 6 weeks. (2) DM2 (diabetes mellitus, type 2) Status: Acute Plan: - diet controlled - last HgA1C 6.2 (04/08/16) (3) HTN (hypertension) Status: Chronic Plan: - stable - norvasc (4) Bipolar disease, chronic Status: Chronic Plan: - stable - depakote, seroquel (5) Hyperlipemia Status: Chronic Plan: - continue statin Problem Qualifiers (1) DM2 (diabetes mellitus, type 2): Qualified Code: E11.9 - Type 2 diabetes mellitus without complication, without long-term current use of insulin (2) HTN (hypertension): Qualified Code: I10 - Essential hypertension (3) Hyperlipemia: Qualified Code: E78.5 - Hyperlipidemia, unspecified hyperlipidemia type Mauricio Rdz DO Jul 27, 2016 12:13
--- NOTE | 2016-07-27 18:15 | HHI.PR ---
Subjective Remarks 60 YOWM with Bipolar disorder,Pl effusion, s/p TPA had Decortication Feels better . No pain Good appetite. Chest tube removed Objective Vital Signs Vital Signs Date Time Temp Pulse Resp B/P Pulse Ox O2 Delivery O2 Flow Rate FiO2 07/27/16 16:00 98.6 77 20 120/61 97 07/27/16 12:00 98.0 75 16 92/51 97 07/27/16 11:50 95 Nasal Cannula 3.00 07/27/16 08:40 Nasal Cannula 3.00 07/27/16 08:40 89 07/27/16 08:00 97.8 83 16 138/72 95 07/27/16 04:00 97.6 69 20 107/56 97 07/27/16 00:00 97.5 72 20 106/68 97 07/26/16 20:00 97.7 76 20 119/62 97 07/26/16 20:00 Nasal Cannula 3.00 35 07/26/16 20:00 74 I/O 07/26/16 07/26/16 07/26/16 07/27/16 07/27/16 07/27/16 07:00 15:00 23:00 07:00 15:00 23:00 Intake Total 240 ml 960 ml 720 ml 720 ml 360 ml Output Total 1800 ml 975 ml 1520 ml 1080 ml 650 ml Balance -1560 ml -15 ml -800 ml -360 ml -290 ml Intake Oral 240 ml 960 ml 720 ml 720 ml 360 ml Output Urine Total 1750 ml 975 ml 1450 ml 1050 ml 650 ml Chest Tube Drainage Total 50 ml 70 ml 30 ml # Bowel Movements 0 0 0 0 Result Diagram: 07/27/16 0530 07/24/16 0600 Objective Remarks GENERAL: WBWN WM mild discomfort SKIN: Warm and dry. HEAD: Normocephalic. EYES: No scleral icterus. No injection or drainage. NECK: Supple, trachea midline. No JVD or lymphadenopathy. CARDIOVASCULAR: Regular rate and rhythm without murmurs, gallops, or rubs. RESPIRATORY: Breath sounds equal bilaterally. No accessory muscle use. Right chest tube draining GASTROINTESTINAL: Abdomen soft, non-tender, nondistended. MUSCULOSKELETAL: No cyanosis, or edema. BACK: Nontender without obvious deformity. No CVA tenderness. A/P Assessment and Plan Right pl effusion, s/p chest tube and TPA Atelactesis Lung infilt DM Bipolar disorder PLAN: Cont Abx Monitor BS. supplement 02 Agus Bro MD Jul 27, 2016 18:15
[2016-07-27] MEDS: DOCUSATE CALCIUM 240 MG CAP PO SCH (21:15)
[2016-07-27] MEDS: QUEtiapine FUMARATE 100 MG TAB PO SCH (21:16)
[2016-07-27] MEDS: PANTOPRAZOLE SOD 40 MG DELAYED RELEASE TAB PO SCH (21:16)
[2016-07-28] VITALS: BP 118/55; PULSE 79; RESP 18; TEMP 98.2; O2SAT 95
[2016-07-28] MEDS: HYDROmorphone HCL PF 2 MG/ML VIAL IV PUSH PRN ×3 (00:59→13:24)
[2016-07-28] MEDS: PIPERACIL-TAZO 3.375 GM PREMIX 50 ML IV SCH ×3 (01:00→13:17)
[2016-07-28 04:00] VITALS: BP 128/66; PULSE 74; RESP 18; TEMP 97.5; O2SAT 96
[2016-07-28] MEDS: ACETAMINOPHEN/HYDROcodone 325 MG/10 MG TAB PO PRN ×2 (04:10→10:17)
[2016-07-28] MEDS: MORPHINE SULFATE 15 MG CONTROLLED RELEASE TAB PO SCH ×3 (05:41→13:53)
[2016-07-28 07:58] VITALS: O2SAT 95
[2016-07-28 08:00] VITALS: BP 107/72; PULSE 74; RESP 18; TEMP 97.6; O2SAT 96
[2016-07-28 09:38] VITALS: PULSE 74
[2016-07-28] MEDS: ATORVASTATIN 10 MG TAB PO SCH (10:15)
[2016-07-28] MEDS: amLODIPine BESYLATE 5 MG TAB PO SCH (10:15)
[2016-07-28] MEDS: DIVALPROEX DR 500 MG TABEC PO SCH (10:15)
[2016-07-28] MEDS: SODIUM CHLORIDE 0.9% FLUSH 10 ML FLUSH IV FLUSH SCH (10:15)
[2016-07-28] MEDS: FAMOTIDINE 20 MG TAB PO SCH (10:16)
[2016-07-28 12:00] VITALS: BP 117/62; PULSE 79; RESP 18; TEMP 97.8; O2SAT 96
[2016-07-28] MEDS ORDERED: HYDR-3583 PO (14:12)
[2016-07-28] MEDS ORDERED: MORP1TAB24 PO (14:12)
[2016-07-28] MEDS ORDERED: AUGM875T PO (14:14)
--- NOTE | 2016-07-28 14:15 | HHI.DCPOC ---
Discharge Care Plan Diagnosis: (1) Pleural effusion on right (2) Pneumonia (3) DM2 (diabetes mellitus, type 2) (4) Bipolar disease, chronic (5) HTN (hypertension) Goals to Promote Your Health * To prevent worsening of your condition and complications * To maintain your health at the optimal level Directions to Meet Your Goals Take your medications as prescribed Follow your dietary instruction Follow activity as directed Keep your appointments as scheduled Take your immunizations and boosters as scheduled If your symptoms worsen call your PCP, if no PCP go to Urgent Care Center or Emergency Room Smoking is Dangerous to Your Health. Avoid second hand smoke Call the 24-hour hour crisis hotline for domestic abuse at Mauricio Rdz DO Jul 28, 2016 14:15
--- NOTE | 2016-07-28 14:21 | HHI.DS ---
Discharge Summary Admission Date Jul 12, 2016 at 18:54 Discharge Date: Jul 28, 2016 Admitting Diagnosis Sepsis, Large Rt Pleural Effusion, Pneumonia (1) Pleural effusion on right Diagnosis: Principal (2) DM2 (diabetes mellitus, type 2) Diagnosis: Secondary (3) HTN (hypertension) Diagnosis: Secondary (4) Bipolar disease, chronic (5) Hyperlipemia Diagnosis: Secondary Consultants Dr. Elizabet Moore, Thoracic Surgeon Dr. Agus Bro, Pulmonary Medicine Brief History Patient is a pleasant 60-year-old male with history of hypertension and diabetes who presented to the ER with complaint of her duct of cough and shortness of breath for 2 weeks. Patient complains of severe rib pain from prolonged coughing for the last 2 weeks. Patient complained of chills and night sweats. Outpatient chest x-ray at [facility] showed pleural effusion prompting referral to the [facility]. Patient denies any travel or recent sick contacts. CT scan of the chest (07/12/16) showed enormous, loculated, right pleural effusion. Also, showed mediastinal lymphadenopathy. I discussed the case with radiology upon admission. Patient underwent thoracentesis with placement of chest tube at right chest. Pleural fluid sent to laboratory for analysis and pathology. CBC/BMP: 07/27/16 0530 07/24/16 0600 Significant Findings Laboratory Tests Test 07/26/16 07/27/16 04:50 05:30 Red Blood Count 3.05 MIL/MM3 3.20 MIL/MM3 (4.50-5.90) (4.50-5.90) Hemoglobin 8.6 GM/DL 8.9 GM/DL (13.0-17.0) (13.0-17.0) Hematocrit 26.0 % 27.7 % (39.0-51.0) (39.0-51.0) Platelet Count 100 TH/MM3 138 TH/MM3 (150-450) (150-450) Monocytes (%) (Auto) 9.3 % (0.0-8.0) Eosinophils (%) (Auto) 4.7 % (0.0-4.0) Imaging Last Impressions Chest X-Ray 07/25/16 0500 Signed Impressions: Service Date/Time: June 05:14 - CONCLUSION: No significant interval change. David Henderson MD Chest CT 07/19/16 0800 Signed Impressions: Service Date/Time: Tuesday, July 19, 2016 08:28 - CONCLUSION: 1. Reduction in size of the right pleural effusion with residual pleural effusion remaining part of it appears to be loculated. 2. Right lung base consolidation and slight left lung base atelectasis and/or infiltrate. 3. No significant change in pathological adenopathy within the mediastinum. Nitin Ling MD Chest Tube Insertion 07/12/16 0000 Signed Impressions: Service Date/Time: Tuesday, July 12, 2016 21:17 - CONCLUSION: Uncomplicated CT-guided thoracentesis. Paras Chang MD PE at Discharge GENERAL: This is a well-nourished, well-developed patient, in no apparent distress. CARDIOVASCULAR: Regular rate and rhythm without murmurs, gallops, or rubs. RESPIRATORY: decreased at right base. GASTROINTESTINAL: Abdomen soft, non-tender, nondistended. Normal active bowel sounds MUSCULOSKELETAL: Extremities without clubbing, cyanosis, or edema. NEURO: Alert & Oriented x4 to person, place, time, situation. Moves all ext x4 Hospital Course (1) Pleural effusion on right Status: Acute Plan: - comgmt with Pulm Med and thoracic surgery - Pt admitted with c/o productive cough and SOB x 2 weeks - Pt has a 40 yr smoking history - CT chest (07/12/16) showed enormous, loculated, right pleural effusion - Has 2 family members with lung ca - Pt given one dose of rocephin and azithromycin in the ER (07/12/16) - Pt started on zosyn (07/12/16 - 07/28/16) - Pt underwent right thoracentesis with placement of right chest tube. The initial fluid was white and purelent in appearance. - pleural fluid analysis shows the fluid to be exudate - pleural fluid pathology --> no evidence of cancer - CXR (07/13/16) - right chest tube - decreased right pleural effusion with moderated loculated pleural effusion remaining - airspace consolidation at RML and RLL - pneumothorax - Pt underwent right lung decortication (07/22/16) with Dr. Elizabet Yang - appears to be empyema without evidence of malignancy - pathology (07/22/16) --> NO malignant cells, pleural with acute and chronically ulcerated surface, attached acute inflammatory exudate - Chest tube, 600ml output (07/24/16), 30ml (07/24/16), 34 (07/25/16), 50ml () - morphine ER 15mg BID - norco prn - transfused 2 units PRBCs (07/25/16) - hg 6.1 (07/24/16), 8.6 (07/25/16), 8.6 (07/26/16), 8.9 (07/27/16) - case d/w Dr. Elizabet Moore, Surgeon, (07/27/16) - Chest tube removed - will discharge pt to home 07/28/16 - Pt will need f/u PET CT to help r/o Pulmonary CA in 6 weeks. - Case d/w Dr. Bro (07/28/16) - Change abx to augmentin 875/125mg BID x 5d - f/u with Dr. Steiner in 1 week - f/u with Dr. Moore in 2 weeks - f/u with Dr. Bro in 3 weeks - see discharge orders - Pt offered HHC/ home PT. Pt declined services. (2) DM2 (diabetes mellitus, type 2) Status: Acute Plan: - diet controlled - last HgA1C 6.2 (04/08/16) (3) HTN (hypertension) Status: Chronic Plan: - stable - norvasc (4) Bipolar disease, chronic Status: Chronic Plan: - stable - depakote, seroquel (5) Hyperlipemia Status: Chronic Plan: - continue statin Pt Condition on Discharge: Stable Discharge Disposition: Discharge Home Discharge Instructions DIET: Follow Instructions for: Heart Healthy Diet Activities you can perform: Regular-No Restrictions Follow up Referrals: PCP Follow-up - [address] Cheo Steiner Pulmonology - 3 Weeks with Agus Bro MD Surgical - [address] Elizabet Mooer New Medications: Amoxicillin-Clavulanate (Augmentin) 875-125 mg Tab 875 MG PO BID not for use in CrCl <30 ml/min. Infection #10 Ref 0 TAB Hydrocodone-Acetaminophen (Hydrocodone-Acetaminophen) 10-325 mg Tab 1 TAB PO Q6H PRN PAIN SCALE 1 TO 10 #30 Ref 0 TAB Morphine ER (Morphine ER) 15 Mg Tab 15 MG PO Q8HR recent surgery #42 Ref 0 TAB Continued Medications: Albuterol 18 GM Inh (Ventolin Hfa 18 GM Inh) 90 Mcg/Act Aer 1 PUFF INH Q4H PRN SHORTNESS OF BREATH #1 Ref 0 INHALER Amlodipine (Amlodipine) 5 Mg Tab 5 MG PO DAILY Blood Pressure Management #[address] Ref [address] (Depakote DR) 500 Mg Tabdr 1000 MG PO DAILY Control Seizures #60 Ref 0 TAB Quetiapine (Seroquel) 300 Mg Tab 300 MG PO HS #30 Ref 0 TAB Ranitidine (Ranitidine) 150 Mg Tab 150 MG PO BID Heartburn Management #60 Ref 0 TAB Rosuvastatin (Rosuvastatin) 5 Mg Tab 5 MG PO DAILY Cholesterol Management #30 Ref 0 TAB Sildenafil (Viagra) 100 Mg Tab 100 MG PO DAILY PRN ERECTILE DYSFUNCTION Ref 0 TAB Discontinued Medications: Clobetasol Emulsion Topical (Clobetasol Emulsion Topical) 0.05% Foam 1 APPLIC TOPICAL BID #50 Ref 0 GM Hydrocodone-Acetaminophen (Hydrocodone-Acetaminophen) 10-325 mg Tab 1 TAB PO Q4H PRN PAIN Ref 0 TAB Ibuprofen (Ibuprofen) 400 Mg Tab 400 MG PO Q6H PRN PAIN SCALE 1 TO 3 Ref 0 TAB Mauricio Rdz DO Jul 28, 2016 14:21
[2016-07-28] MEDS ORDERED: DOCU1CAP25 PO (14:24)
--- NOTE | 2016-07-28 16:21 | HHI.PR ---
Subjective Remarks 60 YOWM with Bipolar disorder,Pl effusion, s/p TPA had Decortication Good appetite. Feels better, mild pain Objective Vital Signs Vital Signs Date Time Temp Pulse Resp B/P Pulse Ox O2 Delivery O2 Flow Rate FiO2 07/28/16 12:00 97.8 79 18 117/62 96 07/28/16 09:38 74 07/28/16 08:00 97.6 74 18 107/72 96 07/28/16 07:58 95 Nasal Cannula 2.00 07/28/16 04:00 97.5 74 18 128/66 96 07/28/16 00:00 98.2 79 18 118/55 95 07/27/16 21:15 Nasal Cannula 2.00 07/27/16 20:01 81 07/27/16 20:01 81 07/27/16 20:00 98.0 73 18 130/63 99 I/O 07/27/16 07/27/16 07/27/16 07/28/16 07/28/16 07/28/16 07:00 15:00 23:00 07:00 15:00 23:00 Intake Total 720 ml 360 ml 560 ml 440 ml Output Total 1080 ml 650 ml 1250 ml 1050 ml Balance -360 ml -290 ml -690 ml -610 ml Intake Oral 720 ml 360 ml 460 ml 240 ml IV Total 100 ml 200 ml Output Urine Total 1050 ml 650 ml 1250 ml 1050 ml Chest Tube Drainage Total 30 ml # Bowel Movements 0 0 0 0 Result Diagram: 07/27/16 0530 07/24/16 0600 Objective Remarks GENERAL: WBWN WM mild discomfort SKIN: Warm and dry. HEAD: Normocephalic. EYES: No scleral icterus. No injection or drainage. NECK: Supple, trachea midline. No JVD or lymphadenopathy. CARDIOVASCULAR: Regular rate and rhythm without murmurs, gallops, or rubs. RESPIRATORY: Breath sounds equal bilaterally. No accessory muscle use. Right chest tube draining GASTROINTESTINAL: Abdomen soft, non-tender, nondistended. MUSCULOSKELETAL: No cyanosis, or edema. BACK: Nontender without obvious deformity. No CVA tenderness. A/P Assessment and Plan Right pl effusion, s/p chest tube and TPA Atelactesis Lung infilt DM Bipolar disorder PLAN: Cont Abx Monitor BS. supplement 02 DC Plans underway. Agus Bro MD Jul 28, 2016 16:20
== END 2016-07-28 16:19 | disposition home or self-care (01) | DRG 163 ==
LOC: NEPE 13:54 → NEDA 18:54 → N04A 07-13 00:38
PROVIDERS: ADMIT Hospitalist; ATTEND Hospitalist
PROC: 0W9930Z Drainage of Right Pleural Cavity with Drainage Device, Percutaneous Approach (ICD-10-PCS; 2016-07-12)
PROC: 3E0T3CZ (ICD-10-PCS; 2016-07-22)
PROC: 0BBN0ZZ Excision of Right Pleura, Open Approach (ICD-10-PCS; principal; 2016-07-22 12:13)
PROC: 30233N1 Transfusion of Nonautologous Red Blood Cells into Peripheral Vein, Percutaneous Approach (ICD-10-PCS; 2016-07-24)
DX: J86.9 Pyothorax without fistula (principal); J18.9 Pneumonia, unspecified organism; J93.9 Pneumothorax, unspecified; J44.0 Chronic obstructive pulmonary disease with (acute) lower respiratory infection; E55.9 Vitamin D deficiency, unspecified; I10 Essential (primary) hypertension; E11.9 Type 2 diabetes mellitus without complications; D50.0 Iron deficiency anemia secondary to blood loss (chronic); E78.5 Hyperlipidemia, unspecified; E66.9 Obesity, unspecified; R59.0 Localized enlarged lymph nodes; M54.5 Low back pain; E87.6 Hypokalemia; F31.70 Bipolar disorder, currently in remission, most recent episode unspecified; Z68.29 Body mass index [BMI] 29.0-29.9, adult; Z80.1 Family history of malignant neoplasm of trachea, bronchus and lung; Z86.19 Personal history of other infectious and parasitic diseases; Z87.891 Personal history of nicotine dependence
CPT/HCPCS: 32557; 36430; 71010; 71020; 71250; 71260; 76937; 80048; 80053; 81001; 82150; 82550; 82945; 82948; 83605; 83615; 83735; 83880; 83986; 84157; 84484; 85007; 85025; 85027; 85610; 85730; 86850; 86900; 86901; 86920; 87015; 87040; 87070; 87102; 87116; 87205; 87206; 87641; 87804; 88112; 88305; 89051; 93005; 94150; 99152; C1729; C1769; C9290; J0131; J0456; J0690; J0696; J1100; J1170; J1885; J1940; J2175; J2250; J2270; J2405; J2543; J2710; J2997; J3010; J7030; J7050; P9016; P9040; Q9967

== ENCOUNTER 2016-11-29 21:03 | Inpatient (IN) | payer MEDICARE, OTHER ==
[~2016-11-29] VITALS: Ht 177.8 cm; Wt 89.7 kg
[~2016-11-29 21:03] MED LIST changes: +AMLO5TAB2 PO; +AUGM875T PO; +DEPA500T PO; +DOCU1CAP25 PO; -EXTR500C PO; +HYDR-3583 PO; +MORP1TAB24 PO; +RANI150T PO; +ROSU1TAB4 PO; +SERO300T PO; -TAB-TAB PO; -TEMA15CA PO; -TESTOSTERONE GEL TOP; -TRAM50TA PO; +VENTAER INH; +VIAG100T PO; -VITA400D PO
[2016-11-29 21:04] VITALS: BP 181/88; PULSE 97; RESP 16; TEMP 99; O2SAT 95
[2016-11-29 23:39] VITALS: BP 155/68; PULSE 80; RESP 18; O2SAT 95
[2016-11-30] VITALS (12 sets, daily range): BP systolic 95–143; BP diastolic 55–75; PULSE 67–80; RESP 16–18; TEMP 96.2–97.9; O2SAT 93–99
[2016-11-30] MEDS ORDERED: SODIUM CHLORIDE 0.9% FLUSH 10 ML FLUSH IVF PRN ×2 (00:30→02:30)
--- NOTE | 2016-11-30 01:03 | RADRPT ---
EXAM DATE/TIME: 11/30/2016 00:40 [facility] COMPARISON: CT THORAX W CONTRAST, July 19, 2016, 8:28. INDICATIONS : Right lung pleural effusion; shortness of breath. MEDICAL HISTORY : Hypercholesterolemia. Hypertension Pleural effusion, pneumonia. SURGICAL HISTORY : None. ENCOUNTER: Initial ACUITY: 1 day PAIN SCORE: 4/10 LOCATION: Bilateral chest FINDINGS: There is a large masslike density in the lower right chest, possibly loculated fluid in the pleural s pace versus lung abnormality. There is free flowing fluid at the right costophrenic angle. Left lung clear. Tortuous aorta. CONCLUSION: 1. Large masslike density in the right chest, possibly loculated fluid. Finding would be better evalu ated with chest CT with contrast. Left lung clear. Tutu Stapleton MD on November 30, 2016 at 0:59 Board Certified Radiologist. This report was verified electronically.
[2016-11-30 01:05] LABS: AUTOMATED NEUTROPHIL # 3.3 TH/MM3 (1.8-7.7); BASOPHIL # 0.1 TH/MM3 (0-0.2); BASOPHIL % 0.7 % (0.0-2.0); EOSINOPHIL # 0.4 TH/MM3 (0-0.4); EOSINOPHIL % 5.2 % (0.0-4.0); HEMATOCRIT 41.8 % (39.0-51.0); HEMO FLAGS DIFF FINAL; LYMPH % 38.7 % (9.0-44.0); LYMPHOCYTE # 2.8 TH/MM3 (1.0-4.8); MEAN CELL VOLUME 85.1 FL (80.0-100.0); MEAN CORPUSCULAR HEMOGLOBIN 26.9 PG (27.0-34.0); MEAN CORPUSCULAR HGB CONC 31.7 % (32.0-36.0); NEUT % 46.4 % (16.0-70.0); PLATELET COUNT 319 TH/MM3 (150-450); RED BLOOD COUNT 4.91 MIL/MM3 (4.50-5.90); RED CELL DISTRIBUTION WIDTH 18.5 % (11.6-17.2); WHITE BLOOD COUNT 7.1 TH/MM3 (4.0-11.0)
[2016-11-30 01:31] LABS: ALT (GPT) 16 U/L (12-78); ANION GAP 6 MEQ/L (5-15); APTT (PATIENT) 30.6 SEC (24.3-30.1); AST (GOT) 10 U/L (15-37); BICARBONATE 35.3 MEQ/L (21.0-32.0); BLOOD UREA NITROGEN 8 MG/DL (7-18); CHLORIDE 101 MEQ/L (98-107); GLOMERULAR FILTRATION RATE 132 ML/MIN (>89); INTERNATIONAL NORMALIZED RATIO 0.9 RATIO; MAGNESIUM 1.8 MG/DL (1.5-2.5); POTASSIUM 3.8 MEQ/L (3.5-5.1); PROTHROMBIN TIME - PATIENT 10.4 SEC (9.8-11.6); SODIUM (NA) 142 MEQ/L (136-145)
[2016-11-30 01:35] LABS: ALKALINE PHOSPHATASE 85 U/L (45-117); TOTAL BILIRUBIN ADULT 0.2 MG/DL (0.2-1.0)
[2016-11-30 01:37] LABS: CREATINE KINASE 45 U/L (39-308)
--- NOTE | 2016-11-30 02:10 | PD ---
HPI Chief Complaint: Respiratory Symptoms Time Seen by Provider: 00:23 Travel History International Travel<30 days: No Contact w/Intl Traveler<30days: No Traveled to known affect area: No History of Present Illness HPI 61-year-old male presents to the emergency department at the recommendation of his primary care provider for evaluation of recurrent pleural effusion. Patient was admitted in June 2016 with a large pleural effusion and empyema underwent chest tube placement and then subsequent pleurodesis and decortication of the right hemithorax. Patient has been doing well and has been receiving outpatient chest x-rays and showed small effusion and yesterday was seen by his primary care provider who sent the patient for CT. Imaging studies revealed a large area of fluid collection for recurrent accumulation of pleural effusion and patient was sent immediately to the emergency department reportedly for admission and possible drainage. Patient denies any fever or chills. Patient has had some mild shortness of breath but no acute shortness of breath or acutely worsening shortness of breath. Patient also denies any hemoptysis. No report of weight loss or night sweats. Patient also denies any chest pain at this time. Patient is unable to identify exacerbating or alleviating factors. PFSH Past Medical History Narrative Medical Bipolar disorder CVA dyslipidemia pleural effusion empyema pleurodesis decortication right hemithorax no tobaccoism nursing notes reviewed Asthma: No Autoimmune Disease: No Bipolar Disorder: Yes Cancer: No Cardiovascular Problems: Yes High Cholesterol: Yes COPD: No Cerebrovascular Accident: Yes (TIA) Diabetes: No Diminished Hearing: No Endocrine: No Genitourinary: Yes (ELEVATED PSA) Hepatitis: Yes (HEP C) Hiatal Hernia: No Hypertension: Yes Immune Disorder: No Medical other: Yes (DELAYED PRESSURE URTICARIA) Musculoskeletal: No Neurologic: No Psychiatric: No Reproductive: No Respiratory: Yes (plurial effusion right lung) Sleep Apnea: No Thyroid Disease: No Past Surgical History AICD: No Arteriovenous Shunt: No Insulin Pump: No Joint Replacement: No Pacemaker: No Other Surgery: Yes (right side plural effusion sx) Social History Alcohol Use: No Tobacco Use: No Substance Use: No Allergies-Medications (Allergen,Severity, Reaction): Coded Allergies: No Known Allergies (Unverified , 11/29/16) Reported Meds & Prescriptions Reported Meds & Active Scripts Active Stool Softener (Docusate Calcium) 240 Mg Cap 240 Mg PO HS Reported Ventolin Hfa 18 GM Inh (Albuterol Sulfate) 90 Mcg/Act Aer 1 Puff INH Q4H PRN Rosuvastatin (Rosuvastatin Calcium) 5 Mg Tab 5 Mg PO HS Ranitidine (Ranitidine HCl) 150 Mg Tab 150 Mg PO HS Seroquel (Quetiapine Fumarate) 300 Mg Tab 300 Mg PO HS Depakote DR (Divalproex Sodium) 500 Mg Tabdr 1,000 Mg PO HS Amlodipine (Amlodipine Besylate) 5 Mg Tab 5 Mg PO HS Review of Systems Except as stated in HPI: all other systems reviewed are Neg General / Constitutional: No: Fever, Chills HENT: No: Congestion Cardiovascular: No: Chest Pain or Discomfort Respiratory: No: Shortness of Breath Gastrointestinal: No: Abdominal Pain Genitourinary: No: Flank Pain Musculoskeletal: No: Myalgias, Arthralgias Skin: No Rash Neurologic: No: Weakness Psychiatric: No: Anxiety Endocrine: No: Heat Intolerance Hematologic/Lymphatic: No: Easy Bruising Physical Exam Narrative GENERAL: Well-developed well-nourished male in no acute distress no respiratory distress SKIN: Warm and dry. HEAD: Normocephalic. EYES: No scleral icterus. No injection or drainage. NECK: Supple, trachea midline. No JVD or lymphadenopathy. CARDIOVASCULAR: Regular rate and rhythm without murmurs, gallops, or rubs. RESPIRATORY: Breath sounds equal bilaterally right base diminished. No accessory muscle use. GASTROINTESTINAL: Abdomen soft, non-tender, nondistended. MUSCULOSKELETAL: No cyanosis, or edema. BACK: Nontender without obvious deformity. No CVA tenderness. Data Data Last Documented VS Vital Signs Date Time Temp Pulse Resp B/P (MAP) Pulse Ox O2 Delivery O2 Flow Rate FiO2 11/30/16 02:07 67 18 106/61 (76) 94 Nasal Cannula 2.00 11/29/16 21:04 99.0 Orders Orders Complete Blood Count With Diff (11/30/16 00:23) Comprehensive Metabolic Panel (11/30/16 00:23) B-Type Natriuretic Peptide (11/30/16 00:23) Act Partial Throm Time (Ptt) (11/30/16 00:23) Prothrombin Time / Inr (Pt) (11/30/16 00:23) Magnesium (Mg) (11/30/16 00:23) Ckmb (Isoenzyme) Profile (11/30/16 00:23) Troponin I (11/30/16 00:23) Blood Culture (11/30/16 00:23) Iv Access Insert/Monitor (11/30/16 00:23) Electrocardiogram (11/30/16 00:23) Ecg Monitoring (11/30/16 00:23) Oximetry (11/30/16 00:23) Oxygen Administration (11/30/16 00:23) Chest, Single Ap (11/30/16 00:23) Sodium Chloride 0.9% Flush (Ns Flush) (11/30/16 00:30) Lactic Acid (11/30/16 00:23) Piperacil-Tazo 4.5 Gm Premix (Zosyn 4.5 (11/30/16 02:15) Admit Order (Ed Use Only) (11/30/16 ) Tile [place] Marble Installer / Telemetry PJ.Q8H (11/30/16 02:22) Vital Signs (Adult) Q4H (11/30/16 02:22) Activity Oob With Assistance (11/30/16 02:22) ^ Saline Lock (11/30/16 02:22) Resp Oxygen Kermit C Titrat 1-4 L (11/30/16 ) Notify Dr: Other (11/30/16 02:22) Ondansetron Inj (Zofran Inj) (11/30/16 02:30) Sodium Chloride 0.9% Flush (Ns Flush) (11/30/16 09:00) Sodium Chloride 0.9% Flush (Ns Flush) (11/30/16 02:30) ^ For Further Orders (11/30/16 02:22) Labs Laboratory Tests Test 11/30/16 00:40 White Blood Count 7.1 TH/MM3 Red Blood Count 4.91 MIL/MM3 Hemoglobin 13.2 GM/DL Hematocrit 41.8 % Mean Corpuscular Volume 85.1 FL Mean Corpuscular Hemoglobin 26.9 PG Mean Corpuscular Hemoglobin Concent 31.7 % Red Cell Distribution Width 18.5 % Platelet Count 319 TH/MM3 Mean Platelet Volume 8.1 FL Neutrophils (%) (Auto) 46.4 % Lymphocytes (%) (Auto) 38.7 % Monocytes (%) (Auto) 9.0 % Eosinophils (%) (Auto) 5.2 % Basophils (%) (Auto) 0.7 % Neutrophils # (Auto) 3.3 TH/MM3 Lymphocytes # (Auto) 2.8 TH/MM3 Monocytes # (Auto) 0.6 TH/MM3 Eosinophils # (Auto) 0.4 TH/MM3 Basophils # (Auto) 0.1 TH/MM3 CBC Comment DIFF FINAL Differential Comment Prothrombin Time 10.4 SEC Prothromb Time International Ratio 0.9 RATIO Activated Partial Thromboplast Time 30.6 SEC Blood Urea Nitrogen 8 MG/DL Creatinine 0.62 MG/DL Random Glucose 112 MG/DL Total Protein 8.0 GM/DL Albumin 3.1 GM/DL Calcium Level 9.0 MG/DL Magnesium Level 1.8 MG/DL Alkaline Phosphatase 85 U/L Aspartate Amino Transf (AST/SGOT) 10 U/L Alanine Aminotransferase (ALT/SGPT) 16 U/L Total Bilirubin 0.2 MG/DL Sodium Level 142 MEQ/L Potassium Level 3.8 MEQ/L Chloride Level 101 MEQ/L Carbon Dioxide Level 35.3 MEQ/L Anion Gap 6 MEQ/L Estimat Glomerular Filtration Rate 132 ML/MIN Lactic Acid Level 0.7 mmol/L Total Creatine Kinase 45 U/L Troponin I LESS THAN 0.02 NG/ML B-Type Natriuretic Peptide 27 PG/ML MDM Medical Decision Making Medical Screen Exam Complete: Yes Emergency Medical Condition: Yes Medical Record Reviewed: Yes Interpretation(s) Last Impressions Chest X-Ray 11/30/16 0023 Signed Impressions: Service Date/Time: Wednesday, November 30, 2016 00:40 - CONCLUSION: 1. Large masslike density in the right chest, possibly loculated fluid. Finding would be better evaluated with chest CT with contrast. Left lung clear. Tutu Stapleton MD Chest CT 11/30/16 0000 Signed Impressions: Service Date/Time: Wednesday, November 30, 2016 10:36 - CONCLUSION: 1. Loculated appearing pleural effusion versus empyema with split pleural sign and compressive atelectasis right lower lobe. 2. Mediastinal and right hilar adenopathy, and patchy nodular consolidation in the right upper lobe. Santo Calhoun MD CBC & BMP Diagram 11/30/16 00:40 Total Protein 8.0, Albumin 3.1 L, Calcium Level 9.0, Magnesium Level 1.8, Alkaline Phosphatase 85, Aspartate Amino Transf (AST/SGOT) 10 L, Alanine Aminotransferase (ALT/SGPT) 16, Total Bilirubin 0.2 Vital Signs Date Time Temp Pulse Resp B/P (MAP) Pulse Ox O2 Delivery O2 Flow Rate FiO2 11/30/16 02:07 67 18 106/61 (76) 94 Nasal Cannula 2.00 11/30/16 00:49 78 18 125/63 (83) 93 Nasal Cannula 2.00 11/30/16 00:48 93 Nasal Cannula 2.00 11/29/16 23:39 80 18 155/68 (97) 95 11/29/16 21:04 99.0 97 16 181/88 (119) 95 Room Air Differential Diagnosis Recurrent pleural effusion, empyema, mass Narrative Course patient with known history of pleural effusion requiring chest tube and hemithorax decortication presents with history of abnormal CT today and sent to the emergency department for admission for intervention regarding thoracentesis Patient's case discussed with on-call admitting physician for [facility] will admit to Dr. Rdz Physician Communication Physician Communication discussed with Dr Cortez Diagnosis Primary Impression: Recurrent pleural effusion on right Scripts Hydrocodone-Acetaminophen (Hydrocodone-Acetaminophen) 10-325 mg Tab 1 TAB PO Q6H Y for pain, #15 TAB 0 Refills Prov: aMuricio Rdz DO 12/01/16 Natalie Harrison MD Nov 30, 2016 02:10
[2016-11-30] MEDS ORDERED: PIPERACIL-TAZO 4.5 GM PREMIX 100 ML IV ONE (02:15)
[2016-11-30] MEDS ORDERED: ONDANSETRON HCL 4 MG/2 ML VIAL IV PRN (02:30)
--- NOTE | 2016-11-30 09:21 | EKG ---
Date Performed: 11/29/2016 Time Performed: 23:42:16 PTAGE: 61 years EKG: Sinus rhythm INCOMPLETE RIGHT BUNDLE BRANCH BLOCK SEPTAL MYOCARDIAL INFARCTION ABNORMAL ECG PREVIOUS TRACING : 07/22/2016 08.02 DOCTOR: Bruce Melo Interpretating Date/Time 11/30/2016 09:19:41
[2016-11-30] MEDS: SODIUM CHLORIDE 0.9% FLUSH 10 ML FLUSH IV FLUSH SCH ×2 (09:26→20:30)
[2016-11-30] MEDS ORDERED: IOHEXOL 350 MG/ML 10 ML VIAL (for RAD DIAG) IVCONTRAST ONE (10:41)
[2016-11-30] MEDS ORDERED: DEXTROSE 50% IN WATER 50 ML VIAL(D50) IV PRN (11:00)
[2016-11-30] MEDS ORDERED: INSULIN ASPART SUPPLEMENTAL SCALE SQ SCH (11:00)
[2016-11-30] MEDS ORDERED: GLUCAGON 1 MG/ML VIAL OTHER PRN (11:00)
--- NOTE | 2016-11-30 11:00 | HHI.HP ---
HPI Service [facility] Hospitalists Primary Care Physician Sidney Steiner D.O. Admission Diagnosis Large recurrent pleural effusion Chief Complaint: Shortness of breath Travel History International Travel<30 Days: No Contact w/Intl Traveler <30 Da: No Traveled to Known Affected Are: No History of Present Illness This is a 61 male patient with past medical history is hypertension, diabetes mellitus, hyperlipidemia, obesity, bipolar disorder, chronic lumbar pain and vitamin D deficiency. Patient was recently treated June 2016 for a sepsis with a large right pleural effusion and pneumonia. Patient underwent right thoracotomy with decortication on 07/22/2016. Patient returned to the emergency department under direction of his outpatient MD with complaints of shortness of breath. Patient reports that since he was discharged in June of 2016 he has not felt himself. Over the last 2 weeks patient has had episodes of short of breath associated with diaphoresis and nausea after minimal exertion. Latest episode was last night after taking a shower preparing to come to the hospital. Patient also reports right sided chest pain worse with taking a deep breath. Patient denies fevers or chills. Review of Systems Constitutional: COMPLAINS OF: Fatigue, DENIES: Fever, Chills Respiratory: COMPLAINS OF: Shortness of breath, DENIES: Cough, Sputum production Cardiovascular: COMPLAINS OF: Dyspnea on Exertion, DENIES: Chest pain, Palpitations Gastrointestinal: COMPLAINS OF: Constipation, DENIES: Abdominal pain, Diarrhea Neurologic: DENIES: Abnormal gait, Headache, Localized weakness Psychiatric: COMPLAINS OF: History of Bipolar Past Family Social History Past Medical History hypertension, pre diabetes mellitus, hyperlipidemia, obesity, bipolar disorder , chronic lumbar pain and vitamin D deficiency. Past Surgical History 07/22/2016 right thoracotomy with decortication Reported Medications Stool Softener (Docusate Calcium) 240 Mg Cap 240 Mg PO HS Hydrocodone-Acetaminophen 10-325 mg Tab 1 Tab PO Q6H PRN Ventolin Hfa 18 GM Inh (Albuterol Sulfate) 90 Mcg/Act Aer 1 Puff INH Q4H PRN Rosuvastatin (Rosuvastatin Calcium) 5 Mg Tab 5 Mg PO HS Ranitidine (Ranitidine HCl) 150 Mg Tab 150 Mg PO HS Seroquel (Quetiapine Fumarate) 300 Mg Tab 300 Mg PO HS Depakote DR (Divalproex Sodium) 500 Mg Tabdr 1,000 Mg PO HS Amlodipine (Amlodipine Besylate) 5 Mg Tab 5 Mg PO HS Allergies: Coded Allergies: No Known Allergies (Unverified , 11/29/16) Active Ordered Medications Current Medications Medications (Trade) Dose Ordered Sig/Jeff Route Start Time Stop Time Status Last Admin (Zofran Inj) 4 mg Q6H PRN IV 11/30/16 02:30 (NS Flush) 2 ml BID IV FLUSH 11/30/16 09:00 11/30/16 09:26 (NS Flush) 2 ml UNSCH PRN IVF 11/30/16 02:30 (Pneumovax-23 Inj) 25 mcg ONCE ONCE IM 12/01/16 10:00 12/01/16 10:01 Family History father had oral pharyngeal cancer Social History Patient is on disability Former smoker 40 year smoking history quit 4 years ago Rare EtOH use Denies illicit drug use Physical Exam Vital Signs Vital Signs Date Time Temp Pulse Resp B/P (MAP) Pulse Ox O2 Delivery O2 Flow Rate FiO2 11/30/16 08:00 97.0 69 17 95/55 (68) 94 11/30/16 06:33 96.3 77 16 102/60 (74) 99 11/30/16 06:00 75 18 120/63 (82) 93 Nasal Cannula 2.00 11/30/16 02:28 95 Nasal Cannula 2.00 11/30/16 02:07 67 18 106/61 (76) 94 Nasal Cannula 2.00 11/30/16 00:49 78 18 125/63 (83) 93 Nasal Cannula 2.00 11/30/16 00:48 93 Nasal Cannula 2.00 11/29/16 23:39 80 18 155/68 (97) 95 11/29/16 21:04 99.0 97 16 181/88 (119) 95 Room Air Physical Exam GENERAL: This is a well-nourished, well-developed patient, in no apparent distress. SKIN: No rashes, ecchymoses or lesions. Cool and dry. HEAD: Atraumatic. Normocephalic. No temporal or scalp tenderness. EYES:Extraocular motions intact. No scleral icterus. No injection or drainage. CARDIOVASCULAR: Regular rate and rhythm without murmurs, gallops, or rubs. RESPIRATORY: diminished RLL GASTROINTESTINAL: Abdomen soft, non-tender, nondistended. No hepato-splenomegaly , or palpable masses. No guarding. MUSCULOSKELETAL: Extremities without clubbing, cyanosis, or edema. No joint tenderness, effusion, or edema noted. No calf tenderness. Negative Homans sign bilaterally. NEUROLOGICAL: Awake and alert. No focal deficits. Motor and sensory grossly within normal limits. Five out of 5 muscle strength in all muscle groups. Normal speech. Laboratory Laboratory Tests Test 11/30/16 00:40 White Blood Count 7.1 Red Blood Count 4.91 Hemoglobin 13.2 Hematocrit 41.8 Mean Corpuscular Volume 85.1 Mean Corpuscular Hemoglobin 26.9 Mean Corpuscular Hemoglobin Concent 31.7 Red Cell Distribution Width 18.5 Platelet Count 319 Mean Platelet Volume 8.1 Neutrophils (%) (Auto) 46.4 Lymphocytes (%) (Auto) 38.7 Monocytes (%) (Auto) 9.0 Eosinophils (%) (Auto) 5.2 Basophils (%) (Auto) 0.7 Neutrophils # (Auto) 3.3 Lymphocytes # (Auto) 2.8 Monocytes # (Auto) 0.6 Eosinophils # (Auto) 0.4 Basophils # (Auto) 0.1 CBC Comment DIFF FINAL Differential Comment Prothrombin Time 10.4 Prothromb Time International Ratio 0.9 Activated Partial Thromboplast Time 30.6 Blood Urea Nitrogen 8 Creatinine 0.62 Random Glucose 112 Total Protein 8.0 Albumin 3.1 Calcium Level 9.0 Magnesium Level 1.8 Alkaline Phosphatase 85 Aspartate Amino Transf (AST/SGOT) 10 Alanine Aminotransferase (ALT/SGPT) 16 Total Bilirubin 0.2 Sodium Level 142 Potassium Level 3.8 Chloride Level 101 Carbon Dioxide Level 35.3 Anion Gap 6 Estimat Glomerular Filtration Rate 132 Lactic Acid Level 0.7 Total Creatine Kinase 45 Troponin I LESS THAN 0.02 B-Type Natriuretic Peptide 27 Date/Time Source Procedure Growth Status 11/30/16 00:45 Blood Peripheral Aerobic Blood Culture Pending Received 11/30/16 00:45 Blood Peripheral Anaerobic Blood Culture Pending Received Result Diagram: 11/30/16 0040 11/30/16 0040 Imaging Last Impressions Chest X-Ray 11/30/16 0023 Signed Impressions: Service Date/Time: Wednesday, November 30, 2016 00:40 - CONCLUSION: 1. Large masslike density in the right chest, possibly loculated fluid. Finding would be better evaluated with chest CT with contrast. Left lung clear. Tutu Stapleton MD Chest CT 11/30/16 0000 Signed Impressions: Service Date/Time: Wednesday, November 30, 2016 10:36 - CONCLUSION: 1. Loculated appearing pleural effusion versus empyema with split pleural sign and compressive atelectasis right lower lobe. 2. Mediastinal and right hilar adenopathy, and patchy nodular consolidation in the right upper lobe. MD Oscar Osborn VTE Risk Assessment Caprini VTE Risk Assessment: Mod/High Risk (score >= 2) Caprini Risk Assessment Model Point Value = 1 Point Value = 2 Point Value = 3 Point Value = 5 Age 41-60 Minor surgery BMI > 25 kg/m2 Swollen legs Varicose veins or History of unexplained or recurrent spontaneous Oral contraceptives or hormone replacement Sepsis (< 1 month) Serious lung disease, including pneumonia (< 1 month) Abnormal pulmonary function Acute myocardial infarction Congestive heart failure (< 1 month) History of inflammatory bowel disease Medical patient at bed rest Age 61-74 Arthroscopic surgery Major open surgery (> 45 min) Laparoscopic surgery (> 45 min) Malignancy Confined to bed (> 72 hours) Immobilizing plaster cast Central venous access Age >= 75 History of VTE Family history of VTE Factor V Leiden Prothrombin [id number] Lupus anticoagulant Anticardiolipin antibodies Elevated serum homocysteine Heparin-induced thrombocytopenia Other congenital or acquired thrombophilia Stroke (< 1 month) Elective arthroplasty Hip, pelvis, or leg fracture Acute spinal cord injury (< 1 month) Prophylaxis Regimen Total Risk Factor Score Risk Level Prophylaxis Regimen 0-1 Low Early ambulation 2 Moderate Order ONE of the following: *Sequential Compression Device (SCD) *Heparin 5000 units SQ BID 3-4 Higher Order ONE of the following medications: *Heparin 5000 units SQ TID *Enoxaparin/Lovenox 40 mg SQ daily (WT < 150 kg, CrCl > 30 mL/min) *Enoxaparin/Lovenox 30 mg SQ daily (WT < 150 kg, CrCl > 10-29 mL/min) *Enoxaparin/Lovenox 30 mg SQ BID (WT < 150 kg, CrCl > 30 mL/min) AND/OR *Sequential Compression Device (SCD) 5 or more Highest Order ONE of the following medications: *Heparin 5000 units SQ TID (Preferred with Epidurals) *Enoxaparin/Lovenox 40 mg SQ daily (WT < 150 kg, CrCl > 30 mL/min) *Enoxaparin/Lovenox 30 mg SQ daily (WT < 150 kg, CrCl > 10-29 mL/min) *Enoxaparin/Lovenox 30 mg SQ BID (WT < 150 kg, CrCl > 30 mL/min) AND *Sequential Compression Device (SCD) Assessment and Plan Problem List: (1) Recurrent pleural effusion on right ICD Codes: J90 - Pleural effusion, not elsewhere classified Plan: Patient presents with recurrent right loculated pleural effusion/ possible empyema Patient recently treated June 2016 for sepsis large right pleural effusion in the hernia 07/22/2016 patient underwent right thoracotomy and decortication. CT chest with IV contrast reviewed and reveals: loculated appearing pleural effusion versus with split pleural sign and compressive atelectasis right lower lobe. Mediastinal and right hilar adenopathy and patchy nodular consolidation in the right upper lobe. Titrate oxygen to maintain oxygen saturation above 92% Consulted and discussed with cardiovascular surgery await further results DVT prophylaxis SCDs (2) Bipolar disease, chronic ICD Codes: F31.9 - Bipolar disorder, unspecified Status: Chronic Plan: Patient appears stable Continue home regimen which includes Depakote and Seroquel (3) HTN (hypertension) ICD Codes: I10 - Essential (primary) hypertension Status: Chronic Plan: Patient is currently hypotensive will hold patient's home Norvasc 5 mg by mouth daily Monitor blood pressure trend (4) Hyperlipemia ICD Codes: E78.5 - Hyperlipidemia, unspecified Status: Chronic Plan: Continue patient's home statin (5) Pre-diabetes ICD Codes: R73.03 - Prediabetes Plan: prior hemoglobin A1C 6.2 and 5.5 diabetic diet Assessment and Plan Patient examined. Assessment and plan formulated with Katharina Del Valle PA-C. I agree with the above. Case d/w Cardiothoracic Surgery, Dr. Domínguez. He will consult. Physician Certification 2 Midnight Certification Type: Admission for Inpatient Services Order for Inpatient Services The services are ordered in accordance with Medicare regulations or non- Medicare payer requirements, as applicable. In the case of services not specified as inpatient-only, they are appropriately provided as inpatient services in accordance with the 2-midnight benchmark. Estimated LOS (days): 4 days is the estimated time the patient will need to remain in the hospital, assuming treatment plan goals are met and no additional complications. Post-Hospital Plan: Not yet determined Misty Green Nov 30, 2016 11:00 Mauricio Rdz DO Nov 30, 2016 22:01
--- NOTE | 2016-11-30 11:08 | RADRPT ---
EXAM DATE/TIME: 11/30/2016 10:36 [facility] COMPARISON: CT THORAX W CONTRAST, July 19, 2016, 8:28. INDICATIONS : Right side chest pain; evaluate for pleural effusion. IV CONTRAST: 80 cc Omnipaque 350 (iohexol) IV RADIATION DOSE: 6.85 CTDIvol (mGy) MEDICAL HISTORY : Hepatitis C. Cardiovascular disease SURGICAL HISTORY : None. ENCOUNTER: Initial ACUITY: 1 day PAIN SCALE: 4/10 LOCATION: Bilateral chest TECHNIQUE: Volumetric scanning of the chest was performed. Using automated exposure control and adjustment of t he mA and/or kV according to patient size, radiation dose was kept as low as reasonably achievable to obtain optimal diagnostic quality images. DICOM format image data is available electronically for review and comparison. Follow-up recommendations for detected pulmonary nodules are based at a minimum on nodule size and pa tient risk factors according to Fleischner Society Guidelines. FINDINGS: There is nodular consolidation in the right upper lobe, as well as a large loculated effusion in the right mid to lower lung zone with pleural thickening and compressive atelectasis of the right lower l obe. Possibility of empyema should be entertained. There is adenopathy in the mediastinum with right paratracheal lymph node and a 1.7 cm in short axis dimension, subcarinal 1.5 cm short axis dimension lymph node, right hilar one point centimeter short axis lymph node identified. No pericardial fluid. There are mild atelectatic changes seen in the left lower lobe. Osseous structures are intact. CONCLUSION: 1. Loculated appearing pleural effusion versus empyema with split pleural sign and compressive atelec tasis right lower lobe. 2. Mediastinal and right hilar adenopathy, and patchy nodular consolidation in the right upper lobe. Santo Calhoun MD on November 30, 2016 at 11:05 Board Certified Radiologist. This report was verified electronically.
[2016-11-30] MEDS: ACETAMINOPHEN/HYDROcodone 325 MG/10 MG TAB PO PRN ×2 (13:54→20:32)
[2016-11-30] MEDS: FAMOTIDINE 20 MG TAB PO SCH (20:29)
[2016-11-30] MEDS ORDERED: ATORVASTATIN 10 MG TAB PO SCH (21:00)
[2016-11-30] MEDS ORDERED: QUEtiapine FUMARATE 300 MG TAB PO SCH (21:00)
[2016-11-30] MEDS ORDERED: DIVALPROEX DR 500 MG TABEC PO SCH (21:00)
[2016-11-30] MEDS ORDERED: DOCUSATE CALCIUM 240 MG CAP PO SCH (21:00)
[2016-12-01 00:01] VITALS: BP 150/66; PULSE 59; RESP 16; TEMP 96.7; O2SAT 94
[2016-12-01] MEDS: ACETAMINOPHEN/HYDROcodone 325 MG/10 MG TAB PO PRN ×2 (03:29→09:52)
[2016-12-01 04:00] VITALS: BP 102/66; PULSE 66; RESP 16; TEMP 96.9; O2SAT 93
[2016-12-01 07:04] LABS: BASOPHIL # 0.1 TH/MM3 (0-0.2); BASOPHIL % 0.8 % (0.0-2.0); EOSINOPHIL # 0.4 TH/MM3 (0-0.4); EOSINOPHIL % 5.5 % (0.0-4.0); HEMATOCRIT 39.3 % (39.0-51.0); HEMO FLAGS DIFF FINAL; LYMPHOCYTE # 2.5 TH/MM3 (1.0-4.8); MEAN CELL VOLUME 85.1 FL (80.0-100.0); MEAN CORPUSCULAR HEMOGLOBIN 27.8 PG (27.0-34.0); MEAN CORPUSCULAR HGB CONC 32.7 % (32.0-36.0); NEUT % 46.7 % (16.0-70.0); PLATELET COUNT 301 TH/MM3 (150-450); RED BLOOD COUNT 4.62 MIL/MM3 (4.50-5.90); RED CELL DISTRIBUTION WIDTH 19.1 % (11.6-17.2); WHITE BLOOD COUNT 6.5 TH/MM3 (4.0-11.0)
[2016-12-01 07:14] LABS: BICARBONATE 31.9 MEQ/L (21.0-32.0); POTASSIUM 4.6 MEQ/L (3.5-5.1)
[2016-12-01 08:00] VITALS: BP 113/69; PULSE 68; RESP 18; TEMP 96; O2SAT 95
[2016-12-01 08:03] VITALS: PULSE 63
[2016-12-01] MEDS: SODIUM CHLORIDE 0.9% FLUSH 10 ML FLUSH IV FLUSH SCH (09:51)
[2016-12-01] MEDS: FAMOTIDINE 20 MG TAB PO SCH (09:51)
[2016-12-01] MEDS ORDERED: PNEUMOCOCCAL POLYVALENT INJ 25 MCG/0.5 ML SYR IM ONE (10:00)
--- NOTE | 2016-12-01 10:05 | PD.CONS ---
History of Present Illness Service CT Surgery Consult Requested By Dr. Rdz Reason for Consult Loculated right pleural effusion Primary Care Physician Sidney Steiner D.O. Diagnoses: (1) Recurrent pleural effusion on right History of Present Illness 61y/o male presents with exertional dyspnea and right pleuritic chest pain. This has been going on for quite some time. He was referred to the ED from his PCP and found to have a loculated right pleural effusion on CT scan. His history is complicated because he had this same issue in June, and underwent a right thoracotomy for decortication at that time. He denies fever, chills, malaise and does not have a leukocytosis. Review of Systems Constitutional: COMPLAINS OF: Fatigue, DENIES: Diaphoretic episodes, Fever, Weight gain, Weight loss, Chills, Dizziness, Change in appetite, Night Sweats Endocrine: DENIES: Heat/cold intolerance, Polydipsia, Polyuria, Polyphagia Eyes: DENIES: Blurred vision, Diplopia, Eye inflammation, Eye pain, Vision loss , Photosensitivity, Double Vision Ears, nose, mouth, throat: DENIES: Tinnitus, Hearing loss, Vertigo, Nasal discharge, Oral lesions, Throat pain, Hoarseness, Ear Pain, Running Nose, Epistaxis, Sinus Pain, Toothache, Odynophagia Respiratory: COMPLAINS OF: Cough, DENIES: Apneas, Snoring, Wheezing, Hemoptysis , Sputum production, Shortness of breath Cardiovascular: COMPLAINS OF: Chest pain, Dyspnea on Exertion, DENIES: Palpitations, Syncope, PND, Lower Extremity Edema, Orthopnea, Claudication Gastrointestinal: DENIES: Abdominal pain, Black stools, Bloody stools, Constipation, Diarrhea, Nausea, Vomiting, Difficulty Swallowing, Anorexia Musculoskeletal: DENIES: Joint pain, Muscle aches, Stiffness, Joint Swelling, Back pain, Neck pain Integumentary: DENIES: Abnormal pigmentation, Nail changes, Pruritus, Rash Hematologic/lymphatic: DENIES: Bruising, Lymphadenopathy Immunologic/allergic: DENIES: Eczema, Urticaria Neurologic: DENIES: Abnormal gait, Headache, Localized weakness, Paresthesias, Seizures, Speech Problems, Tremor, Poor Balance Psychiatric: DENIES: Anxiety, Confusion, Mood changes, Depression, Hallucinations, Agitation, Suicidal Ideation, Homicidal Ideation, Delusions Past Family Social History Allergies: Coded Allergies: No Known Allergies (Unverified , 11/29/16) Past Medical History Past Medical History hypertension, diabetes mellitus, hyperlipidemia bipolar disorder, chronic back pain Hepatitis C Past Surgical History as above Reported Medications Stool Softener (Docusate Calcium) 240 Mg Cap 240 Mg PO HS Hydrocodone-Acetaminophen 10-325 mg Tab 1 Tab PO Q6H PRN Ventolin Hfa 18 GM Inh (Albuterol Sulfate) 90 Mcg/Act Aer 1 Puff INH Q4H PRN Rosuvastatin (Rosuvastatin Calcium) 5 Mg Tab 5 Mg PO HS Ranitidine (Ranitidine HCl) 150 Mg Tab 150 Mg PO HS Seroquel (Quetiapine Fumarate) 300 Mg Tab 300 Mg PO HS Depakote DR (Divalproex Sodium) 500 Mg Tabdr 1,000 Mg PO HS Amlodipine (Amlodipine Besylate) 5 Mg Tab 5 Mg PO HS Family History father had oral pharyngeal cancer Social History Patient is on disability Former smoker 40 year smoking history quit 4 years ago Rare EtOH use Denies illicit drug use Active Ordered Medications Current Medications Medications (Trade) Dose Ordered Sig/Jeff Route Start Time Stop Time Status Last Admin (Zofran Inj) 4 mg Q6H PRN IV 11/30/16 02:30 (NS Flush) 2 ml BID IV FLUSH 11/30/16 09:00 11/30/16 20:30 (NS Flush) 2 ml UNSCH PRN IVF 11/30/16 02:30 (Pneumovax-23 Inj) 25 mcg ONCE ONCE IM 12/01/16 10:00 12/01/16 10:01 (Depakote Dr) 1,000 mg HS PO 11/30/16 21:00 11/30/16 20:29 (Surfak) 240 mg HS PO 11/30/16 21:00 11/30/16 20:28 (Adair 10-325 Mg) 1 tab Q6H PRN PO 11/30/16 11:00 12/01/16 03:29 (SEROquel) 300 mg HS PO 11/30/16 21:00 11/30/16 20:28 (Pepcid) 20 mg BID PO 11/30/16 21:00 11/30/16 20:29 (Lipitor) 10 mg HS PO 11/30/16 21:00 11/30/16 20:28 Physical Exam Vital Signs Vital Signs Date Time Temp Pulse Resp B/P (MAP) Pulse Ox O2 Delivery O2 Flow Rate FiO2 12/01/16 08:00 96.0 68 18 113/69 (84) 95 12/01/16 04:00 96.9 66 16 102/66 (78) 93 12/01/16 00:01 96.7 59 16 150/66 (94) 94 11/30/16 20:00 80 11/30/16 19:00 97.9 77 16 121/69 (86) 94 11/30/16 17:34 95 21 11/30/16 16:00 96.2 73 18 143/75 (97) 94 11/30/16 12:00 96.6 67 18 115/66 (82) 95 Physical Exam GENERAL: This is a well-nourished, well-developed patient, in no apparent distress. SKIN: No rashes, ecchymoses or lesions. Cool and dry. HEAD: Atraumatic. Normocephalic. No temporal or scalp tenderness. EYES: Pupils equal round and reactive. Extraocular motions intact. No scleral icterus. No injection or drainage. ENT: Nose without bleeding, purulent drainage or septal hematoma. Throat without erythema, tonsillar hypertrophy or exudate. Uvula midline. Airway patent. NECK: Trachea midline. No JVD or lymphadenopathy. Supple, nontender, no meningeal signs. CARDIOVASCULAR: Regular rate and rhythm without murmurs, gallops, or rubs. RESPIRATORY: Decreased breath sounds on the right. GASTROINTESTINAL: Abdomen soft, non-tender, nondistended. No hepato-splenomegaly , or palpable masses. No guarding. MUSCULOSKELETAL: Extremities without clubbing, cyanosis, or edema. No joint tenderness, effusion, or edema noted. No calf tenderness. Negative Homans sign bilaterally. NEUROLOGICAL: Awake and alert. Cranial nerves II through XII intact. Motor and sensory grossly within normal limits. Five out of 5 muscle strength in all muscle groups. Normal speech. Laboratory Laboratory Tests Test 12/01/16 05:48 White Blood Count 6.5 Red Blood Count 4.62 Hemoglobin 12.8 Hematocrit 39.3 Mean Corpuscular Volume 85.1 Mean Corpuscular Hemoglobin 27.8 Mean Corpuscular Hemoglobin Concent 32.7 Red Cell Distribution Width 19.1 Platelet Count 301 Mean Platelet Volume 8.0 Neutrophils (%) (Auto) 46.7 Lymphocytes (%) (Auto) 39.0 Monocytes (%) (Auto) 8.0 Eosinophils (%) (Auto) 5.5 Basophils (%) (Auto) 0.8 Neutrophils # (Auto) 3.0 Lymphocytes # (Auto) 2.5 Monocytes # (Auto) 0.5 Eosinophils # (Auto) 0.4 Basophils # (Auto) 0.1 CBC Comment DIFF FINAL Differential Comment Blood Urea Nitrogen 8 Creatinine 0.64 Random Glucose 103 Calcium Level 9.1 Sodium Level 142 Potassium Level 4.6 Chloride Level 106 Carbon Dioxide Level 31.9 Anion Gap 4 Estimat Glomerular Filtration Rate 127 Date/Time Source Procedure Growth Status 11/30/16 00:45 Blood Peripheral Aerobic Blood Culture Pending Received 11/30/16 00:45 Blood Peripheral Anaerobic Blood Culture Pending Received Result Diagram: 12/01/16 0548 12/01/16 0548 Imaging Last Impressions Chest X-Ray 11/30/16 0023 Signed Impressions: Service Date/Time: Wednesday, November 30, 2016 00:40 - CONCLUSION: 1. Large masslike density in the right chest, possibly loculated fluid. Finding would be better evaluated with chest CT with contrast. Left lung clear. Tutu Stapleton MD Chest CT 11/30/16 0000 Signed Impressions: Service Date/Time: Wednesday, November 30, 2016 10:36 - CONCLUSION: 1. Loculated appearing pleural effusion versus empyema with split pleural sign and compressive atelectasis right lower lobe. 2. Mediastinal and right hilar adenopathy, and patchy nodular consolidation in the right upper lobe. Santo Calhoun MD Course Admitted for this recurrent right pleural effusion and placed on IV antibiotics Assessment and Plan Problem List: (1) Recurrent pleural effusion on right ICD Codes: J90 - Pleural effusion, not elsewhere classified Status: Chronic Assessment and Plan 61y/o male presents with recurrent loculated pleural effusion. He has already undergone a formal decortication procedure. He may be a candidate for a REDO thoracotomy for decortication, but this will be technically difficult secondary to adhesions from the first procedure. I will discuss with Dr. Moore as he was this patient's surgeon in June. The patient wouldd like to be discharged and see Dr. Moore in the office on Friday, and I will leave that decision to Dr. Rdz. Aziza Domínguez MD Dec 01, 2016 10:05
[2016-12-01] MEDS ORDERED: HYDR-3583 PO (11:34)
--- NOTE | 2016-12-01 11:44 | HHI.PR ---
Subjective Remarks No new complaints. Pt denies cough or SOB. Objective Vitals Vital Signs Date Time Temp Pulse Resp B/P (MAP) Pulse Ox O2 Delivery O2 Flow Rate FiO2 12/01/16 08:00 96.0 68 18 113/69 (84) 95 12/01/16 04:00 96.9 66 16 102/66 (78) 93 12/01/16 00:01 96.7 59 16 150/66 (94) 94 11/30/16 20:00 80 11/30/16 19:00 97.9 77 16 121/69 (86) 94 11/30/16 17:34 95 21 11/30/16 16:00 96.2 73 18 143/75 (97) 94 11/30/16 12:00 96.6 67 18 115/66 (82) 95 Result Diagram: 12/01/16 0548 12/01/16 0548 Imaging Last Impressions Chest X-Ray 11/30/16 0023 Signed Impressions: Service Date/Time: Wednesday, November 30, 2016 00:40 - CONCLUSION: 1. Large masslike density in the right chest, possibly loculated fluid. Finding would be better evaluated with chest CT with contrast. Left lung clear. Tutu Stapleton MD Chest CT 11/30/16 0000 Signed Impressions: Service Date/Time: Wednesday, November 30, 2016 10:36 - CONCLUSION: 1. Loculated appearing pleural effusion versus empyema with split pleural sign and compressive atelectasis right lower lobe. 2. Mediastinal and right hilar adenopathy, and patchy nodular consolidation in the right upper lobe. Santo Calhoun MD Objective Remarks GENERAL: This is a well-nourished, well-developed patient, in no apparent distress. CARDIOVASCULAR: Regular rate and rhythm without murmurs, gallops, or rubs. RESPIRATORY: Clear to auscultation. Breath sounds equal bilaterally. No wheezes , rales, or rhonchi. GASTROINTESTINAL: Abdomen soft, non-tender, nondistended. Normal active bowel sounds MUSCULOSKELETAL: Extremities without clubbing, cyanosis, or edema. NEURO: Alert & Oriented x4 to person, place, time, situation. Moves all ext x4 A/P Problem List: (1) Recurrent pleural effusion on right ICD Codes: J90 - Pleural effusion, not elsewhere classified Status: Chronic Plan: Patient presents with recurrent right loculated pleural effusion/ possible empyema Patient recently treated June 2016 for sepsis large right pleural effusion in the hernia 07/22/2016 patient underwent right thoracotomy and decortication. CT chest with IV contrast reviewed and reveals: loculated appearing pleural effusion versus with split pleural sign and compressive atelectasis right lower lobe. Mediastinal and right hilar adenopathy and patchy nodular consolidation in the right upper lobe. - Pt is stable on RA - Pt evaluated by Cardiothoracic Surgeon, Dr. Mel Domínguez. - per surgery, NO need for emergent intervention. - Pt wishes to f/u with Dr. Elizabet Moore who performed Mr. Cade's previous procedure - discharge pt to home - f/u with Dr. Elizabet Moore outpt in one week - see discharge orders - NO medication changes. (2) Bipolar disease, chronic ICD Codes: F31.9 - Bipolar disorder, unspecified Status: Chronic Plan: Patient appears stable Continue home regimen which includes Depakote and Seroquel (3) HTN (hypertension) ICD Codes: I10 - Essential (primary) hypertension Status: Chronic Plan: Patient is currently hypotensive will hold patient's home Norvasc 5 mg by mouth daily Monitor blood pressure trend (4) Hyperlipemia ICD Codes: E78.5 - Hyperlipidemia, unspecified Status: Chronic Plan: Continue patient's home statin (5) Pre-diabetes ICD Codes: R73.03 - Prediabetes Plan: prior hemoglobin A1C 6.2 and 5.5 diabetic diet Mauricio Rdz DO Dec 01, 2016 11:43
--- NOTE | 2016-12-01 11:44 | HHI.DCPOC ---
Discharge Care Plan Diagnosis: (1) Recurrent pleural effusion on right (2) Pre-diabetes (3) Bipolar disease, chronic (4) HTN (hypertension) Goals to Promote Your Health * To prevent worsening of your condition and complications * To maintain your health at the optimal level Directions to Meet Your Goals Take your medications as prescribed Follow your dietary instruction Follow activity as directed Keep your appointments as scheduled Take your immunizations and boosters as scheduled If your symptoms worsen call your PCP, if no PCP go to Urgent Care Center or Emergency Room Smoking is Dangerous to Your Health. Avoid second hand smoke Call the 24-hour hour crisis hotline for domestic abuse at Mauricio Rdz DO Dec 01, 2016 11:44
== END 2016-12-01 13:10 | disposition home or self-care (01) | DRG 188 ==
LOC: NEPC 21:03 → NEDA 11-30 02:25 → N06A 11-30 06:08
PROVIDERS: ADMIT Hospitalist; ATTEND Hospitalist
DX: J90 Pleural effusion, not elsewhere classified (principal); I95.9 Hypotension, unspecified; I10 Essential (primary) hypertension; E78.5 Hyperlipidemia, unspecified; F31.9 Bipolar disorder, unspecified; E11.9 Type 2 diabetes mellitus without complications; G89.29 Other chronic pain; B19.20 Unspecified viral hepatitis C without hepatic coma; M54.5 Low back pain; Z87.891 Personal history of nicotine dependence; Z23 Encounter for immunization; Z86.73 Personal history of transient ischemic attack (TIA), and cerebral infarction without residual deficits
CPT/HCPCS: 71010; 71260; 80048; 80053; 82550; 83605; 83735; 83880; 84484; 85025; 85610; 85730; 87040; 90471; 90732; 93005; G0009; J2543; Q9967

== ENCOUNTER 2016-12-23 07:46 | Day surgery (SDC) | payer MEDICARE, OTHER ==
[~2016-12-23] VITALS: Ht 167.6 cm; Wt 90.0 kg
[~2016-12-23 07:46] MED LIST changes: -AUGM875T PO; -MORP1TAB24 PO; -VIAG100T PO
[2016-12-23 08:15] VITALS: BP 136/86; PULSE 72; RESP 20; TEMP 98.4; O2SAT 94
[2016-12-23] MEDS ORDERED: ceFAZolin 2 GM PREMIX 50 ML - implanted port/tunneled catheter insertion IV SCH (09:00)
[2016-12-23] MEDS ORDERED: VANCOMYCIN 1000 MG/NS 250 ML - implanted port/tunneled catheter IV SCH ×2 (09:00)
[2016-12-23] MEDS ORDERED: SODIUM CHLORIDE 0.9% 1000 ML IV SCH (09:00)
[2016-12-23 09:02] LABS: AUTOMATED NEUTROPHIL # 3.1 TH/MM3 (1.8-7.7); BASOPHIL # 0.1 TH/MM3 (0-0.2); BASOPHIL % 1.3 % (0.0-2.0); EOSINOPHIL # 0.4 TH/MM3 (0-0.4); EOSINOPHIL % 5.2 % (0.0-4.0); HEMATOCRIT 40.4 % (39.0-51.0); HEMO FLAGS DIFF FINAL; LYMPH % 44.6 % (9.0-44.0); LYMPHOCYTE # 3.4 TH/MM3 (1.0-4.8); MEAN CORPUSCULAR HEMOGLOBIN 28.6 PG (27.0-34.0); MEAN CORPUSCULAR HGB CONC 33.2 % (32.0-36.0); MONO % 7.9 % (0.0-8.0); PLATELET COUNT 218 TH/MM3 (150-450); RED CELL DISTRIBUTION WIDTH 18.9 % (11.6-17.2); WHITE BLOOD COUNT 7.6 TH/MM3 (4.0-11.0)
[2016-12-23 09:11] LABS: APTT (PATIENT) 30.8 SEC (24.3-30.1); PROTHROMBIN TIME - PATIENT 10.8 SEC (9.8-11.6)
[2016-12-23] MEDS ORDERED: MIDAZOLAM HCL 5 MG/5 ML VIAL ONE (10:12)
--- NOTE | 2016-12-23 10:43 | PD.RAD ---
Post Procedure Progress Note Pre Procedure Diagnosis: (1) Recurrent pleural effusion on right Post Procedure Diagnosis: (1) Recurrent pleural effusion on right Procedure Date: Dec 23, 2016 Supervising Radiologist: Hamlet Arellano Plan of Activity Patient to Unit: [facility] Patient Condition: Fair Additional Comments: Patient evaluated prior to procedure with ultrasound and fluoroscopy. Pt has only a very small amount of effusion at the right lung base. This is very thick by ultrasound. The volume is so small no procedure was done. will order a CXR for baseline See PACS Report for procedural detail/treatment Hamlet Arellano MD Dec 23, 2016 10:42
[2016-12-23 10:45] VITALS: BP_SYST 112; BP_SYST 119; BP_DIAS 58; BP_DIAS 75; PULSE 64; PULSE 80; RESP 20; TEMP 97.7; O2SAT 90; O2SAT 92
--- NOTE | 2016-12-23 11:12 | RADRPT ---
EXAM DATE/TIME: 12/23/2016 10:52 [facility] COMPARISON: CHEST SINGLE AP, November 30, 2016, 0:40. INDICATIONS : Evaluate pleural effusion. MEDICAL HISTORY : Hypercholesterolemia. Hypertension Pleural effusion, pneumonia. SURGICAL HISTORY : None. ENCOUNTER: Initial ACUITY: 1 day PAIN SCORE: 0/10 LOCATION: Bilateral chest FINDINGS: Single view chest is provided. The patient's right-sided effusion has significantly decreased in size compared to previous dated 11/30/16. The left lung is clear. The cardiac and mediastinal contours are within normal limits. The visualized bony structures are grossly intact. CONCLUSION: 1. Significant interval decrease in size of the patient's right-sided effusion. Hamlet Arellano MD on December 23, 2016 at 11:09 Board Certified Radiologist. This report was verified electronically.
--- NOTE | 2016-12-23 11:20 | RADRPT ---
EXAM DATE/TIME: 12/23/2016 10:11 [facility] COMPARISON : CT examination dated 11/30/16. Chest x-ray examination dated 11/30/16. INDICATIONS : Patient with a history with pleural effusion, needs evaluation for Aspira Drain. HISTORY OF PRESENT ILLNESS: The patient is a 61-year-old who was initially seen in early June with a large right effusion. This was drained and found to be empyema. The patient underwent decortication. The patient was seen by Dr. Choudhury post procedure was noted to have a large right pleural effusion on a CT examination of 11/30/16. The patient was seen today for evaluation for placement of a right-sided ASPIRA pleural drain. The patient was evaluated with ultrasound and fluoroscopy. There is a small amount of fluid which rem ains. This has significantly decreased when compared to previous examination of 11/30/16. As such, no procedure was performed. ASSESSMENT: 50% reduction in the amount of pleural fluid on the right. PLAN: The patient will followup with Dr. Jaramillo. TIME SPENT: 20 minutes. Hamlet Arellano MD on December 23, 2016 at 11:15 Board Certified Radiologist. This report was verified electronically.
== END 2016-12-23 11:15 | disposition home or self-care (01) ==
LOC: HROP 07:46 → HRIP 07:51 → HROP 11:15
PROVIDERS: ATTEND Thoracic Surgery (Cardiothoracic Vascular Surgery)
DX: J90 Pleural effusion, not elsewhere classified (principal); I10 Essential (primary) hypertension; E78.00 Pure hypercholesterolemia, unspecified; Z53.8 Procedure and treatment not carried out for other reasons
CPT/HCPCS: 71010; 85025; 85610; 85730; C1729; G0463; J2250; J3010; 99211